=== PATIENT | female | born 1940 | race Caucasian/White ===

== ENCOUNTER → 2023-11-26 07:22 | Outpatient (REF) | payer MEDICARE, BC, SELFPAY ==
[2023-11-26 08:30] LABS: % Basophils 0.5 % (0-2); % Eosinophils 1.2 % (0-6); % Immature Granulocytes 0.3 % (0-0.5); % Lymphocytes 10.6 % (20.5-51.1); % Monocytes 8.2 % (1.7-9.3); % Neutrophils 79.2 % (42.2-75.2); Absolute Basophils 0.1 10^3/uL (0-0.2); Absolute Eosinophils 0.1 10^3/uL (0-0.7); Absolute Lymphocytes 1.1 10^3/uL (1.2-3.4); Absolute Monocytes 0.9 10^3/uL (0.1-0.6); Absolute Neutrophils 8.2 10^3/uL (1.4-6.5); Mean Corp Hgb Conc. 34.3 g/dL (33.0-37.0); Mean Corpuscular Hgb 32.3 pg (27.0-31.0); Mean Corpuscular Volume 94.1 fL (81.0-99.0); Mean Platelet Volume 9.6 fL (7.4-10.4); Nucleated Red Blood Cells % 0 %; Platelet Count 217 10^3/uL (130-400); Red Blood Cell Count 3.72 10^6/uL (4.20-5.40); Red Cell Dist. Width 12.6 % (11.5-14.5); White Blood Cell Count 10.4 10^3/uL (4.8-10.8)
[2023-11-26 09:00] LABS: ALT (SGPT) 17 U/L (0-35); AST (SGOT) 24 U/L (14-36); Alkaline Phosphatase 82 U/L (38-126); Blood Urea Nitrogen 21 mg/dl (7-17); Calcium 9.7 mg/dl (8.4-10.2); Carbon Dioxide 26 mmol/L (22-30); Chloride 105 mmol/L (98-107); Glucose 84 mg/dl (70-99); HDL Cholesterol 69 mg/dl; LDL Cholesterol, Calculated 71 mg/dl; Sodium 135 mmol/L (135-145); Total Bilirubin 0.6 mg/dl (0.2-1.3); Total Cholesterol 152 mg/dl (50-199); Total Protein 6.4 g/dl (6.3-8.2); Triglyceride 61 mg/dl (10-149); Very Low Density Lipoprotein 12 mg/dl (0-30); eGFR > 60.00
[2023-11-26 09:27] LABS: TSH Reflex To Free T4 0.79 uIU/ml (0.47-4.68)
== END ==
LOC: REG 07:22
PROVIDERS: ATTENDING PHYSICIAN Family Medicine; REFERRING PHYSICIAN Internal Medicine Cardiovascular Disease
DX: I10 Essential (primary) hypertension (principal); E78.5 Hyperlipidemia, unspecified; R79.89 Other specified abnormal findings of blood chemistry; E61.1 Iron deficiency; D64.9 Anemia, unspecified
CPT/HCPCS: 36415; 80053; 80061; 84443; 85025

== ENCOUNTER → 2023-11-30 07:45 | Outpatient (REF) | payer MEDICARE, BC, SELFPAY | LOC: WDC 07:45 | PROVIDERS: ATTENDING PHYSICIAN Family Medicine; FAMILY PHYSICIAN Student in an Organized Health Care Education/Training Program | DX: Z12.31 Encounter for screening mammogram for malignant neoplasm of breast (principal) | CPT/HCPCS: 77063; 77067 ==

== ENCOUNTER → 2023-12-23 08:03 | Outpatient (REF) | payer MEDICARE, BC, SELFPAY | LOC: RAD 08:03 | PROVIDERS: ATTENDING PHYSICIAN Nurse Practitioner Gerontology; FAMILY PHYSICIAN Family Medicine | DX: I77.810 Thoracic aortic ectasia (principal) | CPT/HCPCS: 71275; 74174; Q9967 ==

== ENCOUNTER → 2024-01-05 14:35 | Outpatient (REF) | payer MEDICARE, BC, SELFPAY | LOC: HWRCS 14:35 | PROVIDERS: ATTENDING PHYSICIAN Nurse Practitioner Gerontology; FAMILY PHYSICIAN Family Medicine; OTHER PHYSICIAN Surgery Vascular Surgery; REFERRING PHYSICIAN Internal Medicine Cardiovascular Disease | DX: I77.810 Thoracic aortic ectasia (principal) | CPT/HCPCS: 93306 ==

== ENCOUNTER → 2024-01-07 08:09 | Outpatient (REF) | payer MEDICARE, BC, SELFPAY ==
[2024-01-07 09:46] LABS: Blood Urea Nitrogen 12 mg/dl (7-17)
== END ==
LOC: REG 08:09
PROVIDERS: ATTENDING PHYSICIAN Nurse Practitioner Gerontology; FAMILY PHYSICIAN Family Medicine
DX: I77.810 Thoracic aortic ectasia (principal)
CPT/HCPCS: 36415; 82565; 84520

== ENCOUNTER → 2024-02-05 14:16 | Outpatient (REF) | payer MEDICARE, BC, SELFPAY ==
[2024-02-05 15:49] LABS: ALT (SGPT) 22 U/L (0-35); AST (SGOT) 31 U/L (14-36)
== END ==
LOC: REG 14:16
PROVIDERS: ATTENDING PHYSICIAN Internal Medicine Cardiovascular Disease; FAMILY PHYSICIAN Family Medicine; REFERRING PHYSICIAN Thoracic Surgery (Cardiothoracic Vascular Surgery)
DX: I71.012 Dissection of descending thoracic aorta (principal); R06.00 Dyspnea, unspecified
CPT/HCPCS: 36415; 84443; 84450; 84460

== ENCOUNTER → 2024-04-19 11:21 | Outpatient (REF) | payer MEDICARE, BC, SELFPAY | LOC: RAD 11:21 | PROVIDERS: ATTENDING PHYSICIAN Family Medicine; OTHER PHYSICIAN Internal Medicine Critical Care Medicine; REFERRING PHYSICIAN Internal Medicine Cardiovascular Disease | DX: J06.9 Acute upper respiratory infection, unspecified (principal) | CPT/HCPCS: 71046 ==

== ENCOUNTER → 2024-05-31 07:30 | Outpatient (REF) | payer MEDICARE, BC, SELFPAY ==
[2024-05-31 09:00] LABS: NT-proBNP 817 pg/ml
[2024-05-31 09:12] LABS: ALT (SGPT) 16 U/L (0-35); AST (SGOT) 25 U/L (14-36); Albumin 4.1 g/dl (3.5-5.0); Alkaline Phosphatase 89 U/L (38-126); Blood Urea Nitrogen 13 mg/dl (7-17); Calcium 9.9 mg/dl (8.4-10.2); Carbon Dioxide 23 mmol/L (22-30); Chloride 103 mmol/L (98-107); Glucose 89 mg/dl (70-99); HDL Cholesterol 74 mg/dl; LDL Cholesterol, Calculated 80 mg/dl; Potassium 4.4 mmol/L (3.5-5.1); Sodium 138 mmol/L (135-145); Total Bilirubin 0.4 mg/dl (0.2-1.3); Total Cholesterol 166 mg/dl (50-199); Total Protein 6.5 g/dl (6.3-8.2); Triglyceride 60 mg/dl (10-149); Very Low Density Lipoprotein 12 mg/dl (0-30); eGFR > 60.00
== END ==
LOC: REG 07:30
PROVIDERS: ATTENDING PHYSICIAN Internal Medicine Cardiovascular Disease; FAMILY PHYSICIAN Family Medicine
DX: R06.09 Other forms of dyspnea (principal); R74.8 Abnormal levels of other serum enzymes
CPT/HCPCS: 36415; 80053; 80061; 83880

== ENCOUNTER → 2024-08-30 20:22 | Outpatient (REF) | payer MEDICARE, BC, SELFPAY | LOC: MRI 20:22 | PROVIDERS: ATTENDING PHYSICIAN Physician Assistant; FAMILY PHYSICIAN Family Medicine | DX: M16.11 Unilateral primary osteoarthritis, right hip (principal); M84.351A Stress fracture, right femur, initial encounter for fracture | CPT/HCPCS: 73721 ==

== ENCOUNTER → 2024-10-05 12:50 | Outpatient (REF) | payer MEDICARE, BC, SELFPAY | LOC: HWRAD 12:50 | PROVIDERS: ATTENDING PHYSICIAN Family Medicine | DX: R22.2 Localized swelling, mass and lump, trunk (principal) | CPT/HCPCS: 76604 ==

== ENCOUNTER → 2024-10-27 07:23 | Outpatient (REF) | payer MEDICARE, BC, SELFPAY ==
[2024-10-27 10:28] LABS: TSH Reflex To Free T4 0.71 uIU/ml (0.47-4.68)
== END ==
LOC: REG 07:23
PROVIDERS: ATTENDING PHYSICIAN Internal Medicine Cardiovascular Disease
DX: I48.91 Unspecified atrial fibrillation (principal)
CPT/HCPCS: 36415; 84443

== ENCOUNTER → 2024-11-10 06:47 | Outpatient (REF) | payer MEDICARE, BC, SELFPAY | LOC: RCS 06:47 | PROVIDERS: ATTENDING PHYSICIAN Internal Medicine Cardiovascular Disease; FAMILY PHYSICIAN Family Medicine | DX: Z01.818 Encounter for other preprocedural examination (principal); R06.09 Other forms of dyspnea; I44.7 Left bundle-branch block, unspecified | CPT/HCPCS: 78452; 93017; A9500 ==

== ENCOUNTER → 2024-11-11 08:26 | Outpatient (REF) | payer MEDICARE, BC, SELFPAY | LOC: RAD 08:26 | PROVIDERS: ATTENDING PHYSICIAN Nurse Practitioner Adult Health; FAMILY PHYSICIAN Family Medicine | DX: R91.1 Solitary pulmonary nodule (principal) | CPT/HCPCS: 71250 ==

== ENCOUNTER 2024-11-28 06:10 | Day surgery (SDC) | payer MEDICARE, BC, SELFPAY ==
[2024-11-23 13:30] VITALS: BMI 25.6
[2024-11-28 10:40] VITALS: BP 143/46; BMI 26.4
[2024-11-28 10:45] VITALS: BMI 26.4
[2024-11-28 14:18] VITALS: BP 131/38; BP 133/56
[2024-11-28 14:30] VITALS: BP 123/40
[2024-11-28 14:45] VITALS: BP 135/50
[2024-11-28 14:55] VITALS: BP 126/47
[2024-11-28 15:10] VITALS: BP 123/51
== END 2024-11-28 16:10 | disposition home or self-care (01) ==
LOC: SDS 06:10
PROVIDERS: ATTENDING PHYSICIAN Internal Medicine Critical Care Medicine
DX: R91.8 Other nonspecific abnormal finding of lung field (principal); R93.89 Abnormal findings on diagnostic imaging of other specified body structures; J44.9 Chronic obstructive pulmonary disease, unspecified; Z87.891 Personal history of nicotine dependence
CPT/HCPCS: 31629; 31652; 31628; 31624; 31623; 31627; 31654; 88172; 88173; 88305; 71045; 76000; 87015; 87070; 87102; 87116; 87205; 88112; 88333; 88342; 94640; C1887

== ENCOUNTER → 2024-12-14 12:46 | Outpatient (REF) | payer MEDICARE, BC, SELFPAY | LOC: HWRCS 12:46 | PROVIDERS: ATTENDING PHYSICIAN Internal Medicine Critical Care Medicine; FAMILY PHYSICIAN Family Medicine | DX: R06.00 Dyspnea, unspecified (principal) | CPT/HCPCS: 71046; 93306 ==

== ENCOUNTER 2024-12-27 19:59 | Inpatient (IN) | payer MEDICARE, BC, SELFPAY ==
[2024-12-27] VITALS (7 sets, daily range): BP systolic 115–154; BP diastolic 37–98; BMI 28.5; BMI 27.8
[2024-12-27 16:11] LABS: % Eosinophils 1.9 % (0-6); % Immature Granulocytes 0.4 % (0-0.5); % Lymphocytes 16.6 % (20.5-51.1); % Monocytes 8.5 % (1.7-9.3); % Neutrophils 71.6 % (42.2-75.2); Absolute Basophils 0.1 10^3/uL (0-0.2); Absolute Eosinophils 0.1 10^3/uL (0-0.7); Absolute Lymphocytes 1.2 10^3/uL (1.2-3.4); Absolute Monocytes 0.6 10^3/uL (0.1-0.6); Absolute Neutrophils 5.2 10^3/uL (1.4-6.5); Hematocrit 31.5 % (37.0-47.0); Hemoglobin 10.5 g/dL (12.0-16.0); Mean Corp Hgb Conc. 33.3 g/dL (33.0-37.0); Mean Corpuscular Hgb 32.6 pg (27.0-31.0); Mean Corpuscular Volume 97.8 fL (81.0-99.0); Mean Platelet Volume 8.9 fL (7.4-10.4); Nucleated Red Blood Cells % 0 %; Platelet Count 301 10^3/uL (130-400); Red Blood Cell Count 3.22 10^6/uL (4.20-5.40); Red Cell Dist. Width 12.6 % (11.5-14.5); White Blood Cell Count 7.3 10^3/uL (4.8-10.8)
[2024-12-27 16:38] LABS: NT-proBNP 1470 pg/ml; Troponin I < 0.012 ng/ml
[2024-12-27 16:51] LABS: Chloride 107 mmol/L (98-107); Sodium 137 mmol/L (135-145)
[2024-12-27 16:52] LABS: ALT (SGPT) 19 U/L (0-35); AST (SGOT) 25 U/L (14-36); Albumin 4.1 g/dl (3.5-5.0); Alkaline Phosphatase 71 U/L (38-126); Blood Urea Nitrogen 12 mg/dl (7-17); Calcium 9.5 mg/dl (8.4-10.2); Carbon Dioxide 24 mmol/L (22-30); Estimated Creatinine Clearance 36 ml/min; Glucose 96 mg/dl (70-99); Total Bilirubin 0.5 mg/dl (0.2-1.3); Total Protein 6.3 g/dl (6.3-8.2); eGFR 55.55
--- NOTE | 2024-12-27 18:07 | ED.GENMED ---
History of Present Illness
General
Chief Complaint: Swelling
Time Seen by Provider: 12/27/24 16:49
History of Present Illness
History of Present Illness:
84-year-old female with history of COPD, hypertension, hyperlipidemia, A-fib on Xarelto presenting to the emergency department for lower extremity swelling. Patient reports symptoms for the past week. She also notes some lower extremity
discoloration. Denies significant pain to the lower extremities, however has been having issues with dyspnea, particularly on exertion. She saw her primary care doctor today who advised that she come to the hospital for further evaluation. Denies
chest pain. Denies abdominal pain. Notes chronic cough, no interval worsening. Denies fever. Reports compliance with her medications. Particularly, she has been increasing her Lasix to double of her dose in the morning and at night with no
improvement. Denies additional acute medical complaints
Past History
Past History
ED Past Medical History: Arrthythmia, Hypercholesterolemia, Valvular disease () and Other (migraines)
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
Social History
Tobacco: Non-smoker
Alcohol: None
Drug: None
Personal:
Living: with family
Employment: Retired
Family History
Family History: Other (Noncontributory)
Phy Exam
Physical Exam
Physical Exam:
General: Well-appearing, no clinical signs of dehydration, nontoxic and in no acute distress
HEENT: protecting airway
Neck: appears supple
CV: Normal heart rate, regular rhythm
Resp: No accessory muscle use, no increased work of breathing, lungs clear to auscultation bilaterally
Abd: No distention
Extremities: +2 pitting edema bilaterally without significant tenderness to palpation. Swelling appears to be symmetric. There is some skin discoloration to the la of the right leg in comparison to the left. Distal pulses are dopplerable
Neuro: alert, no focal neurologic deficit
: deferred
Rectal: deferred
Psych: Normal affect
Skin: Intact
Scores
Heart Failure Risk
Heart Failure Risk Score: Yes
History of Stroke or TIA: No
History of intubation for respiratory distress: No
Heart rate on ED arrival >/= 110: No
SaO2 <90% on arrival on room air: No
HR >/=110 during 3min walk test (or too ill to perform test): No
ECG has acute ischemic changes: No
Urea >/=12mmol/L (BUN 33.6mg/dL): No
Serum CO2>/=35mmol/L: No
Troponin I or T elevated to MA Level (0.4mg/dL): No
NT-proBNP >/=5,000ng/L (5,000pg/ml): No
HF Risk Score: 0
Admission Status: LOW RISK 2.8% Consider discharge to home with f/u visit to PCP/Educational Coordinator
Course
Orders/Labs/Results
Orders:
Orders
12/27/24 Dinner
Cholesterol Lowering
At Your Request: Full Participation
Cholesterol Lowering: Sodium, 2 Gram
12/27/24 15:56
Electrocardiogram (*1) Urgent
Reason for Study: Shortness of Breath
EKG- Treatment ONCE
12/27/24 16:03
Complete Blood Count/With Diff Urgent
Comprehensive Metabolic Panel Urgent
NT-proBNP Urgent
Troponin I Urgent
12/27/24 17:33
CR Chest - 2 Views Urgent
Comment:
Reason For Exam: lower extremity swelling, suspect CHF
12/27/24 19:04
Furosemide [Lasix] 40 mg IV NOW STA
12/27/24 19:32
CARDIOLOGY CONSULT Routine
Consulting Provider: Mike Keyes
Was physician already notified: Yes
Reason for consult: CHF, dyspnea on exertion
12/27/24 19:40
Admit/Transfer Patient As Directed
Co-Sign Provider:
Level of Care: Inpatient admission
Assign to:: Telemetry
Physician / Group: Hospitalist
Diagnosis: CHF
Reason for Telemetry: Arrhythmia
Date to Stop Telemetry: 12/30/24
Time to Stop Telemetry: 11:00
Reason for Hospitalization: CHF
Expected length of stay greater than two midnights?: Yes
ELOS- Estimated Length of Stay in days: 3
I certify the patient meets the requirements for IP care: Yes
PRN Pain Medication Management As Directed
May give lesser potent ordered pain med per pt: Yes
preference::
Protocol:: Medication orders for pain may be administered in a
manner that supports deferring to patient preference
when the pt is:
- Requesting an ordered lesser potent pain medication.
Least to most potent pain medications are defined
as: acetaminophen < NSAID < tramadol < opioids
(morphine, oxycodone, hydromorphone).
- Requesting a lesser dose of the same medication IF
ORDERED.
- Requesting a less intrusive route of administration
if both routes are prescribed by the provider (PO <
IV).
12/27/24 19:47
Code Status As Directed
Resuscitation Status: Do not resuscitate
Reached after discussion with pt or family/Healthcare POA: Yes
DNR Bracelet Application ONCE
12/27/24 20:43
Troponin I Q6H
Comment: at admission & every 6 hours x 2 (3 total), ECG to be done with each level
12/27/24 20:43
Echo 2D MMode Color/Doppler Routine
Reason for Study: heart failure
HF DIETARY CONSULT Routine
HF EDUCATOR CONSULT Routine
Comment:
Activity As Directed
Activity Level: Out of Bed-Early Mobility
Intake/ Output As Directed
Frequency: Per unit guidelines
Patient Education As Directed
Type: CHF folder
Comment: give on admission. Document in Interdisciplinary Education record
Sleep Apnea Assessment by RN As Directed
Comment:
Physician Instructions:
Vital Signs As Directed
Frequency: Other
Additional Instructions:: Q12 or per unit guidelines if more frequent.
Weight As Directed
Frequency: Daily
Type of Scale: Standing Scale
Comment: Daily morning weight. If unable to stand, use balanced bed scale.
Weight As Directed
Frequency: Once
Type of Scale: Standing Scale
Comment: Upon Admission. If unable to stand, use balanced bed scale.
Pulse Ox/cont/shift [RESP] Routine
Quantity: 1
Special Instructions: Daily pulse oximetry at rest. If greater than 92% at rest also obtain pulse oximetry
while ambulating as tolerated.
12/27/24 21:00
Budesonide/Formoterol 160/4.5 [Symbicort 160/4.5 Mcg Inhaler] 2 puff INH R BID
12/27/24 22:00
Amitriptyline [Elavil] 10 mg PO HS
Atorvastatin [Lipitor] 10 mg PO HS
12/28/24 02:43
Troponin I Q6H
Comment: at admission & every 6 hours x 2 (3 total), ECG to be done with each level
12/28/24 06:00
Cardiovascular Evaluation IN AM
Complete Blood Count/With Diff IN AM
Comprehensive Metabolic Panel IN AM
Magnesium IN AM
TSH Reflex To Free T4 IN AM
12/28/24 08:00
Amiodarone [Pacerone] 100 mg PO DAILY
Amlodipine [Norvasc] 5 mg PO DAILY
Furosemide [Lasix] 40 mg IV BID AT 0800,1600
Montelukast Sodium [Singulair] 10 mg PO DAILY
Pantoprazole [Protonix] 40 mg PO DAILY
12/28/24 08:43
Troponin I Q6H
Comment: at admission & every 6 hours x 2 (3 total), ECG to be done with each level
12/28/24 18:00
Rivaroxaban [Xarelto] 20 mg PO QPM
12/30/24 11:00
DC Protocol for Telemetry ONCE
Abnormal Lab Results
12/27/24
16:03
RBC 3.22 L 10^6/uL
(4.20-5.40)
Hgb 10.5 L g/dL
(12.0-16.0)
Hct 31.5 L %
(37.0-47.0)
MCH 32.6 H pg
(27.0-31.0)
Lymphocytes % 16.6 L %
(20.5-51.1)
12/27/24 16:03
12/27/24 16:03
Vital Signs
Initial and Last Documented VS:
Initial Vital Signs
Temp Pulse Resp BP Pulse Ox
98.5 F 73 16 130/98 99
12/27/24 15:54 12/27/24 15:54 12/27/24 15:54 12/27/24 15:54 12/27/24 15:54
Last Documented Vital Signs
Temp Pulse Resp BP Pulse Ox
98.9 F 67 16 146/54 96
12/27/24 23:27 12/27/24 23:27 12/27/24 23:27 12/27/24 23:27 12/27/24 23:27
MDM/Problems Addressed
MDM/Problems Addressed:
84-year-old female with history of atrial fibrillation on Xarelto, hypertension, hyperlipidemia, COPD presenting for worsening lower extremity edema and dyspnea, sent in by primary care doctor. Vital signs on arrival are normal.
On exam patient is resting comfortably, no acute patient does have significant swelling to lower extremities which she reports is worsening in the past week despite increasing her Lasix dosage. Concern for failure of outpatient therapy and possible
developing CHF in the setting of dyspnea and dyspnea on exertion. Plan for laboratory analysis, chest x-ray imaging. No present neurovascular compromise to the lower extremities. No significant cellulitis. There is some slight skin
discoloration. No significant pain on palpation, swelling is symmetric and patient is on Xarelto without present concern for DVT.
19:00 -CT shows possible mild CHF. BNP is elevated. Plan for admission for diuresis and likely cardiac consultation.
*EKG
Interpreted by ED Provider?: Yes
EKG Intrepretation Date: 12/27/24
EKG Intrepretation Time: 18:15
Interpretation: abnormal
Comparison EKG: no changes (11/10/24)
Heart Rate: 55
Rate: bradycardiac
Rhythm: sinus
Shidler: right axis deviation
Interval: normal interval and third degree heart block
QRS Pattern: left bundle branch block
Ischemia: non-specific ST changes
*Critical Care Note
Total Time (30-74mins, 75-104mins- exclusive of procedures): Not Applicable
ED Attending Note
-
Portions of this chart may have been created with voice recognition software.� Occasional wrong word or��sound alike� substitutions may have occurred due to the inherent limitations of voice recognition software.
Discharge Plan
Departure
Patient Disposition: Admit
Date of Disposition: 12/27/24
Time of Disposition: 19:26
Presentation/result/management discussed w/ accepting MD/DO: Hospitalist
Patient with high blood pressure during this ER visit?: No
Condition: Fair
Discharge Problem:
Swelling of both lower extremities, Dyspnea on exertion
Interventions
Interventions:
*Risk Screen - Suicide Last Done: 12/27/24 15:56
*General Assessment Last Done: 12/27/24 16:52
*Neglect/Abuse Screening Last Done: 12/27/24 15:56
*ED- Fall Risk Assessment Last Done: 12/27/24 16:52
*ED COVID-19 Vaccine History Last Done: 12/27/24 16:52
*Nursing Disposition Last Done: 12/27/24 20:30
ED- Cardiac Assessment Last Done: 12/27/24 16:52
ED- Pulmonary Assessment Last Done: 12/27/24 16:52
ED-Skin Assessment Last Done: 12/27/24 16:52
Discharge Date and Time
Discharge Date/Time: 12/27/24 20:33
[2024-12-27] MEDS: LASIX 40 MG IV (19:32)
--- NOTE | 2024-12-27 19:53 | HPS.HSE ---
Family Physician
-
Family Physician: Bridget Quintanilla MD
Chief Complaint
-
LE swelling
History of Present Illness
84yo F with PMHX of anxiety, HTN, HLD, pulmonary nodule, COPD, atopic d/o, GERD, CHF, Afib on Xarelto came with weeks of worsening LE swelling. She also gailed appr 0lbs. Noticed worsneing SOB on excertion but no chest pain. 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
instructed her to take doubled dose of lasix initially and it helped, but then swelling came back and patient was trying to take extra dose of lasix nightly for pas week before admission, but without result. Also c/o lack of appetite.
Her PCP sent her to ED
Medical History
Past Medical History
Past Medical History: Reports Other
Additional Past Medical History:
see HPI
Past Surgical History: Reports None
Social History
Tobacco: Former Smoker
Alcohol: Occasional
Drug: None
Family History
Family History: Not pertinent
Allergies / Home Medications
Allergies reflects when Allergies were last updated in [facility] [employer].
Home Medications with original date entered in [facility]
Allergy/Medication List:
Allergies
Allergy/AdvReac Type Severity Reaction Status Date / Time
albuterol Allergy Unknown Unknown Verified 11/28/24 10:51
mometasone furoate Allergy Unknown couldn't Verified 11/28/24 10:50
breathe
adhesive Allergy Rash Verified 11/28/24 10:50
Home Medications
Loratadine 10 mg PO DAILY 04/01/18
losartan 25 mg tablet 50 mg PO BID 04/01/18
rivaroxaban 20 mg tablet (Xarelto) 20 mg PO QPM #30 tabs 08/13/18
Probiotic 1 dose PO DAILY 11/23/24
amiodarone 100 mg tablet 100 mg PO DAILY 11/23/24
amitriptyline 10 mg tablet 10 mg PO HS 11/23/24
amlodipine 5 mg tablet 5 mg PO DAILY 11/23/24
atorvastatin 10 mg tablet 10 mg PO HS 11/23/24
fluticasone furoate 100 mcg-vilanterol 25 mcg/dose inhalation powder 1 inh inhalation BID 11/23/24
furosemide 20 mg tablet 20 mg PO 2100 11/23/24
furosemide 20 mg tablet 40 mg PO DAILY 11/23/24
montelukast 10 mg tablet (Singulair) 10 mg PO DAILY 11/23/24
omeprazole 40 mg capsule,delayed release 40 mg PO DAILY 11/23/24
Review of Systems
-
A 12 point ROS was completed and negative except as noted: Yes
Constitutional: Reports See HPI
Respiratory: Reports See HPI
Physical Exam
Vital Signs
Vital Signs
Temp Pulse Resp BP Pulse Ox
98.5 F 59 18 154/41 98
12/27/24 15:54 12/27/24 19:32 12/27/24 19:30 12/27/24 19:32 12/27/24 19:30
Physical Exam
General: Well Developed, No Apparent Distress and Comfortable
HEENT: NormoCephalic, Anicteric and Moist mucous membranes
Respiratory: Crackles; No Wheezes or Rales
Cardiac: S1/S2 and Regular Rhythm; No Tachycardia or Murmur
GI: Soft, Non Tender and Non Distended
Genito-urinary: No costovertebral tender
Musculoskeletal: No Clubbing, No Cyanosis, Edema, Left Lower Extremity and Edema, Right Lower Extremity
Skin: Warm; No Rash or Jaundice
Neuro: Awake, Alert, Oriented and AO x 3
Psych: Calm
Laboratory Results
-
12/27/24 16:03
12/27/24 16:03
Laboratory Results
Total Bilirubin 0.5 mg/dl (0.2-1.3) 12/27/24 16:03
AST 25 U/L (14-36) 12/27/24 16:03
ALT 19 U/L (0-35) 12/27/24 16:03
Alkaline Phosphatase 71 U/L (38-126) 12/27/24 16:03
Troponin I < 0.012 ng/ml 12/27/24 16:03
Data Reviewed
-
Diagnostic Radiology: Report Reviewed by me
Lab Data: Labs Reviewed by me
Impression/Plan
-
A/P:
#CHF exacerbation
Echo, daily weight, follow electrolytes, Cr
Cardio consult
Follow trops
Check lipids and TSH
#COPD, not in exacerbation
#Hx of pulmonary nodule
cont bronchodilators
Saw as outpatient
#Afib, unspecified
cont Xarelto, rate control telemetry
#Anemia
eventual anemia w/u
Watch CBC
#HLD
#ASCVD
#Essential HTN
#Atopic D/O
#GERD
#Insomnia
cont home meds
DVT ppx Xarelto
DNR/DNI - discussed with patient and family bedside
I have spent at least 78min admitting the patient
[2024-12-27] MEDS: LIPITOR 10 MG PO (21:11)
[2024-12-27] MEDS: ELAVIL 10 MG PO (21:11)
[2024-12-27] MEDS: SYMBICORT 160/4.5 MCG INHALER INH (22:09)
[2024-12-28] VITALS (8 sets, daily range): BP systolic 111–166; BP diastolic 47–81; PULSE 73; O2SAT 97–98; BMI 27.6
[2024-12-28 03:10] LABS: Troponin I < 0.012 ng/ml
[2024-12-28] MEDS: PROTONIX 40 MG PO (08:28)
[2024-12-28] MEDS: PACERONE 100 MG PO (08:28)
[2024-12-28] MEDS: SINGULAIR 10 MG PO (08:28)
[2024-12-28] MEDS: SYMBICORT 160/4.5 MCG INHALER 2 PUFF INH ×2 (08:30→19:29)
[2024-12-28] MEDS: NORVASC 5 MG PO (08:30)
[2024-12-28] MEDS: LASIX 40 MG IV ×3 (08:31→16:40)
[2024-12-28 08:51] LABS: % Basophils 0.9 % (0-2); % Eosinophils 2.6 % (0-6); % Immature Granulocytes 0.5 % (0-0.5); % Lymphocytes 14.4 % (20.5-51.1); % Monocytes 7.1 % (1.7-9.3); % Neutrophils 74.5 % (42.2-75.2); Absolute Basophils 0.1 10^3/uL (0-0.2); Absolute Eosinophils 0.2 10^3/uL (0-0.7); Absolute Lymphocytes 0.9 10^3/uL (1.2-3.4); Absolute Monocytes 0.5 10^3/uL (0.1-0.6); Absolute Neutrophils 4.8 10^3/uL (1.4-6.5); Hematocrit 32.2 % (37.0-47.0); Hemoglobin 10.7 g/dL (12.0-16.0); Mean Corp Hgb Conc. 33.2 g/dL (33.0-37.0); Mean Corpuscular Hgb 32.3 pg (27.0-31.0); Mean Corpuscular Volume 97.3 fL (81.0-99.0); Mean Platelet Volume 9.3 fL (7.4-10.4); Nucleated Red Blood Cells % 0 %; Platelet Count 268 10^3/uL (130-400); Red Blood Cell Count 3.31 10^6/uL (4.20-5.40); Red Cell Dist. Width 12.6 % (11.5-14.5); White Blood Cell Count 6.4 10^3/uL (4.8-10.8)
[2024-12-28 09:17] LABS: Troponin I < 0.012 ng/ml
--- NOTE | 2024-12-28 09:31 | W.PN.HOSP.TC ---
Today's Communication/Plan
-
see outlined plan below
Assessment / Plan
Assessment / Plan
echo: Normal left ventricular size and systolic function. No regional wall motion abnormalities are seen. LV ejection fraction is 55-60% by Lee's method of discs. Mild concentric left ventricular hypertrophy. Abnormal (paradoxical) septal motion
consistent with left bundle branch block
Moderate, eccentric aortic regurgitation. Mild to moderate tricuspid regurgitation. Estimated pulmonary artery pressure of 35 mmHg, Moderate pulmonic regurgitation.
Assessment:
Acute on chronic CHF exacerbation
- echo from 12/14 summarized above
- continue IV Lasix 40mg BID - requires intensive monitoring of I/Os, weights, lytes
- CHF education
- Cardiology consult
COPD, not in exacerbation
Hx of pulmonary nodule
- cont bronchodilators
- Saw as outpatient
Afib, unspecified
- continue Xarelto (renally dosed, reviewed with pharmacy)
- continue Amiodarone
- continue tele monitoring
Normocytic Anemia
- add on anemia workup
- follow CBC
HLD
ASCVD
- statin
Essential HTN
- continue CCB/ARB
Atopic D/O
GERD
Insomnia
DVT ppx: Xarelto
Code: DNR/DNI
Anticipated Discharge: > 48 hours
Subjective/Interval History
-
Date of Service: December 28, 2024
weight down 2kg per scale
Objective Data
-
Labs:
Laboratory Results
12/28/24
08:33
WBC 6.4
Hgb 10.7 L
Hct 32.2 L
Plt Count 268
Sodium Pending
Potassium Pending
Chloride Pending
Carbon Dioxide Pending
BUN Pending
Creatinine Pending
Glucose Pending
Calcium Pending
Total Bilirubin Pending
AST Pending
ALT Pending
Alkaline Phosphatase Pending
Vital Signs:
Vital Signs
Temp Pulse Resp BP Pulse Ox
98.2 F 66 16 160/52 97
12/28/24 08:28 12/28/24 08:30 12/28/24 08:30 12/28/24 08:28 12/28/24 08:30
I&O
12/27/24 12/28/24 12/29/24
06:59 06:59 06:59
Output Total 200 / 200
Balance -200 / -200
Physical Exam
-
General: No Apparent Distress
HEENT: Normocephalic and Atraumatic
Respiratory: Crackles
Cardiac: Irregular Rhythm
GI: Soft and Nontender
Musculoskeletal: Edema, Right Lower Extrem and Edema, Left Lower Extrem
Neuro: AO x 3
Psych: Calm
Data Reviewed
-
Total Time Spent with Patient (in minutes): 51
Labs: Labs Reviewed by me
[2024-12-28 09:35] LABS: ALT (SGPT) 18 U/L (0-35); AST (SGOT) 25 U/L (14-36); Albumin 3.8 g/dl (3.5-5.0); Alkaline Phosphatase 65 U/L (38-126); Blood Urea Nitrogen 9 mg/dl (7-17); Calcium 9.4 mg/dl (8.4-10.2); Carbon Dioxide 22 mmol/L (22-30); Chloride 109 mmol/L (98-107); Estimated Creatinine Clearance 58 ml/min; Glucose 91 mg/dl (70-99); HDL Cholesterol 60 mg/dl; LDL Cholesterol, Calculated 72 mg/dl; Magnesium 2.1 mg/dl (1.6-2.3); Potassium 3.9 mmol/L (3.5-5.1); Sodium 137 mmol/L (135-145); Total Bilirubin 0.6 mg/dl (0.2-1.3); Total Cholesterol 145 mg/dl (50-199); Triglyceride 68 mg/dl (10-149); Very Low Density Lipoprotein 13 mg/dl (0-30); eGFR > 60.00
[2024-12-28 09:52] LABS: TSH Reflex To Free T4 0.66 uIU/ml (0.47-4.68)
[2024-12-28 10:00] LABS: Iron 83 ug/dl (37-170)
--- NOTE | 2024-12-28 10:08 | CON.CAR ---
Addendum entered and electronically signed by Mode Forman MD 12/28/24 16:10:
I saw and examined the patient.
The Bench Molder's note was reviewed and I agree with the note.
Comment: Briefly, 84-year-old woman presenting with worsening lower extremity edema, dyspnea and weight gain concerning for acute decompensated heart failure
Still with lower extremity edema on exam and weight is higher than her reported dry weight of 138 pounds
Tells me she initially responded well to 40 mg of IV Lasix however did have much urine output today, may need to use higher dose
Would likely benefit from leg elevation and Tubigrip's to mobilize lower extremity edema
Hopefully can transition to oral Lasix in the next 24 to 48 hours
Rest per Nurys Chaves
Original Note:
Consultation
Consultation Request
Date/Time Consultation Requested: 12/27/2024 at 1932
Date/Time Consultation Performed: 12/28/2024 at 0847
Requesting Provider: Dr. Li
Performing Provider: Dr. Forman
Reason for Consultation: Acute HF
Medical History
-
History of Present Illness:
Patient came to [facility] ER last night with increased LE edema and SOB after evaluation by her PCP in the office and was admitted with acute HF and cardiology is now consulted. Patient was seen in the office on 10/25/2024 is preoperative clearance for
planned hip surgery and was recommended a dobutamine nuclear stress test which was performed on 11/10/2024 and showed no evidence of ischemia. Around that time patient had increased LE edema and her Lasix dose was increased. At the office visit on
10/25/2024 the patient was taking Lasix 40 mg a.m. and 20 mg p.m. daily, but when she noticed increased LE edema she was briefly placed on a regimen of 40 mg BID and her LE edema improved. The LE edema came back and so she went on the higher dose
again for a shorter period of time and then went back to her regular dosing so that just prior to this admission her dosing was Lasix 40 mg a.m. and 20 mg p.m. daily. Additionally patient purchased compression stockings on her own and while she was
at the [facility] and walking more than usual last week she took to wearing them 24 hours a day for at least 2 days in a row. Also while at the [facility] she was eating out for most meals except for lunch when she was making her own turkey lunch meat
sandwiches. Patient noticed increased dyspnea on exertion, but no chest pain was seen by her PCP in the office yesterday and referred to the ER due to clinical findings of acute HF. In the ER her proBNP was 1470. Patient was admitted and started
on Lasix 40 mg IV BID and she feels her LE edema is already improving.
PMH:
COPD
Pulmonary nodule
Groundglass nodule in the RML increased in size with initial bronchoscopy brushings suspicious for malignancy although final report was negative there was a suspicion of squamous metaplasia, outpatient evaluation by radiation oncology pending
Paroxysmal typical atrial flutter
Paroxysmal atrial fibrillation
s/p aneurysm repair
previously on amiodarone stopped due to GI issues in 06/2018 but later restarted for recurrent arrhythmia
Chronic Xarelto OAC
Thoracic aortic aneurysm s/p repair by Dr. King at [facility] 05/2018
HTN
HLD
chronic LBBB
coronary artery calcification by chest CT, but nonobstructive CAD by cath 03/2018
COPD
Past Medical History
Past Medical History: Other (in HPI)
Past Surgical History: Gynecological ([id number]), Orthopedic and Tonsilectomy
Social History
Tobacco: Former Smoker
Alcohol: Occasional (Once a month or last)
Drug: None
Personal:
Living: Alone
Family History
Family History: CAD (Also CHF), Cancer and Hypertension
Allergies / Home Medications
Allergy/AdvReac Type Severity Reaction Status Date / Time
adhesive Allergy Rash Verified 11/28/24 10:50
albuterol Allergy felt like Verified 12/27/24 20:59
she was
going to
pass out.
mometasone furoate Allergy couldn't Verified 12/27/24 20:59
breathe
�Medication �Instructions �Recorded �Confirmed �Type
Loratadine 10 mg PO DAILY Allergies 04/01/18 12/28/24 History
losartan 25 mg tablet 50 mg PO BID Blood Pressure 04/01/18 12/28/24 History
rivaroxaban 20 mg tablet (Xarelto) 20 mg PO QPM #30 tabs 08/13/18 12/28/24 Rx
Probiotic 1 dose PO DAILY Supplement 11/23/24 12/28/24 History
amiodarone 100 mg tablet 100 mg PO DAILY AFIB 11/23/24 12/28/24 History
amitriptyline 10 mg tablet 10 mg PO HS Mental Health/Anxiety 11/23/24 12/28/24 History
amlodipine 5 mg tablet 5 mg PO DAILY Blood Pressure 11/23/24 12/28/24 History
atorvastatin 10 mg tablet 10 mg PO HS High Cholesterol 11/23/24 12/28/24 History
fluticasone furoate 100 1 inh inhalation BID 11/23/24 11/28/24 History
mcg-vilanterol 25 mcg/dose Lung/Breathing Issues
inhalation powder
furosemide 20 mg tablet 20 mg PO 2100 Fluid 11/23/24 12/28/24 History
Retention/Swelling
furosemide 20 mg tablet 40 mg PO DAILY Fluid 11/23/24 12/28/24 History
Retention/Swelling
montelukast 10 mg tablet 10 mg PO DAILY ASTHMA 11/23/24 12/28/24 History
(Singulair)
omeprazole 40 mg capsule,delayed 40 mg PO DAILY GERD 11/23/24 12/28/24 History
release
Review of Systems
-
History Source: Patient and Family (Son on speaker phone throughout entire HPI)
All other systems: Negative unless noted
Physical Exam
Vital Signs
Temp Pulse Resp BP Pulse Ox
98.2 F 66 16 160/52 97
12/28/24 08:28 12/28/24 08:30 12/28/24 08:30 12/28/24 08:28 12/28/24 08:30
GEN: NAD. AAOx3
HEENT: EOMI, MMM
LUNGS: RA. Clear anterolaterally without wheeze or rales
CV: SR on telemetry reg, S1/S2, 2/6 PSM
ABD: ND
EXT: +1-2 right worse than left LE edema. Right worse than left LE ecchymosis, right LE ecchymosis from knee to ankle.
NEURO: Gross non-focal
SKIN: No rash
Lab Results
12/28/24 08:33
12/28/24 08:33
Troponin I < 0.012 ng/ml 12/28/24 08:33
Kyc-O-Dnnhdwqiajm Pept 1470 pg/ml 12/27/24 16:03
Impression / Plan
-
PCP: Dr. Quintanilla
Card: Dr. Lola Rosa
Impression:
Admitted with SOB and LE edema 12/27/2024
Acute HFpEF
Right worse than left LE ecchymosis and edema
COPD
Pulmonary nodule
Groundglass nodule in the RML increased in size with initial bronchoscopy brushings suspicious for malignancy although final report was negative there was a suspicion of squamous metaplasia, outpatient evaluation by radiation oncology pending
Paroxysmal typical atrial flutter
Paroxysmal atrial fibrillation
s/p aneurysm repair
previously on amiodarone stopped due to GI issues in 06/2018 but later restarted for recurrent arrhythmia
Chronic Xarelto OAC
Thoracic aortic aneurysm s/p repair by Dr. King at [facility] 05/2018
HTN
HLD
chronic LBBB
coronary artery calcification by chest CT, but nonobstructive CAD by cath 03/2018
COPD
ECHO 11/2017: EF 60%, mild MAC, mild MR, mild AI, mild TR, PAP 30-35mmHg, dilated ascending aorta 4.5cm
ECHO 08/04/18: EF 60-65%, mild MR, aortic sclerosis, mild to mod TR, PAP 31-35mmHg, mild to mod NM, stable aortic root repair
Echo 12/14/2024: EF 55 to 60%, mild concentric LVH, moderate eccentric aortic regurgitation, mild to moderate TR, moderate pulmonic regurgitation
Dobutamine nuclear stress test 11/10/2024: Perfusion imaging was normal with no definitive evidence of ischemia or prior infarct, EF 57% without WMA
Plan:
-Patient came to [facility] ER last night with increased LE edema and SOB after evaluation by her PCP in the office and was admitted with acute HF and cardiology is now consulted. Patient was seen in the office on 10/25/2024 is preoperative clearance for
planned hip surgery and was recommended a dobutamine nuclear stress test which was performed on 11/10/2024 and showed no evidence of ischemia. Around that time patient had increased LE edema and her Lasix dose was increased. At the office visit on
10/25/2024 the patient was taking Lasix 40 mg a.m. and 20 mg p.m. daily, but when she noticed increased LE edema she was briefly placed on a regimen of 40 mg BID and her LE edema improved. The LE edema came back and so she went on the higher dose
again for a shorter period of time and then went back to her regular dosing so that just prior to this admission her dosing was Lasix 40 mg a.m. and 20 mg p.m. daily. Additionally patient purchased compression stockings on her own and while she was
at the [facility] and walking more than usual last week she took to wearing them 24 hours a day for at least 2 days in a row. Also while at the [facility] she was eating out for most meals except for lunch when she was making her own turkey lunch meat
sandwiches. Patient noticed increased dyspnea on exertion, but no chest pain was seen by her PCP in the office yesterday and referred to the ER due to clinical findings of acute HF. In the ER her proBNP was 1470. Patient was admitted and started
on Lasix 40 mg IV BID and she feels her LE edema is already improving.
-ECG from last night reviewed by me and looks like SR with known chronic LBBB. ECG repeated this morning and the computer reading is atrial flutter, but I believe it is again SR with LBBB.
-EF was 55 to 60% by echo 12/14/2024 and a repeat echo was ordered and already performed. We will follow-up as she does have history of moderate eccentric aortic regurgitation
-Continue with Lasix 40 mg IV BID, patient was taking Lasix 40 mg a.m. and 20 mg p.m. daily just prior to admission
-Patient is not chronically on BB due to underlying sinus bradycardia and the preference to continue amiodarone therapy for arrhythmia suppression
-Outpatient dose of losartan 50 mg BID was held on admission for unclear reasons. Will restart now, orders placed by me
-Patient is not chronically on aldosterone antagonist due to preserved EF
-Patient is not chronically on SGLT2 inhibitor due to history of recurrent UTI
-Patient with known paroxysmal atrial fibrillation and typical flutter, but last known recurrence of arrhythmia was 07/2024. Outpatient dose of amiodarone 100 mg daily was continued for rhythm suppression. QTc 484 ms on ECG reviewed by me 01/18
-Outpatient dose of Xarelto was decreased to 15 mg daily due to reduced CrCl
-Patient has been recommended radiation therapy for RML nodule after suspicious findings on pathology even though the final report was negative for malignancy there is a strong suspicion for squamous metaplasia. Because of this her previously
planned hip surgery is indefinitely on hold
[2024-12-28 10:42] LABS: Percent Saturation 30 % (20-50); Total Iron Binding Capacity 273 ug/dl (265-497)
[2024-12-28 11:01] LABS: Folate 13.1 ng/ml (2.76-20); Vitamin B12 749 pg/ml (239-931)
--- NOTE | 2024-12-28 14:36 | W.PN.UPDATE ---
Update Note
Progress Note Update
ECGs reviewed with EP and patient with known LBBB and also h/o type 1 second degree AV block, this is why patient needed a dobutamine mibi for stress test in October. No BB, cont amiodarone. Patient will likely need eventual PPM, but no urgent
indication for PPM today. Will follow on tele throughout admission. Reviewed admission thus far with patient's son, Hugo, by phone for 18 min this morning, patient and son unaware that restaurant food owuld have more salt, but patient does not salt
food in addition.
--- NOTE | 2024-12-28 15:04 | CM ---
Patient from [facility] with Dx CHF, Afib. Receiving IV Lasix. Per nurse; requires assist of 1, ambulatory in room. PT recommends HH. OT recommends Home vs no OT needs.
Met with patient who resides alone at [facility] in a 3rd floor apartment with elevator access.
The patient was independent in ADLs and ambulation.
She receives meals at the facility, and no assistance with medications.
DME - none
VN - prior [facility]
SNF - none
PCP - Bridget Quintanilla
Pharmacy - [facility]
Patient has 3 children with son Felix nearby in [place], dtr Pam in [place] and son Felix in [place]. Patient states daughter visited today.
Offered VN - patient agreed to [facility]/HH for PT only, she declined HH nurse for HF Education.
Referral to [facility] for home PT (fax [phone]).
Plan follow up referral to [facility].
Plan home with [facility].
[2024-12-28] MEDS: COZAAR 50 MG PO ×2 (15:35→22:26)
[2024-12-28] MEDS: XARELTO 15 MG PO (18:07)
[2024-12-28] MEDS: LIPITOR 10 MG PO (22:26)
[2024-12-28] MEDS: ELAVIL 10 MG PO (22:26)
[2024-12-29 03:49] VITALS: BP 136/52
[2024-12-29 05:41] VITALS: BMI 27.6
[2024-12-29 06:19] LABS: Hematocrit 29.2 % (37.0-47.0); Mean Corp Hgb Conc. 34.2 g/dL (33.0-37.0); Mean Corpuscular Hgb 32.9 pg (27.0-31.0); Mean Corpuscular Volume 96.1 fL (81.0-99.0); Mean Platelet Volume 9.5 fL (7.4-10.4); Platelet Count 249 10^3/uL (130-400); Red Blood Cell Count 3.04 10^6/uL (4.20-5.40); Red Cell Dist. Width 12.5 % (11.5-14.5); White Blood Cell Count 7.3 10^3/uL (4.8-10.8)
[2024-12-29 06:43] LABS: Blood Urea Nitrogen 13 mg/dl (7-17); Calcium 9.4 mg/dl (8.4-10.2); Carbon Dioxide 23 mmol/L (22-30); Chloride 107 mmol/L (98-107); Estimated Creatinine Clearance 58 ml/min; Glucose 89 mg/dl (70-99); Potassium 3.7 mmol/L (3.5-5.1); Sodium 135 mmol/L (135-145); eGFR > 60.00
[2024-12-29] MEDS: SYMBICORT 160/4.5 MCG INHALER 2 PUFF INH ×2 (07:21→19:24)
[2024-12-29 08:07] VITALS: BP 135/44
[2024-12-29] MEDS: NORVASC 5 MG PO (09:05)
[2024-12-29] MEDS: COZAAR 50 MG PO ×2 (09:06→20:30)
[2024-12-29] MEDS: SINGULAIR 10 MG PO (09:07)
[2024-12-29] MEDS: PACERONE 100 MG PO (09:07)
[2024-12-29] MEDS: PROTONIX 40 MG PO (09:08)
[2024-12-29] MEDS: LASIX 40 MG IV ×2 (09:10→16:00)
[2024-12-29 11:17] VITALS: BP 136/39
--- NOTE | 2024-12-29 11:47 | W.PN.HOSP.TC ---
Today's Communication/Plan
-
continue IV Lasix
follow Cards recs
Assessment / Plan
Assessment / Plan
echo: Normal left ventricular size and systolic function. No regional wall motion abnormalities are seen. LV ejection fraction is 55-60% by Lee's method of discs. Mild concentric left ventricular hypertrophy. Abnormal (paradoxical) septal motion
consistent with left bundle branch block
Moderate, eccentric aortic regurgitation. Mild to moderate tricuspid regurgitation. Estimated pulmonary artery pressure of 35 mmHg, Moderate pulmonic regurgitation.
Assessment:
Acute on chronic CHF exacerbation
- echo from 12/14 summarized above
- continue IV Lasix 40mg BID - requires intensive monitoring of I/Os, weights, lytes
- CHF education
- Cardiology following
known LBBB and also h/o type 1 second degree AV block
Paroxysmal atrial fibrillation
- eventual pacemaker per Cards
- off BB and Amiodarone
- continue Xarelto (renally dosed, reviewed with pharmacy)
- continue tele monitoring
COPD, not in exacerbation
Hx of pulmonary nodule
- cont bronchodilators
- Saw Dr. Ferris as outpatient
Normocytic Anemia
- add on anemia workup
- follow CBC
HLD
ASCVD
- statin
Essential HTN
- continue CCB/ARB
Atopic D/O
GERD
Insomnia
DVT ppx: Xarelto
Code: DNR/DNI
Anticipated Discharge: > 48 hours
Subjective/Interval History
-
Date of Service: December 29, 2024
no sob or cp
reports some weakness when in chair - corresponded to diastolic in 30s per patient
Objective Data
-
Labs:
Laboratory Results
12/29/24
05:27
WBC 7.3
Hgb 10.0 L
Hct 29.2 L
Plt Count 249
Sodium 135
Potassium 3.7
Chloride 107
Carbon Dioxide 23
BUN 13
Creatinine 0.6
Glucose 89
Calcium 9.4
Vital Signs:
Vital Signs
Temp Pulse Resp BP Pulse Ox
98.5 F 61 16 136/39 98
12/29/24 11:17 12/29/24 11:17 12/29/24 11:17 12/29/24 11:17 12/29/24 11:17
I&O
12/28/24 12/29/24 12/30/24
06:59 06:59 06:59
Intake Total 530 / 530
Output Total 200 / 200 2049 / 2049
Balance -200 / -200 -1520 / -1520
Physical Exam
-
General: No Apparent Distress
HEENT: Normocephalic and Atraumatic
Respiratory: Negative Wheezes
Cardiac: Regular Rhythm and S1/S2
GI: Soft and Nontender
Genito-urinary: No Costovertebral Tender
Neuro: AO x 3
Psych: Calm
Data Reviewed
-
Total Time Spent with Patient (in minutes): 51
Labs: Labs Reviewed by me
--- NOTE | 2024-12-29 12:05 | W.PN.CARDCBS ---
Addendum entered and electronically signed by Cedric Renee MD 12/29/24 18:18:
I saw and examined the patient.
The Dispatcher Chief Oil's note was reviewed and I agree with the note.
Comment:
GEN: No distress, awake, Ox3
HEENT: supple, anicteric, mmm
LUNGS: CTA, no wheezes/rales
CV: Reg, S1/S2, /6 syst LSB, no gallop
ABD: soft, BS+, NT/ND
EXT: +1 edema
NEURO: Gross non-focal
SKIN: No rash
Plan:
Continues to diurese and slowly improving. Will continue IV Lasix for another 24 hours likely switch to p.o. in a.m.
Reviewed telemetry. Still in sinus rhythm with intermittent second-degree AV block. Overall the amount of AV block is improved.
Will continue low-dose amiodarone 100 mg daily. I again discussed pacemaker with her and with electrophysiology. Plan is to hold off for now and continue these discussions and follow on telemetry.
Continue Xarelto. Replete potassium. CReat 0.6
Original Note:
Today's Communication / Plan
-
Continue IV lasix
Intermittent bradycardia noted w/ known 2nd degree type 1 AV block.
Not on BB. Continue low dose amiodarone 100mg daily for now
Continue Xarelto
Replete K
Impression / Plan
-
PCP: Dr. Quintanilla
Card: Dr. Lola Rosa
Impression:
Admitted with SOB and LE edema 12/27/2024
Acute HFpEF
Right worse than left LE ecchymosis and edema
COPD
Pulmonary nodule
Groundglass nodule in the RML increased in size with initial bronchoscopy brushings suspicious for malignancy although final report was negative there was a suspicion of squamous metaplasia, outpatient evaluation by radiation oncology pending
Paroxysmal typical atrial flutter
Paroxysmal atrial fibrillation
s/p aneurysm repair
previously on amiodarone stopped due to GI issues in 06/2018 but later restarted for recurrent arrhythmia
Chronic Xarelto OAC
Thoracic aortic aneurysm s/p repair by Dr. King at [facility] 05/2018
HTN
HLD
chronic LBBB
coronary artery calcification by chest CT, but nonobstructive CAD by cath 03/2018
COPD
ECHO 11/2017: EF 60%, mild MAC, mild MR, mild AI, mild TR, PAP 30-35mmHg, dilated ascending aorta 4.5cm
ECHO 08/04/2018: EF 60-65%, mild MR, aortic sclerosis, mild to mod TR, PAP 31-35mmHg, mild to mod MT, stable aortic root repair
Echo 12/14/2024: EF 55 to 60%, mild concentric LVH, moderate eccentric aortic regurgitation, mild to moderate TR, moderate pulmonic regurgitation
Dobutamine nuclear stress test 11/10/2024: Perfusion imaging was normal with no definitive evidence of ischemia or prior infarct, EF 57% without WMA
Plan:
-Presented with SOB and LE edema. Admitted with acute heart failure exacerbation.
-Diuresing with IV lasix 40mg BID. Weight stable overnight at 141 lbs. Dry weight felt to be 138 lbs.
-Will increase lasix to 60mg for tonight's PM dose and will reassess in AM
-Creat 0.6. Continue daily weights, I&Os.
-Breathing and edema are improving.
-Known LBBB as well as h/o bradycardia w/ type 1 second degree AV block. She will likely need eventual PPM, however no urgent indication.
-Reviewed rhythm strip from this AM at 6:44 where HR dropped into 30s. Patient unsure if she was awake or not at this time. Denies any known lightheadedness, but states intermittently she will have some fatigue and weakness. No h/o syncope.
-Not on beta marvel due to bradycardia. Continue low dose amiodarone for now.
-Echo 12/14 with preserved EF, moderate AR as noted above.
-Continues on losartan. No SGLT2 inhibitor due to recurrent UTI.
-Continues on Xarelto for h/o afib.
-K 3.7 with mag 2.0. Will replete K
-TSH 0.66
HPI: Patient came to [facility] ER last night with increased LE edema and SOB after evaluation by her PCP in the office and was admitted with acute HF and cardiology is now consulted. Patient was seen in the office on 10/25/2024 is preoperative clearance
for planned hip surgery and was recommended a dobutamine nuclear stress test which was performed on 11/10/2024 and showed no evidence of ischemia. Around that time patient had increased LE edema and her Lasix dose was increased. At the office visit
on 10/25/2024 the patient was taking Lasix 40 mg a.m. and 20 mg p.m. daily, but when she noticed increased LE edema she was briefly placed on a regimen of 40 mg BID and her LE edema improved. The LE edema came back and so she went on the higher dose
again for a shorter period of time and then went back to her regular dosing so that just prior to this admission her dosing was Lasix 40 mg a.m. and 20 mg p.m. daily. Additionally patient purchased compression stockings on her own and while she was
at the [facility] and walking more than usual last week she took to wearing them 24 hours a day for at least 2 days in a row. Also while at the [facility] she was eating out for most meals except for lunch when she was making her own turkey lunch meat
sandwiches. Patient noticed increased dyspnea on exertion, but no chest pain was seen by her PCP in the office yesterday and referred to the ER due to clinical findings of acute HF. In the ER her proBNP was 1470. Patient was admitted and started
on Lasix 40 mg IV BID and she feels her LE edema is already improving.
Progress Note - Package Pick Up
Subjective
Date of Service: December 29, 2024
Feeling well. No dizziness or syncope
Objective
Labs:
12/29/24 05:27
12/29/24 05:27
Labs
Hgb 10.0 g/dL (12.0-16.0) L 12/29/24 05:27
Hct 29.2 % (37.0-47.0) L 12/29/24 05:27
Plt Count 249 10^3/uL (130-400) 12/29/24 05:27
Sodium 135 mmol/L (135-145) 12/29/24 05:27
Potassium 3.7 mmol/L (3.5-5.1) 12/29/24 05:27
BUN 13 mg/dl (7-17) 12/29/24 05:27
Creatinine 0.6 mg/dL (0.6-1.0) 12/29/24 05:27
Glucose 89 mg/dl (70-99) 12/29/24 05:27
Troponins
12/27/24 12/27/24 12/28/24
16:03 20:43 02:33
Troponin I < 0.012 Cancelled < 0.012
12/28/24
08:33
Troponin I < 0.012
Vital Signs and I&O:
Vital Signs
Temp Pulse Resp BP Pulse Ox
98.5 F 61 16 136/39 98
12/29/24 11:17 12/29/24 11:17 12/29/24 11:17 12/29/24 11:17 12/29/24 11:17
Vital Signs
Temp Pulse Resp BP Pulse Ox
98.5 F 61 16 136/39 98
12/29/24 11:17 12/29/24 11:17 12/29/24 11:17 12/29/24 11:17 12/29/24 11:17
Intake & Output
12/27/24 12/28/24 12/29/24 12/30/24
06:59 06:59 06:59 06:59
Intake Total 530 / 530
Output Total 200 / 200 2049 / 2049
Balance -200 / -200 -1520 / -1520
Physical Exam
Physical Exam
GEN: No distress, awake, alert, oriented x3
HEENT: supple, anicteric, mmm
LUNGS: CTA b/l, no wheezes/rales
CV: Reg, S1/S2, 2/6 syst murmur
EXT: No clubbing or cyanosis. Trace edema
NEURO: Gross non-focal
SKIN: Warm, dry, no rash
[2024-12-29 15:23] VITALS: BP 122/48
[2024-12-29] MEDS: KCL 40 MEQ PO (16:00)
[2024-12-29] MEDS: XARELTO 15 MG PO (18:12)
[2024-12-29 19:22] VITALS: BP 114/40
[2024-12-29] MEDS: LIPITOR 10 MG PO (20:31)
[2024-12-29] MEDS: ELAVIL 10 MG PO (20:31)
[2024-12-29 23:35] VITALS: BP 144/49
[2024-12-30] VITALS (7 sets, daily range): BP systolic 125–152; BP diastolic 44–52; O2SAT 99; BMI 27.4
[2024-12-30 05:53] LABS: Hemoglobin 10.1 g/dL (12.0-16.0); Mean Corp Hgb Conc. 33.7 g/dL (33.0-37.0); Mean Corpuscular Hgb 32.6 pg (27.0-31.0); Mean Corpuscular Volume 96.8 fL (81.0-99.0); Mean Platelet Volume 9.3 fL (7.4-10.4); Platelet Count 221 10^3/uL (130-400); Red Cell Dist. Width 12.5 % (11.5-14.5)
[2024-12-30 06:18] LABS: Blood Urea Nitrogen 11 mg/dl (7-17); Calcium 9.7 mg/dl (8.4-10.2); Carbon Dioxide 24 mmol/L (22-30); Chloride 109 mmol/L (98-107); Estimated Creatinine Clearance 58 ml/min; Glucose 88 mg/dl (70-99); Potassium 4.4 mmol/L (3.5-5.1); Sodium 136 mmol/L (135-145); eGFR > 60.00
[2024-12-30] MEDS: SYMBICORT 160/4.5 MCG INHALER 2 PUFF INH ×2 (08:08→19:29)
[2024-12-30] MEDS: PACERONE 100 MG PO (08:32)
[2024-12-30] MEDS: FLUSH (NSS) 1 FLUSH IV ×2 (08:33→16:38)
[2024-12-30] MEDS: NORVASC 5 MG PO (08:33)
[2024-12-30] MEDS: COZAAR 50 MG PO ×2 (08:33→20:16)
[2024-12-30] MEDS: LASIX 40 MG IV ×2 (08:33→16:38)
[2024-12-30] MEDS: SINGULAIR 10 MG PO (08:33)
[2024-12-30] MEDS: PROTONIX 40 MG PO (08:33)
--- NOTE | 2024-12-30 08:36 | W.PN.HOSP.TC ---
Today's Communication/Plan
-
Possible discharge in a.m. on oral
Assessment / Plan
Assessment / Plan
Impression:
Patient is 84 years old female with history of diastolic CHF, LBBB, COPD, anemia, hyperlipidemia, hypertension who was admitted for acute on chronic CHF exacerbation, started on IV Lasix, cardiology consulted,
echo: Normal left ventricular size and systolic function. No regional wall motion abnormalities are seen. LV ejection fraction is 55-60% by Lee's method of discs. Mild concentric left ventricular hypertrophy. Abnormal (paradoxical) septal motion
consistent with left bundle branch block
Moderate, eccentric aortic regurgitation. Mild to moderate tricuspid regurgitation. Estimated pulmonary artery pressure of 35 mmHg, Moderate pulmonic regurgitation.
Overall shortness of breath improved, plan to discharge her 12/31 on oral Lasix.
Assessment/Plan:
Acute on chronic diasolic CHF exacerbation
- echo from 12/14 summarized above
- continue IV Lasix 40mg BID - requires intensive monitoring of I/Os, weights, lytes
- CHF education
- Cardiology following
known LBBB and also h/o type 1 second degree AV block
Paroxysmal atrial fibrillation
- eventual pacemaker per Cards
- off BB and Amiodarone
- continue Xarelto (renally dosed, reviewed with pharmacy)
- continue tele monitoring
COPD, not in exacerbation
Hx of pulmonary nodule
- cont bronchodilators
- Saw Dr. Ferris as outpatient
Normocytic Anemia
- add on anemia workup
- follow CBC
HLD
ASCVD
- statin
Essential HTN
- continue CCB/ARB
Atopic D/O
GERD
Insomnia
DVT ppx: Xarelto
Code: DNR/DNI
Family communication: Discussed with daughter and son-in-law at bedside.
Disposition: Discharge home in a.m.
Total time spent on today's encounter was 65 minutes which included time spent in counseling the patient/family regarding diagnosis and treatment plan as listed above, goals of care, and symptom management. Case was discussed with nursing staff,
specialists, and care coordinators/case management. All labs and imaging personally reviewed by me. Remainder the time spent in detailed review of previous records, lab data, imaging, and other medical provider documentation.
Anticipated Discharge: Within 24 hours
Subjective/Interval History
-
Date of Service: December 30, 2024
Patient seen and examined at bedside, denies any chest pain , shortness of breath Improved, no abdominal pain, no nausea, no vomiting, no diarrhea or constipation.
lower extremity edema improved.
Objective Data
-
Labs:
Laboratory Results
12/30/24
05:21
WBC 7.0
Hgb 10.1 L
Hct 30.0 L
Plt Count 221
Sodium 136
Potassium 4.4
Chloride 109 H
Carbon Dioxide 24
BUN 11
Creatinine 0.6
Glucose 88
Calcium 9.7
Vital Signs:
Vital Signs
Temp Pulse Resp BP Pulse Ox
98.2 F 65 16 129/46 97
12/30/24 07:30 12/30/24 08:12 12/30/24 08:12 12/30/24 07:30 12/30/24 08:27
I&O
12/29/24 12/30/24 12/31/24
06:59 06:59 06:59
Intake Total 530 / 530 720 / 720
Output Total 2049 / 2049 1924 / 1924
Balance -1520 / -1520 -1205 / -1205
Physical Exam
-
General: Well Developed, Well Nourished, No Apparent Distress and Comfortable
HEENT: Normocephalic, Atraumatic, Moist Mucous Membranes, No Ptosis, PERRLA and Nose Appears Normal
Respiratory: Rales and Non Labored Respirations
Cardiac: Regular Rhythm and S1/S2
Breast: Deferred by me
GI: Soft, Nontender, Nondistended and Normal Bowel Sounds
Genito-urinary: No Costovertebral Tender
Musculoskeletal: No Clubbing, No Cyanosis, Edema, Right Lower Extrem and Edema, Left Lower Extrem
Skin: Warm
Neuro: Awake, Alert, Oriented, AO x 3 and No Motor Deficits
Psych: Calm
Data Reviewed
-
Diagnostic Radiology: Image personally visualized and interpreted and Report Reviewed by me
CT Scan: Image personally visualized and interpreted and Report Reviewed by me
Ultrasound: Image personally visualized and interpreted and Report Reviewed by me
MRI: Image personally visualized and interpreted and Report Reviewed by me
Medical Tests (Nuc Med, Echo etc): Image personally visualized and interpreted and Report Reviewed by me
Labs: Labs Reviewed by me
Old Records: Reviewed
--- NOTE | 2024-12-30 10:14 | W.PN.CARDCBS ---
Addendum entered and electronically signed by Dean Malhotra MD 12/30/24 19:15:
84-year-old woman admitted on December 28 with acute on chronic HFpEF
PMH/PSH: COPD, Pulmonary nodule right middle lobe, thoracic aortic aneurysm repair 2017, hypertension, hyperlipidemia left bundle branch block, nonobstructive CAD, history of Wenckebach block, on amiodarone, history of UTIs, not on SGLT2 antagonist,
not on spironolactone
Outpatient meds: Amiodarone 100 mg a day, Ambien trip to wean, amlodipine, atorvastatin, furosemide 40 mg a.m. 20 mg p.m., losartan 50 mg twice daily, rivaroxaban
Current meds: Amiodarone 100 mg a day, and triptan, resolved, singular, Symbicort, atorvastatin 10 mg at at bedtime, amlodipine 5 mg daily, furosemide 40 mg IV twice daily, rivaroxaban 15 every 8 hours S, losartan 50 twice daily
129/46, pulse 69 7, 63.6 kg, admission weight was 66.2 kg, intake and output -1.2 L, Pleasant, lungs are clear, regular rate and rhythm, no obvious murmurs, extremities without much edema
Echo 01/18: EF 55-60%, mildly dilated RV, mild LVH, mild to moderate TR, pulmonary artery systolic pressure 30 mmHg, moderate AI, trace MR, pulmonary artery pressure 30
Impression:
See below, agree with findings, assessments and recommendations as per Nelda Whitney
Plan:
Overall she looks well. Could consider the addition of spironolactone, will defer to her primary it sales consultant as an outpatient. She is not a good candidate for SGLT2 antagonists given UTIs.
Continue furosemide through today and transition to oral in a.m. Will start 60 mg twice daily by mouth, outpatient dose was 40 mg a.m. and 20 mg p.m.
Outpatient cardiac follow-up arranged
Original Note:
Today's Communication / Plan
-
Continue IV diuresis today then consider transition to Oral Lasix in a.m. and discharge home on 40 mg twice a day
Will need BMP as outpatient in 1 week
Outpatient cardiology follow-up has been arranged
Anticipate discharge within next 24 hours
Impression / Plan
-
PCP: Dr. Quintanilla
Card: Dr. Lola Rosa
Impression:
Admitted with SOB and LE edema 12/27/2024
Acute HFpEF
Right worse than left LE ecchymosis and edema
COPD
Pulmonary nodule
Groundglass nodule in the RML increased in size with initial bronchoscopy brushings suspicious for malignancy although final report was negative there was a suspicion of squamous metaplasia, outpatient evaluation by radiation oncology pending
Paroxysmal typical atrial flutter
Paroxysmal atrial fibrillation
s/p aneurysm repair
previously on amiodarone stopped due to GI issues in 06/2018 but later restarted for recurrent arrhythmia
Chronic Xarelto OAC
Thoracic aortic aneurysm s/p repair by Dr. King at [facility] 05/2018
HTN
HLD
chronic LBBB
coronary artery calcification by chest CT, but nonobstructive CAD by cath 03/2018
COPD
ECHO 11/2017: EF 60%, mild MAC, mild MR, mild AI, mild TR, PAP 30-35mmHg, dilated ascending aorta 4.5cm
ECHO 08/04/2018: EF 60-65%, mild MR, aortic sclerosis, mild to mod TR, PAP 31-35mmHg, mild to mod OR, stable aortic root repair
Echo 12/14/2024: EF 55 to 60%, mild concentric LVH, moderate eccentric aortic regurgitation, mild to moderate TR, moderate pulmonic regurgitation
Dobutamine nuclear stress test 11/10/2024: Perfusion imaging was normal with no definitive evidence of ischemia or prior infarct, EF 57% without WMA
Plan:
-Presented 12/27/2024 with SOB and LE edema. Admitted with acute heart failure exacerbation, proBNP 1470
-Diuresing with IV lasix 40mg BID. Weight stable overnight at 139 lbs. Dry weight felt to be 138 lbs. likely transition to oral Lasix in a.m. of 12/31/2024. May benefit from higher dose of 40 mg twice a day at discharge
-Creat 0.6. Continue daily weights, I&Os.
-Breathing and edema are improving.
-Known LBBB as well as h/o bradycardia w/ type 1 second degree AV block. She will likely need eventual PPM, however no urgent indication and can be reassessed as outpatient.
-Reviewed rhythm strip from this AM at 6:44 where HR dropped into 30s. Patient unsure if she was awake or not at this time. Denies any known lightheadedness, but states intermittently she will have some fatigue and weakness. No h/o syncope.
-Not on beta marvel due to bradycardia. Continue low dose amiodarone for now.
-Echo 12/14 with preserved EF, moderate AR as noted above.
-Continues on losartan. No SGLT2 inhibitor due to recurrent UTI
-Continues on Xarelto for h/o afib.
-K 4.4, mag 2.0. Will replete K
-TSH 0.66
HPI: Patient came to [facility] ER last night with increased LE edema and SOB after evaluation by her PCP in the office and was admitted with acute HF and cardiology is now consulted. Patient was seen in the office on 10/25/2024 is preoperative clearance
for planned hip surgery and was recommended a dobutamine nuclear stress test which was performed on 11/10/2024 and showed no evidence of ischemia. Around that time patient had increased LE edema and her Lasix dose was increased. At the office visit
on 10/25/2024 the patient was taking Lasix 40 mg a.m. and 20 mg p.m. daily, but when she noticed increased LE edema she was briefly placed on a regimen of 40 mg BID and her LE edema improved. The LE edema came back and so she went on the higher dose
again for a shorter period of time and then went back to her regular dosing so that just prior to this admission her dosing was Lasix 40 mg a.m. and 20 mg p.m. daily. Additionally patient purchased compression stockings on her own and while she was
at the [facility] and walking more than usual last week she took to wearing them 24 hours a day for at least 2 days in a row. Also while at the [place] she was eating out for most meals except for lunch when she was making her own turkey lunch meat
sandwiches. Patient noticed increased dyspnea on exertion, but no chest pain was seen by her PCP in the office yesterday and referred to the ER due to clinical findings of acute HF. In the ER her proBNP was 1470. Patient was admitted and started
on Lasix 40 mg IV BID and she feels her LE edema is already improving.
Progress Note - Api Developer
Subjective
Date of Service: December 30, 2024
Patient seen and examined. Patient sitting up in bed. Reports she was able to freshen up this morning and restroom without any shortness of breath. Edema continues to improve.
Objective
Labs:
12/30/24 05:21
12/30/24 05:21
Labs
Hgb 10.1 g/dL (12.0-16.0) L 12/30/24 05:21
Hct 30.0 % (37.0-47.0) L 12/30/24 05:21
Plt Count 221 10^3/uL (130-400) 12/30/24 05:21
Sodium 136 mmol/L (135-145) 12/30/24 05:21
Potassium 4.4 mmol/L (3.5-5.1) 12/30/24 05:21
BUN 11 mg/dl (7-17) 12/30/24 05:21
Creatinine 0.6 mg/dL (0.6-1.0) 12/30/24 05:21
Glucose 88 mg/dl (70-99) 12/30/24 05:21
Troponins
12/27/24 12/27/24 12/28/24
16:03 20:43 02:33
Troponin I < 0.012 Cancelled < 0.012
12/28/24
08:33
Troponin I < 0.012
Vital Signs and I&O:
Vital Signs
Temp Pulse Resp BP Pulse Ox
98.2 F 69 16 129/46 97
12/30/24 07:30 12/30/24 08:33 12/30/24 08:12 12/30/24 08:33 12/30/24 08:27
Vital Signs
Temp Pulse Resp BP Pulse Ox
98.2 F 69 16 129/46 97
12/30/24 07:30 12/30/24 08:33 12/30/24 08:12 12/30/24 08:33 12/30/24 08:27
Intake & Output
12/28/24 12/29/24 12/30/24 12/31/24
06:59 06:59 06:59 06:59
Intake Total 530 / 530 720 / 720
Output Total 200 / 200 2049 / 2049 1924 / 1924
Balance -200 / -200 -1520 / -1520 -1205 / -1205
Physical Exam
Physical Exam
GEN: No distress, awake, Ox3
HEENT: supple, anicteric, mmm
LUNGS: CTA, no wheezes/rales
CV: Reg, S1/S2, 1/6 systolic murmur, rub or gallop
ABD: soft, BS+, NT/ND
EXT: Trace edema, no clubbing or cyanosis, Tubigrip's in place
NEURO: Gross non-focal
SKIN: No rash
--- NOTE | 2024-12-30 16:32 | PTCARENOTE ---
Pt AAO x3, DODD well, OOB in room/to BR; ambulated in [place] with PT; alton well, no c/o weakness/dizziness. VSS. Telemetry:NSR with first degree AVB/BBC. On room air- pulse ox 99%, no SOB noted. Abd obese, soft, alton PO well. Voids clear yellow
urine on specipan. Resting comfortably at present. Will continue to monitor.
[2024-12-30] MEDS: XARELTO 15 MG PO (18:01)
[2024-12-30] MEDS: LIPITOR 10 MG PO (20:16)
[2024-12-30] MEDS: ELAVIL 10 MG PO (20:16)
[2024-12-31 03:55] VITALS: BP 104/53
[2024-12-31 06:00] VITALS: BMI 27.0
[2024-12-31 07:05] LABS: Hematocrit 31.4 % (37.0-47.0); Hemoglobin 10.7 g/dL (12.0-16.0); Mean Corp Hgb Conc. 34.1 g/dL (33.0-37.0); Mean Corpuscular Hgb 32.4 pg (27.0-31.0); Mean Corpuscular Volume 95.2 fL (81.0-99.0); Mean Platelet Volume 9.4 fL (7.4-10.4); Platelet Count 230 10^3/uL (130-400); Red Cell Dist. Width 12.4 % (11.5-14.5); White Blood Cell Count 7.5 10^3/uL (4.8-10.8)
[2024-12-31 07:30] LABS: Blood Urea Nitrogen 12 mg/dl (7-17); Calcium 9.7 mg/dl (8.4-10.2); Carbon Dioxide 23 mmol/L (22-30); Chloride 106 mmol/L (98-107); Estimated Creatinine Clearance 49 ml/min; Glucose 82 mg/dl (70-99); Magnesium 2.1 mg/dl (1.6-2.3); Potassium 4.3 mmol/L (3.5-5.1); Sodium 133 mmol/L (135-145); eGFR > 60.00
[2024-12-31] MEDS: SYMBICORT 160/4.5 MCG INHALER 2 PUFF INH (08:07)
[2024-12-31] MEDS: PACERONE 100 MG PO (08:24)
[2024-12-31] MEDS: PROTONIX 40 MG PO (08:25)
[2024-12-31 08:28] VITALS: BP 107/51
[2024-12-31] MEDS: SINGULAIR 10 MG PO (08:29)
[2024-12-31] MEDS: LASIX 60 MG PO (08:29)
--- NOTE | 2024-12-31 10:17 | W.PN.CARDCBS ---
Today's Communication / Plan
-
Okay for discharge from cardiac standpoint
See below for recommendations
Impression / Plan
-
PCP: Dr. Quintanilla
Card: Dr. Lola Rosa
Impression:
Admitted with SOB and LE edema 12/27/2024
Acute HFpEF
Right worse than left LE ecchymosis and edema
COPD
Pulmonary nodule
Groundglass nodule in the RML increased in size with initial bronchoscopy brushings suspicious for malignancy although final report was negative there was a suspicion of squamous metaplasia, outpatient evaluation by radiation oncology pending
Paroxysmal typical atrial flutter
Paroxysmal atrial fibrillation
s/p aneurysm repair
previously on amiodarone stopped due to GI issues in 06/2018 but later restarted for recurrent arrhythmia
Chronic Xarelto OAC
Thoracic aortic aneurysm s/p repair by Dr. King at [facility] 05/2018
HTN
HLD
chronic LBBB
coronary artery calcification by chest CT, but nonobstructive CAD by cath 03/2018
COPD
ECHO 11/2017: EF 60%, mild MAC, mild MR, mild AI, mild TR, PAP 30-35mmHg, dilated ascending aorta 4.5cm
ECHO 08/04/2018: EF 60-65%, mild MR, aortic sclerosis, mild to mod TR, PAP 31-35mmHg, mild to mod TN, stable aortic root repair
Echo 12/14/2024: EF 55 to 60%, mild concentric LVH, moderate eccentric aortic regurgitation, mild to moderate TR, moderate pulmonic regurgitation
Dobutamine nuclear stress test 11/10/2024: Perfusion imaging was normal with no definitive evidence of ischemia or prior infarct, EF 57% without WMA
Plan:
She looks well, from my standpoint and is ready for discharge.
Recommended cardiac medications at discharge:
Amiodarone 100 mg a day
Atorvastatin 10 mg at bedtime
Amlodipine 5 mg daily
Rivaroxaban 15 mg a day
Losartan 50 mg p.o. twice daily
Furosemide 60 mg twice daily (Increased dose)
Please check BMP in 1 week
We will arrange for cardiac follow-up
HPI: Patient came to [facility] ER last night with increased LE edema and SOB after evaluation by her PCP in the office and was admitted with acute HF and cardiology is now consulted. Patient was seen in the office on 10/25/2024 is preoperative clearance
for planned hip surgery and was recommended a dobutamine nuclear stress test which was performed on 11/10/2024 and showed no evidence of ischemia. Around that time patient had increased LE edema and her Lasix dose was increased. At the office visit
on 10/25/2024 the patient was taking Lasix 40 mg a.m. and 20 mg p.m. daily, but when she noticed increased LE edema she was briefly placed on a regimen of 40 mg BID and her LE edema improved. The LE edema came back and so she went on the higher dose
again for a shorter period of time and then went back to her regular dosing so that just prior to this admission her dosing was Lasix 40 mg a.m. and 20 mg p.m. daily. Additionally patient purchased compression stockings on her own and while she was
at the [facility] [place] and walking more than usual last week she took to wearing them 24 hours a day for at least 2 days in a row. Also while at the [place] she was eating out for most meals except for lunch when she was making her own turkey lunch meat
sandwiches. Patient noticed increased dyspnea on exertion, but no chest pain was seen by her PCP in the office yesterday and referred to the ER due to clinical findings of acute HF. In the ER her proBNP was 1470. Patient was admitted and started
on Lasix 40 mg IV BID and she feels her LE edema is already improving.
Progress Note - Anode Crew Supervisor
Subjective
Date of Service: December 31, 2024:
84-year-old woman admitted on December 28 with acute on chronic HFpEF
PMH/PSH: COPD, Pulmonary nodule right middle lobe, thoracic aortic aneurysm repair 2017, hypertension, hyperlipidemia left bundle branch block, nonobstructive CAD, history of Wenckebach block, on amiodarone, history of UTIs, not on SGLT2 antagonist,
not on spironolactone
Outpatient meds: Amiodarone 100 mg a day, Ambien trip to wean, amlodipine, atorvastatin, furosemide 40 mg a.m. 20 mg p.m., losartan 50 mg twice daily, rivaroxaban
Current meds: Amiodarone 100 mg a day, amitriptyline, pantoprazole singular, Symbicort, atorvastatin 10 mg at at bedtime, amlodipine 5 mg daily, furosemide 60 mg twice daily, rivaroxaban 15 milligrams, losartan 50 twice daily
107/51, pulse 82, respiratory 18, afebrile, sats 96%, intake and output -1.2 L, weight is 62.7 kg, down 0.9 kg
Hemoglobin is 10.7 white count of 7.5, platelets are 230, BUN and creatinine are 12 and 0.7, potassium is 4.3
Echo 01/18: EF 55-60%, mildly dilated RV, mild LVH, mild to moderate TR, pulmonary artery systolic pressure 30 mmHg, moderate AI, trace MR, pulmonary artery pressure 30
Telemetry: Relatively bradycardic but adequate, some second-degree heart block, type I
Objective
Labs:
12/31/24 05:55
12/31/24 05:55
Labs
Hgb 10.7 g/dL (12.0-16.0) L 12/31/24 05:55
Hct 31.4 % (37.0-47.0) L 12/31/24 05:55
Plt Count 230 10^3/uL (130-400) 12/31/24 05:55
Sodium 133 mmol/L (135-145) L 12/31/24 05:55
Potassium 4.3 mmol/L (3.5-5.1) 12/31/24 05:55
BUN 12 mg/dl (7-17) 12/31/24 05:55
Creatinine 0.7 mg/dL (0.6-1.0) 12/31/24 05:55
Glucose 82 mg/dl (70-99) 12/31/24 05:55
Vital Signs and I&O:
Vital Signs
Temp Pulse Resp BP Pulse Ox
36.6 C 82 18 107/51 96
12/31/24 08:28 12/31/24 08:29 12/31/24 08:28 12/31/24 08:29 12/31/24 08:28
Vital Signs
Temp Pulse Resp BP Pulse Ox
36.6 C 82 18 107/51 96
12/31/24 08:28 12/31/24 08:29 12/31/24 08:28 12/31/24 08:29 12/31/24 08:28
Intake & Output
12/29/24 12/30/24 12/31/24 01/01/25
07:59 07:59 07:59 07:59
Intake Total 530 / 530 720 / 720 2099 / 2099
Output Total 2049 / 2049 1925 / 1924 3260 / 3260
Balance -1520 / -1520 -1205 / -1205 -1160 / -1160
Physical Exam
Physical Exam
See above
[2024-12-31 11:23] VITALS: BP 132/54
--- NOTE | 2024-12-31 12:07 | W.PN.HOSP.TC ---
Today's Communication/Plan
-
Discharge home today.
Assessment / Plan
Assessment / Plan
Impression:
Patient is 84 years old female with history of diastolic CHF, LBBB, COPD, anemia, hyperlipidemia, hypertension who was admitted for acute on chronic CHF exacerbation, started on IV Lasix, cardiology consulted,
echo: Normal left ventricular size and systolic function. No regional wall motion abnormalities are seen. LV ejection fraction is 55-60% by Lee's method of discs. Mild concentric left ventricular hypertrophy. Abnormal (paradoxical) septal motion
consistent with left bundle branch block
Moderate, eccentric aortic regurgitation. Mild to moderate tricuspid regurgitation. Estimated pulmonary artery pressure of 35 mmHg, Moderate pulmonic regurgitation.
Overall shortness of breath improved, plan to discharge her 12/31 on oral Lasix.
Cardiology recommending the following medication on discharge:
Amiodarone 100 mg a day
Atorvastatin 10 mg at bedtime
Amlodipine 5 mg daily
Rivaroxaban 15 mg a day
Losartan 50 mg p.o. twice daily
Furosemide 60 mg twice daily (Increased dose)
Please check BMP in 1 week
Assessment/Plan:
Acute on chronic diasolic CHF exacerbation
- echo from 12/14 summarized above
- continue IV Lasix 40mg BID - requires intensive monitoring of I/Os, weights, lytes
- CHF education
- Cardiology following
12/31
Discharge home today on Lasix 60 mg twice daily
known LBBB and also h/o type 1 second degree AV block
Paroxysmal atrial fibrillation
- eventual pacemaker per Cards
- off BB and Amiodarone
- continue Xarelto (renally dosed, reviewed with pharmacy)
- continue tele monitoring
COPD, not in exacerbation
Hx of pulmonary nodule
- cont bronchodilators
- Saw Dr. Ferris as outpatient
Normocytic Anemia
- add on anemia workup
- follow CBC
HLD
ASCVD
- statin
Essential HTN
- continue CCB/ARB
Atopic D/O
GERD
Insomnia
DVT ppx: Xarelto
Code: DNR/DNI
Family communication: Discussed with daughter and son-in-law at bedside.
Disposition: Discharge home today.
Total time spent on today's encounter was 65 minutes which included time spent in counseling the patient/family regarding diagnosis and treatment plan as listed above, goals of care, and symptom management. Case was discussed with nursing staff,
specialists, and care coordinators/case management. All labs and imaging personally reviewed by me. Remainder the time spent in detailed review of previous records, lab data, imaging, and other medical provider documentation.
Anticipated Discharge: Today
Subjective/Interval History
-
Date of Service: December 31, 2024
Patient seen and examined at bedside, denies any chest pain or shortness of breath, no abdominal pain, no nausea, no vomiting, no diarrhea or constipation.
Objective Data
-
Labs:
Laboratory Results
12/31/24
05:55
WBC 7.5
Hgb 10.7 L
Hct 31.4 L
Plt Count 230
Sodium 133 L
Potassium 4.3
Chloride 106
Carbon Dioxide 23
BUN 12
Creatinine 0.7
Glucose 82
Calcium 9.7
Vital Signs:
Vital Signs
Temp Pulse Resp BP Pulse Ox
98 F 71 18 132/54 98
12/31/24 11:23 12/31/24 11:23 12/31/24 11:23 12/31/24 11:23 12/31/24 11:23
I&O
12/30/24 12/31/24 01/01/25
06:59 06:59 06:59
Intake Total 720 / 720 2100 / 2100 240 / 240
Output Total 1925 / 1925 3260 / 3260 350 / 350
Balance -1205 / -1205 -1160 / -1160 -110 / -110
Physical Exam
-
General: Well Developed, Well Nourished, No Apparent Distress and Comfortable
HEENT: Normocephalic, Atraumatic, Moist Mucous Membranes, No Ptosis, PERRLA and Nose Appears Normal
Respiratory: Rales and Non Labored Respirations
Cardiac: Regular Rhythm and S1/S2
Breast: Deferred by me
GI: Soft, Nontender, Nondistended and Normal Bowel Sounds
Genito-urinary: No Costovertebral Tender
Musculoskeletal: No Clubbing, No Cyanosis, Edema, Right Lower Extrem and Edema, Left Lower Extrem
Skin: Warm
Neuro: Awake, Alert, Oriented, AO x 3 and No Motor Deficits
Psych: Calm
Data Reviewed
-
Diagnostic Radiology: Image personally visualized and interpreted and Report Reviewed by me
CT Scan: Image personally visualized and interpreted and Report Reviewed by me
Ultrasound: Image personally visualized and interpreted and Report Reviewed by me
MRI: Image personally visualized and interpreted and Report Reviewed by me
Medical Tests (Nuc Med, Echo etc): Image personally visualized and interpreted and Report Reviewed by me
Labs: Labs Reviewed by me
Old Records: Reviewed
--- NOTE | 2024-12-31 12:12 | W.DCSUMMARY ---
Discharge Summary
Discharge Data
Date of Admission: 12/27/24
Date of Discharge: 12/31/24
-
Pending Results: No
Hospital Course
Hospital course
Patient is 84 years old female with history of diastolic CHF, LBBB, COPD, anemia, hyperlipidemia, hypertension who was admitted for acute on chronic CHF exacerbation, started on IV Lasix, cardiology consulted,
echo: Normal left ventricular size and systolic function. No regional wall motion abnormalities are seen. LV ejection fraction is 55-60% by Lee's method of discs. Mild concentric left ventricular hypertrophy. Abnormal (paradoxical) septal motion
consistent with left bundle branch block
Moderate, eccentric aortic regurgitation. Mild to moderate tricuspid regurgitation. Estimated pulmonary artery pressure of 35 mmHg, Moderate pulmonic regurgitation.
Overall shortness of breath improved, plan to discharge her 12/31 on oral Lasix.
Cardiology recommending the following medication on discharge:
Amiodarone 100 mg a day
Atorvastatin 10 mg at bedtime
Amlodipine 5 mg daily
Rivaroxaban 15 mg a day
Losartan 50 mg p.o. twice daily
Furosemide 60 mg twice daily (Increased dose)
Please check BMP in 1 week
During hospitalization patient was treated from the following
Acute on chronic diasolic CHF exacerbation
- echo from 12/14 summarized above
- continue IV Lasix 40mg BID - requires intensive monitoring of I/Os, weights, lytes
- CHF education
- Cardiology following
12/31
Discharge home today on Lasix 60 mg twice daily
known LBBB and also h/o type 1 second degree AV block
Paroxysmal atrial fibrillation
- eventual pacemaker per Cards
- off BB and Amiodarone
- continue Xarelto (renally dosed, reviewed with pharmacy)
- continue tele monitoring
COPD, not in exacerbation
Hx of pulmonary nodule
- cont bronchodilators
- Saw Dr. Ferris as outpatient
Normocytic Anemia
- add on anemia workup
- follow CBC
HLD
ASCVD
- statin
Essential HTN
- continue CCB/ARB
Atopic D/O
GERD
Insomnia
DVT ppx: Xarelto
Code: DNR/DNI
Family communication: Discussed with daughter and son-in-law at bedside.
Disposition: Discharge home today.
Total time spent on today's encounter was 40 minutes which included time spent in counseling the patient/family regarding diagnosis and treatment plan as listed above, goals of care, and symptom management. Case was discussed with nursing staff,
specialists, and care coordinators/case management. All labs and imaging personally reviewed by me. Remainder the time spent in detailed review of previous records, lab data, imaging, and other medical provider documentation.
Anticipated Discharge: Today
Discharge Plan
-
Patient Disposition: Home (Routine Discharge)
Discharge Diagnosis/Procedures: Acute on chronic diastolic CHF
Paroxysmal atrial fibrillation.
Diet: Low Cholesterol and 2 Gram Sodium
Activity: As tolerated
Blood Work: BMP in 1 week
Referrals:
Bridget Quintanilla MD [Family Provider, Family Practice]
Maral Monreal PA-C [Specified Professional Personl, Cardiology] - 01/04/25 9:00 am
Referral Note: You have cardiology follow-up with Maral Monreal are on 01/04/2025 at 9 AM in [place] in the [place]. If you are unable to make this appointment please call [phone] to reschedule
Prescriptions:
New
losartan 50 mg Tablet
50 mg PO BID Qty: 60 0RF
furosemide 20 mg Tablet
60 mg PO BID AT 0800,1600 30 Days Qty: 180 0RF
Xarelto 15 mg Tablet
15 mg PO QPM 30 Days Qty: 30 0RF
(DME) Basal metabolic
See Rx Instructions .Route .MEDSUPPLY Qty: 1 0RF
Rx Instructions:
To be done after 1 week
Diagnosis:
Congestive heart failure
Continued
Loratadine 10 MG Tablet
10 mg PO DAILY
atorvastatin 10 mg Tablet
10 mg PO HS
amlodipine 5 mg Tablet
5 mg PO DAILY
omeprazole 40 mg Capsule,Delayed Release(Dr/Ec)
40 mg PO DAILY
montelukast [Singulair] 10 mg Tablet
10 mg PO DAILY
amiodarone 100 mg Tablet
100 mg PO DAILY
amitriptyline 10 mg tablet
10 mg PO HS
fluticasone furoate-vilanterol 100-25 mcg/dose blister with device
1 inh INHALATION BID
Probiotic
1 dose PO DAILY
Discontinued
losartan 25 MG tablet
50 mg PO BID
Xarelto 20 MG tablet
20 mg PO QPM Qty: 30 1RF
furosemide 20 mg tablet
40 mg PO DAILY
furosemide 20 mg Tablet
20 mg PO 2100
Discharge Orders:
Discharge Patient (As Directed); Ordered 12/31/24
Ordered By: Cayden Ernst
Discharge Date and Time
Print Language: BELARUSIAN
--- NOTE | 2024-12-31 12:38 | CM ---
Met with pt at bedside.
IMM completed.
Son to transport.
Confirmed plan is to dc home with Marcin PT.
[2024-12-31] MEDS: NORVASC PO (12:41)
[2024-12-31] MEDS: COZAAR PO (12:41)
== END 2024-12-31 15:30 | disposition home health service (06) | DRG 291 ==
LOC: 4 EAST ACU 19:59
PROVIDERS: Emergency Medicine; Internal Medicine; ADMITTING PHYSICIAN Internal Medicine; ATTENDING PHYSICIAN General Practice; EMERGENCY PHYSICIAN Student in an Organized Health Care Education/Training Program; FAMILY PHYSICIAN Family Medicine; OTHER PHYSICIAN Internal Medicine Cardiovascular Disease
DX: I11.0 Hypertensive heart disease with heart failure (principal); I50.33 Acute on chronic diastolic (congestive) heart failure; I48.92 Unspecified atrial flutter; I48.0 Paroxysmal atrial fibrillation; Z79.01 Long term (current) use of anticoagulants; E78.00 Pure hypercholesterolemia, unspecified; J44.89 Other specified chronic obstructive pulmonary disease; K21.9 Gastro-esophageal reflux disease without esophagitis; Z87.891 Personal history of nicotine dependence; D64.9 Anemia, unspecified; I25.10 Atherosclerotic heart disease of native coronary artery without angina pectoris; G47.00 Insomnia, unspecified; Z66 Do not resuscitate; Z79.899 Other long term (current) drug therapy; G43.909 Migraine, unspecified, not intractable, without status migrainosus
CPT/HCPCS: 71046; 80048; 80053; 80061; 82607; 82728; 82746; 83540; 83550; 83735; 83880; 84443; 84484; 85025; 85027; 93005; 93306; 94640; 96374; 97116; 97163; 97166; 97530; 97535; 99285

== ENCOUNTER → 2025-01-04 15:09 | Outpatient (REF) | payer MEDICARE, BC, SELFPAY | LOC: WDC 15:09 | PROVIDERS: ATTENDING PHYSICIAN Family Medicine | DX: Z12.31 Encounter for screening mammogram for malignant neoplasm of breast (principal) | CPT/HCPCS: 77063; 77067 ==

== ENCOUNTER → 2025-01-05 08:01 | Outpatient (REF) | payer MEDICARE, BC, SELFPAY | LOC: RAD 08:01 | PROVIDERS: ATTENDING PHYSICIAN Nurse Practitioner; FAMILY PHYSICIAN Family Medicine; REFERRING PHYSICIAN Internal Medicine Critical Care Medicine | DX: Z98.890 Other specified postprocedural states (principal); Z86.79 Personal history of other diseases of the circulatory system | CPT/HCPCS: 71275; 74174; Q9967 ==

== ENCOUNTER → 2025-01-06 07:59 | Outpatient (REF) | payer MEDICARE, BC, SELFPAY ==
[2025-01-06 13:59] LABS: Blood Urea Nitrogen 12 mg/dl (7-17); Calcium 9.3 mg/dl (8.4-10.2); Carbon Dioxide 26 mmol/L (22-30); Chloride 106 mmol/L (98-107); Glucose 80 mg/dl (70-99); Potassium 4.4 mmol/L (3.5-5.1); Sodium 137 mmol/L (135-145); eGFR > 60.00
== END ==
LOC: REG 07:59
PROVIDERS: ATTENDING PHYSICIAN General Practice; FAMILY PHYSICIAN Family Medicine; OTHER PHYSICIAN Internal Medicine Cardiovascular Disease; OTHER PHYSICIAN Nurse Practitioner
DX: Z09 Encounter for follow-up examination after completed treatment for conditions other than malignant neoplasm (principal); Z98.890 Other specified postprocedural states; Z86.79 Personal history of other diseases of the circulatory system
CPT/HCPCS: 36415; 80048

== ENCOUNTER 2025-01-07 17:42 | Emergency (ER) | payer MEDICARE, BC, SELFPAY ==
[2025-01-07 17:50] VITALS: BP 147/45
[2025-01-07 18:15] VITALS: BP 134/41
[2025-01-07 18:18] VITALS: BMI 27.5
[2025-01-07] MEDS: DECADRON 10 MG PO (18:35)
[2025-01-07] MEDS: DUONEB 3 ML INH (18:36)
[2025-01-07 18:50] LABS: % Basophils 0.8 % (0-2); % Eosinophils 0.5 % (0-6); % Immature Granulocytes 0.3 % (0-0.5); % Lymphocytes 23.1 % (20.5-51.1); % Neutrophils 62.3 % (42.2-75.2); Absolute Lymphocytes 0.9 10^3/uL (1.2-3.4); Absolute Monocytes 0.5 10^3/uL (0.1-0.6); Absolute Neutrophils 2.4 10^3/uL (1.4-6.5); Hematocrit 30.9 % (37.0-47.0); Hemoglobin 10.6 g/dL (12.0-16.0); Mean Corp Hgb Conc. 34.3 g/dL (33.0-37.0); Mean Corpuscular Volume 93.4 fL (81.0-99.0); Mean Platelet Volume 9.9 fL (7.4-10.4); Nucleated Red Blood Cells % 0 %; Platelet Count 170 10^3/uL (130-400); Red Blood Cell Count 3.31 10^6/uL (4.20-5.40); Red Cell Dist. Width 12.3 % (11.5-14.5); White Blood Cell Count 3.9 10^3/uL (4.8-10.8)
--- NOTE | 2025-01-07 18:50 | ED.GENMED ---
History of Present Illness
General
Chief Complaint: Breathing Problem
Source: patient and family
Exam Limitations: none
Time Seen by Provider: 01/07/25 18:06
Nursing documentation reviewed up to this point in time: agreed with
History of Present Illness
History of Present Illness:
84-year-old female with past medical history of COPD previous smoker, A-fib currently on Xarelto, history of heart failure recent hospital admission 1 week ago, previous aortic aneurysm repair presenting to the emergency department today with
concerns of cough shortness of breath congestion over the past 24 hours or so. She claims this feels different than her typical CHF exacerbations. Denies any fevers nausea vomiting abdominal pain or chest pain.
Past History
Past History
ED Past Medical History: Arrthythmia, Hypercholesterolemia, Valvular disease () and Other (migraines)
ED Past Surgical History: Cardiac (ACR, Aortic aneurism repair May 2018 at [facility])
Social History
Tobacco: Non-smoker
Alcohol: None
Drug: None
Personal:
Living: with family
Employment: Retired
Family History
Family History: Other (Noncontributory)
Review of Systems
Review of Systems
Allergies reviewed?: Yes
All Other Systems: ROS reviewed and negative except as documented in HPI and ROS
Phy Exam
Physical Exam
Physical Exam:
GENERAL: Alert , in no apparent distress
EYE: pupils equal and reactive
NECK: Supple, no significant adenopathy.
ENT: o/p clr, mmm.
CARDIAC: Regular rate and rhythm .
LUNGS: Diffuse end expiratory wheeze
ABDOMEN: Soft, without focal tenderness, no r/g, no cvat
NEUROLOGICAL: Alert and oriented, no focal neuro deficits
SKIN: Warm and dry, skin intact.
MUSCULOSKELETAL: No edema, well perfused.
PSYCH: Normal and appropriate interaction.
Scores
Heart Failure Risk
Heart Failure Risk Score: Not Applicable
Course
Orders/Labs/Results
Orders:
Orders
01/07/25 17:42
Electrocardiogram (*1) Urgent
Reason for Study: Shortness of Breath
01/07/25 18:20
Dexamethasone Pf [Decadron] 10 mg PO NOW STA
Ipratropium/Albuterol Sulfate [Duoneb] 3 ml INH R NOW STA
01/07/25 18:21
Electrocardiogram (*1) Stat
Reason for Study: Other
Other Reason for Exam: pneumonia
EKG- Treatment ONCE
CR Chest - 2 Views Urgent
Comment:
Reason For Exam: cough sob
01/07/25 18:39
Complete Blood Count/With Diff Urgent
Comprehensive Metabolic Panel Urgent
NT-proBNP Urgent
01/07/25 20:21
Azithromycin [Zithromax] 500 mg PO NOW STA
Abnormal Lab Results
01/07/25
18:39
WBC 3.9 L 10^3/uL
(4.8-10.8)
RBC 3.31 L 10^6/uL
(4.20-5.40)
Hgb 10.6 L g/dL
(12.0-16.0)
Hct 30.9 L %
(37.0-47.0)
MCH 32.0 H pg
(27.0-31.0)
Absolute Lymphs (auto) 0.9 L 10^3/uL
(1.2-3.4)
Monocytes % 13.0 H %
(1.7-9.3)
Sodium 131 L mmol/L
(135-145)
BUN 19 H mg/dl
(7-17)
Total Protein 6.2 L g/dl
(6.3-8.2)
01/07/25 18:39
01/07/25 18:39
Vital Signs
Initial and Last Documented VS:
Initial Vital Signs
Temp Pulse Resp Pulse Ox
98.0 F 73 16 98
01/07/25 17:45 01/07/25 17:45 01/07/25 17:45 01/07/25 17:45
Last Documented Vital Signs
Temp Pulse Resp BP Pulse Ox
98.0 F 73 16 143/48 98
01/07/25 17:45 01/07/25 17:45 01/07/25 17:45 01/07/25 20:00 01/07/25 20:00
MDM/Problems Addressed
MDM/Problems Addressed:
84-year-old female presenting to the emergency department today with concerns of cough congestion shortness of breath over the past 24 hours. Feels different than previous heart failure exacerbations. Feels more consistent with COPD or viral
syndrome. Here she has a hacking cough and expiratory wheeze. Pulse ox and other vital signs are normal. Plan to start steroid as well as breathing treatment. Patient claims his symptoms significant proved after receiving a breathing treatment
as well as steroid. Wheezing seems to be improved on assessment and is very minimal at this point pulse ox remaining at 96% when walking here in the ER. She does appear to be stable for discharge. No evidence of pneumonia. The possibility of
using azithromycin was discussed with the patient however her QT is prolonged. She was advised to not continue the azithromycin considering the prolonged QT level. Otherwise stable for discharge return precautions given.
*Critical Care Note
Total Time (30-74mins, 75-104mins- exclusive of procedures): Not Applicable
ED Attending Note
-
Portions of this chart may have been created with voice recognition software.� Occasional wrong word or��sound alike� substitutions may have occurred due to the inherent limitations of voice recognition software.
Discharge Plan
Departure
Patient Disposition: Home (Routine Discharge)
Date of Disposition: 01/07/25
Time of Disposition: 20:22
Patient with high blood pressure during this ER visit?: No
Condition: Good
Covid-19: Not Applicable
Discharge Problem:
COPD exacerbation
Instructions: Exacerbation of COPD (DC)
Prescriptions:
New
prednisone 20 mg tablet
40 mg PO DAILY 4 Days Qty: 8 0RF
No Action
Loratadine 10 MG Tablet
10 mg PO DAILY
atorvastatin 10 mg Tablet
10 mg PO HS
amlodipine 5 mg Tablet
5 mg PO DAILY
omeprazole 40 mg Capsule,Delayed Release(Dr/Ec)
40 mg PO DAILY
montelukast [Singulair] 10 mg Tablet
10 mg PO DAILY
amiodarone 100 mg Tablet
100 mg PO DAILY
amitriptyline 10 mg tablet
10 mg PO HS
fluticasone furoate-vilanterol 100-25 mcg/dose blister with device
1 inh INHALATION BID
Probiotic
1 dose PO DAILY
losartan 50 mg Tablet
50 mg PO BID Qty: 60 0RF
furosemide 20 mg Tablet
60 mg PO BID AT 0800,1600 30 Days Qty: 180 0RF
Xarelto 15 mg Tablet
15 mg PO QPM 30 Days Qty: 30 0RF
(DME) Basal metabolic panel
See Rx Instructions .Route .MEDSUPPLY Qty: 1 0RF
Rx Instructions:
To be done after one week
Diagnosis: Congestive heart failure.
please fax result to PCP and cardiology.
Referrals:
Bridget Quintanilla MD [Family Provider, Family Practice]
Activity Restrictions/Additional Instructions:
You came to the emergency department today with concerns of upper respiratory symptoms. You were found to have a slight wheeze indicating potential COPD exacerbation. Please take the prescribed steroid as well as azithromycin to help with
symptoms. Please follow closely with the primary care doctor in the next week or so. Return for any worsening, new or concerning symptoms.
Interventions
Interventions:
*Risk Screen - Suicide Last Done: 01/07/25 17:45
*General Assessment Last Done: 01/07/25 17:45
*Neglect/Abuse Screening Last Done: 01/07/25 20:44
*ED- Fall Risk Assessment Last Done: 01/07/25 18:43
*ED COVID-19 Vaccine History Last Done: 01/07/25 18:43
*Nursing Disposition Last Done: 01/07/25 20:44
ED- Cardiac Assessment Last Done: 01/07/25 18:43
ED- Pulmonary Assessment Last Done: 01/07/25 18:43
Discharge Date and Time
Discharge Date/Time: 01/07/25 20:45
Print Language: ARABIC
[2025-01-07 18:59] LABS: ALT (SGPT) 19 U/L (0-35); AST (SGOT) 31 U/L (14-36); Albumin 3.8 g/dl (3.5-5.0); Alkaline Phosphatase 57 U/L (38-126); Blood Urea Nitrogen 19 mg/dl (7-17); Calcium 9.1 mg/dl (8.4-10.2); Carbon Dioxide 22 mmol/L (22-30); Chloride 102 mmol/L (98-107); Estimated Creatinine Clearance 44 ml/min; Glucose 99 mg/dl (70-99); Potassium 3.9 mmol/L (3.5-5.1); Sodium 131 mmol/L (135-145); Total Bilirubin 0.5 mg/dl (0.2-1.3); Total Protein 6.2 g/dl (6.3-8.2); eGFR > 60.00
[2025-01-07 19:00] VITALS: BP 118/83
[2025-01-07 19:08] LABS: NT-proBNP 1090 pg/ml
[2025-01-07 20:00] VITALS: BP 143/48
[2025-01-07] MEDS: ZITHROMAX 500 MG PO (20:23)
== END 2025-01-07 20:45 | disposition home or self-care (01) ==
LOC: EMR 17:42
PROVIDERS: Physician Assistant; EMERGENCY PHYSICIAN Student in an Organized Health Care Education/Training Program; FAMILY PHYSICIAN Family Medicine
DX: J44.1 Chronic obstructive pulmonary disease with (acute) exacerbation (principal); E78.00 Pure hypercholesterolemia, unspecified; I35.0 Nonrheumatic aortic (valve) stenosis; I50.9 Heart failure, unspecified; G43.909 Migraine, unspecified, not intractable, without status migrainosus; K57.92 Diverticulitis of intestine, part unspecified, without perforation or abscess without bleeding; K21.9 Gastro-esophageal reflux disease without esophagitis; M19.90 Unspecified osteoarthritis, unspecified site; Z87.820 Personal history of traumatic brain injury; Z87.440 Personal history of urinary (tract) infections; Z86.16 Personal history of COVID-19; Z87.891 Personal history of nicotine dependence; Z79.01 Long term (current) use of anticoagulants; Z88.8 Allergy status to other drugs, medicaments and biological substances; Z91.048 Other nonmedicinal substance allergy status
CPT/HCPCS: 99284; 94640; 71046; 80053; 83880; 85025; 93005

== ENCOUNTER → 2025-01-10 13:59 | Outpatient (REF) | payer MEDICARE, BC, SELFPAY | LOC: REG 13:59 | PROVIDERS: ATTENDING PHYSICIAN Internal Medicine Critical Care Medicine; FAMILY PHYSICIAN Family Medicine | DX: R91.1 Solitary pulmonary nodule (principal); Z79.899 Other long term (current) drug therapy; J20.9 Acute bronchitis, unspecified | CPT/HCPCS: 87070; 87077; 87186; 87205 ==

== ENCOUNTER 2025-01-14 00:05 | Inpatient (IN) | payer MEDICARE, BC, SELFPAY ==
[2025-01-13 18:24] VITALS: BMI 27.6
[2025-01-13 18:37] VITALS: BP 115/60
[2025-01-13 19:12] LABS: % Basophils 0.1 % (0-2); % Eosinophils 0.8 % (0-6); % Immature Granulocytes 0.7 % (0-0.5); % Lymphocytes 12.4 % (20.5-51.1); % Monocytes 8.3 % (1.7-9.3); % Neutrophils 77.7 % (42.2-75.2); Absolute Eosinophils 0.1 10^3/uL (0-0.7); Absolute Immature Granulocytes 0.1 10^3/uL (0-0.05); Absolute Lymphocytes 1.5 10^3/uL (1.2-3.4); Absolute Neutrophils 9.2 10^3/uL (1.4-6.5); Hemoglobin 11.1 g/dL (12.0-16.0); Mean Corp Hgb Conc. 34.7 g/dL (33.0-37.0); Mean Corpuscular Hgb 32.5 pg (27.0-31.0); Mean Corpuscular Volume 93.6 fL (81.0-99.0); Mean Platelet Volume 9.5 fL (7.4-10.4); Nucleated Red Blood Cells % 0 %; Platelet Count 249 10^3/uL (130-400); Red Blood Cell Count 3.42 10^6/uL (4.20-5.40); Red Cell Dist. Width 12.1 % (11.5-14.5); White Blood Cell Count 11.8 10^3/uL (4.8-10.8)
[2025-01-13 19:52] LABS: ALT (SGPT) 15 U/L (0-35); AST (SGOT) 17 U/L (14-36); Albumin 3.7 g/dl (3.5-5.0); Alkaline Phosphatase 71 U/L (38-126); Blood Urea Nitrogen 11 mg/dl (7-17); Calcium 9.2 mg/dl (8.4-10.2); Carbon Dioxide 24 mmol/L (22-30); Chloride 102 mmol/L (98-107); Glucose 91 mg/dl (70-99); Potassium 3.3 mmol/L (3.5-5.1); Sodium 132 mmol/L (135-145); Total Bilirubin 0.5 mg/dl (0.2-1.3); eGFR > 60.00
[2025-01-13 20:24] LABS: NT-proBNP 1970 pg/ml
[2025-01-13 20:39] LABS: Troponin I 0.024 ng/ml
--- NOTE | 2025-01-13 20:49 | PHANOTE ---
01/13/2025, pt. recently prescribed Budesonide 0.5 mg/2ml BID to take with her Ipratropium [place] 0.02% solution; took first dose yesterday (1/2 vial) and experienced negative side effects and hasn't taken since.
[2025-01-13 22:00] VITALS: BP 164/44
--- NOTE | 2025-01-13 22:39 | ED.GENMED ---
History of Present Illness
General
Chief Complaint: Cough
Time Seen by Provider: 01/13/25 20:17
History of Present Illness
History of Present Illness:
Note:
CHIEF COMPLAINT(S)
Cough with sputum production.
HISTORY OF PRESENT ILLNESS
The patient is an 84-year-old female with a history of congestive heart failure and recent hospitalization, presenting with a worsening cough and sputum production over the past few days. She reports the sputum as initially green and now band straightener
green. She denies any fever and regularly monitors her temperature. She has experienced swelling in her legs, previously managed with increased doses of furosemide due to heart failure. She reports dyspnea on exertion and difficulty breathing when
walking, with episodic exacerbation of her symptoms potentially related to her heart failure, despite regular use of a nebulizer. She started levofloxacin yesterday for bronchitis but has noted deterioration since. Her breathing difficulties and
cough have worsened over the last two days, impacting her sleep and requiring her to remain upright. Her medical history is significant for aortic valve replacement and an aortic aneurysm repair. She has been on a significant dosage of furosemide
(multiple doses of 60 mg daily) for fluid management and is unsure of her current medication dosage.
ADDITIONAL HISTORY OBTAINED FROM SOURCES OTHER THAN THE PATIENT
According to a family member, the patient was prescribed prednisone and later levofloxacin for her respiratory symptoms but experienced worsening symptoms over the past two days.
CHRONIC MEDICAL CONDITIONS SIGNIFICANTLY AFFECTING CARE
Chronic conditions affecting care: congestive heart failure, atrial fibrillation, status post aortic valve replacement, aortic aneurysm repair, requiring anticoagulation.
PHYSICAL EXAM
- General: Patient is alert and oriented.
- Respiratory: course on auscultation. no wheezes, no rails
- Cardiovascular: Regular rate and rhythm.
- Extremities: Bilateral lower extremity edema noted.
- Abdomen: Non-distended.
Nursing notes reviewed and vital signs reviewed.
DIFFERENTIAL DIAGNOSIS
The Differential Diagnosis includes, in no particular order and is not limited to:
- Bronchitis
- Heart failure exacerbation
- Pneumonia
- Chronic obstructive pulmonary disease exacerbation
- Pulmonary embolism
- Upper respiratory tract infection
- Asthma exacerbation
- Viral infection
- Medication side effects
- Aortic dissection
EKG
My independent EKG interpretation is:
- Rhythm: AFiB
- Heart rate: 64
- UT interval: Nl
- LBBB
- QT interval: Normal
- Varney: Normal axis
- Abnormalities: No ischemic changes noted
Disposition:
SUMMARY OF ENCOUNTER
An 84-year-old female with a history of congestive heart failure and atrial fibrillation presented with worsening cough, dyspnea, and orthopnea. The patient is currently on levofloxacin for bronchitis and reported deterioration in symptoms. She
received a prior dose of levofloxacin and was treated with IV furosemide in the emergency department.
DISPOSITION
Admit for IV diuresis and further assessment. She is known to pulmonology and may benefit from a pulmonary evaluation.
ASSESSMENT
Congestive heart failure exacerbation potentially complicated by bronchitis. Atrial fibrillation may be contributing to symptoms.
EMERGENCY TREATMENTS ADMINISTERED
Administration of a small dose of IV Lasix. Repletion of potassium due to hypokalemia.
INDEPENDENT REVIEW OF LABS AND INTERPRETATION OF TESTS
- My independent review of BNP is elevated, consistent with congestive heart failure exacerbation.
- My independent review of the CBC shows a very slight white blood cell increase.
- My independent review of the chest X-ray is unremarkable, showing no evidence of focal pneumonia.
- My independent review of potassium shows hypokalemia.
- My independent review of troponin is normal.
MEDICATION RECONCILIATION
The patient received a dose of levofloxacin today and was administered IV furosemide and potassium repletion due to hypokalemia.
MEDICAL DECISION MAKING
1. Number & Complexity of Problems:
- Chronic conditions affecting care: congestive heart failure, atrial fibrillation, bronchitis.
- Differential diagnoses include bronchitis and heart failure exacerbation.
2. Data Reviewed: Labs, imaging, and telemetry monitoring were reviewed.
3. Risk: Consideration of admission was made due to complexity and risk. Admission for inpatient management is appropriate based on ongoing symptoms and need for IV diuretics.
PATHOLOGIES TO CONSIDER
- Heart failure exacerbation
- Bronchitis
- Atrial fibrillation-related symptoms
Past History
Past History
ED Past Medical History: Arrthythmia, Hypercholesterolemia, Valvular disease () and Other (migraines)
ED Past Surgical History: Cardiac (ACR, Aortic aneurism repair May 2018 at [facility])
Social History
Tobacco: Non-smoker
Alcohol: None
Drug: None
Personal:
Living: with family
Employment: Retired
Family History
Family History: Other (Noncontributory)
Phy Exam
Physical Exam
Physical Exam:
.
Course
Orders/Labs/Results
Orders:
Orders
01/13/25 18:26
Electrocardiogram (*1) Urgent
Reason for Study: Shortness of Breath
01/13/25 18:27
EKG- Treatment ONCE
01/13/25 18:55
Chest [CR Chest - 2 Views ] Urgent
Comment:
Reason For Exam: sob
01/13/25 18:56
Complete Blood Count/With Diff Urgent
Comprehensive Metabolic Panel Urgent
Pro-BNP [NT-proBNP] Urgent
Troponin I Urgent
01/13/25 22:40
Furosemide [Lasix] 20 mg IV NOW STA
Potassium Chloride 10% Elixir [KCl Elixir] 40 meq PO NOW STA
Abnormal Lab Results
01/13/25
18:56
WBC 11.8 H 10^3/uL
(4.8-10.8)
RBC 3.42 L 10^6/uL
(4.20-5.40)
Hgb 11.1 L g/dL
(12.0-16.0)
Hct 32.0 L %
(37.0-47.0)
MCH 32.5 H pg
(27.0-31.0)
Abs Immat Gran (auto) 0.1 H 10^3/uL
(0-0.05)
Absolute Neuts (auto) 9.2 H 10^3/uL
(1.4-6.5)
Absolute Monos (auto) 1.0 H 10^3/uL
(0.1-0.6)
Immature Gran % 0.7 H %
(0-0.5)
Neutrophils % 77.7 H %
(42.2-75.2)
Lymphocytes % 12.4 L %
(20.5-51.1)
Sodium 132 L mmol/L
(135-145)
Potassium 3.3 L mmol/L
(3.5-5.1)
Total Protein 6.0 L g/dl
(6.3-8.2)
01/13/25 18:56
01/13/25 18:56
Vital Signs
Initial and Last Documented VS:
Initial Vital Signs
Temp Pulse Resp BP Pulse Ox
98.4 F 92 16 115/60 97
01/13/25 18:37 01/13/25 18:37 01/13/25 18:37 01/13/25 18:37 01/13/25 18:37
Last Documented Vital Signs
Temp Pulse Resp BP Pulse Ox
98.4 F 59 16 115/60 95
01/13/25 18:37 01/13/25 20:30 01/13/25 20:30 01/13/25 18:37 01/13/25 22:40
*Pulse Oximetry
SaO2: 95
Oxygen Mode of Delivery: Room air
Patient hypoxic: no
*Technical Services Consultant Interpretation
Rate: normal
Interpretation: abnormal
Rhythm: a-fib
*Critical Care Note
Total Time (30-74mins, 75-104mins- exclusive of procedures): Not Applicable
ED Attending Note
-
Portions of this chart may have been created with voice recognition software.� Occasional wrong word or��sound alike� substitutions may have occurred due to the inherent limitations of voice recognition software.
Discharge Plan
Departure
Patient Disposition: Admit
Date of Disposition: 01/13/25
Time of Disposition: 22:39
Admit to: Telemetry
Presentation/result/management discussed w/ accepting MD/DO: Hospitalist
Discharge Problem:
Mild congestive heart failure, Bronchitis, Paroxysmal atrial fibrillation, Hypokalemia, Left bundle branch block
Prescriptions:
No Action
atorvastatin 10 mg Tablet
10 mg PO HS
amlodipine 5 mg Tablet
5 mg PO DAILY
omeprazole 40 mg Capsule,Delayed Release(Dr/Ec)
40 mg PO DAILY
montelukast [Singulair] 10 mg Tablet
10 mg PO DAILY
amiodarone 100 mg Tablet
100 mg PO DAILY
amitriptyline 10 mg tablet
10 mg PO HS
losartan 50 mg Tablet
50 mg PO BID Qty: 60 0RF
furosemide 20 mg Tablet
60 mg PO BID AT 0800,1600 30 Days Qty: 180 0RF
aspirin,buffd-calcium carb-mag [Bufferin] 325 mg Tablet
325 - 650 mg PO BID PRN (Reason: mild pain)
levofloxacin 750 mg tablet
750 mg PO DAILY
Patient Comments:
01/13/2025, filled on 01/12/2025 and instructed to take 1 tablet daily for 7 days. Started first dose yesterday (01/12/2025).
loratadine 10 mg Tablet
10 mg PO DAILY
ipratropium bromide 0.02 % Solution
2.5 ml INHALATION R BID
Xarelto 15 mg tablet
15 mg PO HS
Referrals:
Bridget Quintanilla MD [Family Provider, Family Practice]
Interventions
Interventions:
*ED- Fall Risk Assessment Last Done: 01/13/25 18:37
*ED COVID-19 Vaccine History Last Done: 01/13/25 18:37
Discharge Date and Time
Print Language: LUXEMBOURGISH
--- NOTE | 2025-01-13 23:00 | W.PN.UPDATE ---
Update Note
Progress Note Update
This note serves as an addendum to the H&P by patient care representative OSMANY Hetal ALVARENGA
HPI
84F HX CHF, A Fib, S/P AoVR , Aortic aneurysm repair, requiring chr OAC with recent hospitalization sen at ER:
- worsening cough and sputum production over the past few days.
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
- No fever
- report Legs swelling
- dyspnea on exertion and difficulty breathing when walking
- stated on levofloxacin yesterday for bronchitis but has noted deterioration since.
Reviewed VS:
Vital Signs
Temp Pulse Resp BP Pulse Ox
98.4 F 59 16 115/60 95
01/13/25 18:37 01/13/25 20:30 01/13/25 20:30 01/13/25 18:37 01/13/25 22:40
12/31/24
06:00 01/07/25
18:18 01/13/25
18:24
Actual Weight 62.709 kg 63.8 kg 64.2 kg
PE
Gen: NAD, not toxic
HEENT:
Neck:
Lungs: Coarse BS . No wheeze
Cor: RRR S1 S2
MS: b/l Baljinder edema
Labs
01/13/25
18:56
WBC 11.8 H
Hgb 11.1 L
Sodium 132 L
Potassium 3.3 L
Creatinine 0.7
eGFR > 60.00
Troponin I 0.024
[id number] Pept 1970
CXR
1. No radiographic evidence for acute pulmonary edema, pneumonia, or pleural effusion.
2. Mild ground-glass opacity and increased interstitial markings in the lower lungs which is probably a mild amount of subsegmental atelectasis and scarring which appears unchanged.
3. Nodular opacities in the right middle lobe measuring up to 1.7 cm in size which could be chronically impacted airways or lung cancer (unchanged in appearance).
4. Mild cardiomegaly.
5. Previous ascending thoracic aortic graft placement.
12/28/24 TTE
- Normal left ventricular size and systolic function.
- No regional wall motion abnormalities are seen.
- LV ejection fraction is 55-60% by Lee's method of discs.
- Mild concentric left ventricular hypertrophy.
- Abnormal (paradoxical) septal motion consistent with left bundle branch block
- Moderate, eccentric aortic regurgitation.
- Mild to moderate tricuspid regurgitation.
- Estimated pulmonary artery pressure of 35 mmHg, Moderate pulmonic regurgitation.
11/10/24 Dobutamine nuclear stress test
- Perfusion imaging was normal with no definitive evidence of ischemia or prior infarct, EF 57% without WMA
Last hospitalist admission: 12/27/24 - 12/31/24
ASSESSMENT & PLAN
SOB and lessening LE edema with minimal wt gain over last few days s/p IV Lasix 40 x 1 at ER
Clinically patient is not far off from her baseline Cardiac and chr Resp status
Cough with productive colored sputum but NEG CXR for PNA
COPD HX - No wheezing
Hx of pulmonary nodule
- cont bronchodilators
- Hold off Steroids
- await Card eval to r/o acute HF
HX HFpEF- any acute element causing SoB
- PO Lasix 60 mg BID
- daily I/Os, weights, lytes
- DCA card consult
Paroxysmal A Fib
known LBBB and also h/o type 1 second degree AV block
- on amiodarone restarted for recurrent arrhythmia
- Chronic Xarelto OAC
Pulmonary nodule
Ground glass nodule in the RML increased in size
- initial bronchoscopy brushings suspicious for malignancy although final report was negative there was a suspicion of squamous metaplasia
- outpatient evaluation by radiation oncology pending
Normocytic Anemia
- add on anemia workup
- follow CBC
HLD
ASCVD
- statin
Essential HTN
- continue CCB/ARB
DVT Px: chr Xarelto
DNR
IP TLM
--- NOTE | 2025-01-13 23:00 | HPS.HSE ---
Family Physician
-
Family Physician: Bridget Quintanilla MD
Chief Complaint
-
cough, sob
History of Present Illness
84-year-old female with a history of congestive heart failure, COPD, hyperlipidemia, hypertension, A-fib presenting with a worsening cough and sputum production over the past one weeks. 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 denied MORALES, dizzy or syncope.denied fever, chills, chest pain. denied abdominal pain,n,v,d. denied worsening of LE edema. she was started on levaquin yesterday with no significant improvement.
Patient received Lasix, potassium in ER. Admitting for further management
Medical History
Past Medical History
Past Medical History: Reports Other
Additional Past Medical History:
Hypertension, hyperlipidemia, anxiety, pulmonary nodule, COPD, GERD, CHF, A-fib
Past Surgical History: Reports None
Social History
Tobacco: Former Smoker
Alcohol: None
Drug: None
Living: With Family
Family History
Family History: Not pertinent
Allergies / Home Medications
Allergies reflects when Allergies were last updated in [employer].
Home Medications with original date entered in [employer]
Allergy/Medication List:
Allergies
Allergy/AdvReac Type Severity Reaction Status Date / Time
adhesive Allergy Rash Verified 01/07/25 17:45
albuterol Allergy felt like Verified 01/07/25 17:45
she was
going to
pass out.
mometasone furoate Allergy couldn't Verified 01/07/25 17:45
breathe
Home Medications
amiodarone 100 mg tablet 100 mg PO DAILY AFIB 11/23/24
amitriptyline 10 mg tablet 10 mg PO HS Mental Health/Anxiety 11/23/24
amlodipine 5 mg tablet 5 mg PO DAILY Blood Pressure 11/23/24
atorvastatin 10 mg tablet 10 mg PO HS High Cholesterol 11/23/24
montelukast 10 mg tablet (Singulair) 10 mg PO DAILY ASTHMA 11/23/24
omeprazole 40 mg capsule,delayed release 40 mg PO DAILY GERD 11/23/24
furosemide 20 mg tablet 60 mg (3 x 20 mg) PO BID AT 0800,1600 30 days #180 tabs 12/31/24
losartan 50 mg tablet 50 mg PO BID #60 tabs 12/31/24
aspirin,buffered (calcium carbonate-magnesium) 325 mg tablet (Bufferin) 325 - 650 mg PO BID PRN mild pain 01/13/25
ipratropium bromide 0.02 % solution for inhalation 2.5 ml inhalation R BID 01/13/25
levofloxacin 750 mg tablet 750 mg PO DAILY 01/13/25
loratadine 10 mg tablet 10 mg PO DAILY 01/13/25
rivaroxaban 15 mg tablet (Xarelto) 15 mg PO HS 01/13/25
Review of Systems
-
Constitutional: Reports No Symptoms
EENT: Reports No Symptoms
Respiratory: Reports Cough
Cardiac: Reports No Symptoms
Abdomen/GI: Reports No Symptoms
: Reports No Symptoms
Musculoskeletal: Reports No Symptoms
Skin: Reports No Symptoms
Neurological: Reports No Symptoms
Endocrine: Reports No Symptoms
Hematologic/Lymphatic: Reports No Symptoms
Psych: Reports No Symptoms
Physical Exam
Vital Signs
Vital Signs
Temp Pulse Resp BP Pulse Ox
98.4 F 59 16 115/60 95
01/13/25 18:37 01/13/25 20:30 01/13/25 20:30 01/13/25 18:37 01/13/25 22:40
Physical Exam
General: Well Developed, Well Nourished and No Apparent Distress
HEENT: NormoCephalic, Moist mucous membranes and Atraumatic
Respiratory: Clear
Cardiac: S1/S2 and Regular Rhythm; No Murmur or Rub
GI: Soft, Non Tender, Non Distended and Normal Bowel Sounds; No Organomegaly
Rectal: Deferred by Provider
Musculoskeletal: No Clubbing, No Cyanosis and No Edema
Skin: No Rash
Neuro: AO x 3 and Nonfocal/grossly intact
Psych: Calm
Laboratory Results
-
01/13/25 18:56
01/13/25 18:56
Laboratory Results
Total Bilirubin 0.5 mg/dl (0.2-1.3) 01/13/25 18:56
AST 17 U/L (14-36) 01/13/25 18:56
ALT 15 U/L (0-35) 01/13/25 18:56
Alkaline Phosphatase 71 U/L (38-126) 01/13/25 18:56
Troponin I 0.024 ng/ml 01/13/25 18:56
Data Reviewed
-
Diagnostic Radiology: Report Reviewed by me
Lab Data: Labs Reviewed by me
Impression/Plan
-
# Short of breath possible CHF exacerbation
#possible acute bronchitis
- WBC 11.8
- BNP 1970
- Chest x-ray with no evidence of pulmonary edema, pneumonia or pleural effusion.Mild ground-glass opacity and increased interstitial markings in the lower lungs which is probably a mild amount of subsegmental atelectasis and scarring which appears
unchanged.Nodular opacities in the right middle lobe measuring up to 1.7 cm in size which could be chronically impacted airways or lung cancer (unchanged in appearance). Mild cardiomegaly.
- Received a dose of Lasix in the ER
- Continue home diuretic
- Strict PRASANNA, daily weight
-Mucinex added for cough
- Cardiology consulted
# Anemia of chronic disease
- Hemoglobin stable at 11.1
- Not actively bleeding
- Continue to monitor
# Hyponatremia/hypokalemia likely from diuretic
- Sodium 133, K3.3
-Oral KCl
- BMP in a.m.
#known LBBB and also h/o type 1 second degree AV block
Paroxysmal atrial fibrillation
- Amiodarone continued
-Aspirin continued
- continue Xarelto
- continue tele monitoring
#COPD, not in exacerbation
Hx of pulmonary nodule
- Singular current
#HLD
- statin
#Essential HTN
- continue Norvasc, losartan
# GERD
- PPI continued
# Anxiety
- Amitriptyline continued
DVT ppx: Xarelto
Code: DNR/DNI
[2025-01-13] MEDS: KCL ELIXIR 40 MEQ PO (23:13)
[2025-01-13] MEDS: LASIX 20 MG IV (23:13)
[2025-01-13] MEDS: FLUSH (NSS) 1 FLUSH IV (23:19)
[2025-01-14] VITALS (8 sets, daily range): BP systolic 107–162; BP diastolic 39–101; BMI 27.6; BMI 27.1
[2025-01-14 00:02] LABS: COVID-19 Antigen Negative (Negative)
--- NOTE | 2025-01-14 02:05 | PTCARENOTE ---
Pt received from ED via stretcher at 0200. Pt AAOx3, VSS, and able to ambulate into room with assistance. Pt presents with harsh, dry cough. Pt absent of pain at this time. Pt receptive to room and call hernandez. Pt bed in lowest position and call hernandez
within reach. Pt educated on importance of call hernandez usage, pt relays understanding and cooperation. Will continue with current plan of care.
[2025-01-14] MEDS: MUCINEX 600 MG PO ×2 (03:44→21:56)
[2025-01-14] MEDS: ATROVENT NEBULES 0.5 MG INH ×2 (07:20→20:15)
[2025-01-14] MEDS: CLARITIN 10 MG PO (07:24)
[2025-01-14] MEDS: PROTONIX 40 MG PO (07:24)
[2025-01-14] MEDS: SINGULAIR 10 MG PO (07:24)
[2025-01-14] MEDS: PACERONE 100 MG PO (07:24)
[2025-01-14] MEDS: COZAAR 50 MG PO ×2 (07:24→19:43)
[2025-01-14] MEDS: LASIX 60 MG PO ×2 (07:24→15:52)
[2025-01-14] MEDS: NORVASC 5 MG PO (07:25)
[2025-01-14 08:34] LABS: Hematocrit 30.2 % (37.0-47.0); Hemoglobin 10.5 g/dL (12.0-16.0); Mean Corp Hgb Conc. 34.8 g/dL (33.0-37.0); Mean Corpuscular Hgb 32.8 pg (27.0-31.0); Mean Corpuscular Volume 94.4 fL (81.0-99.0); Platelet Count 222 10^3/uL (130-400); Red Cell Dist. Width 12.1 % (11.5-14.5); White Blood Cell Count 9.9 10^3/uL (4.8-10.8)
[2025-01-14 08:57] LABS: Blood Urea Nitrogen 9 mg/dl (7-17); Carbon Dioxide 27 mmol/L (22-30); Chloride 104 mmol/L (98-107); Estimated Creatinine Clearance 58 ml/min; Glucose 88 mg/dl (70-99); HDL Cholesterol 51 mg/dl; LDL Cholesterol, Calculated 64 mg/dl; Magnesium 2.2 mg/dl (1.6-2.3); Potassium 3.6 mmol/L (3.5-5.1); Sodium 134 mmol/L (135-145); Total Cholesterol 127 mg/dl (50-199); Triglyceride 64 mg/dl (10-149); Very Low Density Lipoprotein 12 mg/dl (0-30); eGFR > 60.00
--- NOTE | 2025-01-14 09:09 | CON.CAR ---
Addendum entered and electronically signed by Ant Brizuela MD 01/14/25 11:31:
Patient seen and examined
Agree with ROOFER METAL note assessment
Agree with ROOFER METAL plan
����Physical Exam
���������������������General:��no apparent distress, not acutely ill
���������������������������Neck:��supple. no meningeal signs. normal psoterior pharynx
������������������������
���������������������������Heart:��s1/s2 regular rate and rhythm, no murmur. equal radial pulses.
��������������������������Lungs: ��no acute respiratory distress. clear bilaterally
����������������������Abdomen:�normal bowel sounds. not tender. no CVAT
��������������������������Neuro:��alert and oriented. no focal neurological deficits
������������������������������Skin: ��no rash
�����������������������Psychiatric:�well kept. interactive and cooperative
�����������������������Extremities:��no edema. no calf tenderness. negative homans. good distal pulse
PCP: Dr. Quintanilla
Card: Dr. Lola Rosa
Impression:
presents 01/13/2025 w/ worsening cough and sputum production
previous admit 12/27/2024 with acute HFpEF -Lasix dose uptitrated
Mobitz type I second-degree AV block
HFpEF
Right worse than left LE ecchymosis and edema
COPD
Pulmonary nodule
Groundglass nodule in the RML increased in size with initial bronchoscopy brushings suspicious for malignancy although final report was negative there was a suspicion of squamous metaplasia, outpatient evaluation by radiation oncology
pendingParoxysmal typical atrial flutter
Paroxysmal atrial fibrillation
s/p aneurysm repair
previously on amiodarone stopped due to GI issues in 06/2018 but later restarted for recurrent arrhythmiaChronic Xarelto OAC
Thoracic aortic aneurysm s/p repair by Dr. King at [facility] 05/2018
HTN
HLD
chronic LBBB
coronary artery calcification by chest CT, but nonobstructive CAD by cath 03/2018
COPD
ECHO 11/2017: EF 60%, mild MAC, mild MR, mild AI, mild TR, PAP 30-35mmHg, dilated ascending aorta 4.5cm
ECHO 08/04/2018: EF 60-65%, mild MR, aortic sclerosis, mild to mod TR, PAP 31-35mmHg, mild to mod WA, stable aortic root repair
Echo 12/14/2024: EF 55 to 60%, mild concentric LVH, moderate eccentric aortic regurgitation, mild to moderate TR, moderate pulmonic regurgitation
Dobutamine nuclear stress test 11/10/2024: Perfusion imaging was normal with no definitive evidence of ischemia or prior infarct, EF 57% without WMA
Plan:
Patient came to [facility] ER last night with increased SOB,cough, sputum production over the past week, no improvement after being started on Levaquin, nebulizer, and steroid in previous week [facility]. Also with mild increase in lower extremity edema. ED
workup: proBNP 1970 (was 1470 at time of previous admit 12/27/2024) CXR without evidence acute pulmonary edema, pneumonia, pleural effusion. Patient weight is stable with wt at time of recent discharge on 12/31/2024 for acute heart failure
exacerbation, at which time outpt Lasix was doubled to 60 mg bid.
Twelve-lead EKG: Normal sinus rhythm with Mobitz 1 type II AV block
HFpEF-
-does not appear volume overloaded on exam and chest x-ray without pulmonary edema
-Would continue usual outpatient dose of diuretic which is Lasix 60 mg twice daily
-Continue usual GDMT meds including losartan 50 mg bid. Not on BB due to occ Mobitz type 2 AVB (asymptomatic). Not candidate for SGLT2 due to UTIs. Could consider spironolactone in outpatient setting.
Mobitz 1 AVB
- Noted intermittently on telemetry during last admission and on telemetry this admission. Stable
-Patient is not on beta-marvel or calcium channel marvel but is on amiodarone for history of paroxysmal atrial fibrillation.
-She denies dizziness, lightheadedness, syncope
-Continue to monitor. Patient may need to be considered for pacemaker in the future but no current indication.
History of atrial fibrillation:
- Continue Xarelto for oral anticoagulation
- Continue low-dose amiodarone
- No A-fib noted on telemetry
With regards to her bronchitis which was her reason for admission was deferred to primary team for treatment. She has outpatient follow-up arranged with Dr. Lola Rosa on March 08 which would be appropriate timing from my perspective for
cardiovascular follow-up. I also communicated with Dr. Davila letting her know that the patient was in hospital for bronchitis to make her aware in case she wanted to move up that outpatient appointment. We will sign off please call back with
further questions
Original Note:
Consultation
Consultation Request
Date/Time Consultation Requested: 01/14/2025
Date/Time Consultation Performed: 01/14/2025 0900
Requesting Provider: ANDRESSA Moreno
Performing Provider: ANDRESSA Mazariegos for Dr Brizuela
Reason for Consultation: SOB
Medical History
-
Chief Complaint: SOB
History of Present Illness:
Patient came to [facility] ER last night with increased SOB, worsening cough and sputum production over the past week, cough particularly worse last night and felt poorly. 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
started on levaquin 01/12 with no significant improvement. Was seen in ED 01/07/2025 with cough and SOB-treated with nebulizer and steroid. Reports mild increase in lower extremity edema, no worsening shortness of breath.
Previous admission to 12/27-12/31/2024 for acute heart failure exacerbation. Discharge wt 138 lbs and creat 0.7. Outpt lasix dose uptitrated to 60 mg twice daily. Home wts were initially stable at 136 lbs and pt seen in cardiology office
01/04/2025 and was stable.
ED workup: proBNP 1970 (was 1470 at time of previous admit 12/27/2024)
Chest x-ray: No evidence acute pulmonary edema, pneumonia, pleural effusion
Twelve-lead EKG: Normal sinus rhythm with Mobitz 1 type II AV block
BUN/creatinine 9/0.6, NA 134, K3.6, mag 2.2,
troponin 0.024,
LDL 64, HDL 51, total cholesterol 127, triglycerides 64
In ED received Lasix 20 mg IV and potassium repleted. Cardiology consulted for evaluation of possible heart failure exacerbation
PMH:
COPD
Pulmonary nodule
Groundglass nodule in the RML increased in size with initial bronchoscopy brushings suspicious for malignancy although final report was negative there was a suspicion of squamous metaplasia, outpatient evaluation by radiation oncology pending
Paroxysmal typical atrial flutter
Paroxysmal atrial fibrillation
s/p aneurysm repair
previously on amiodarone stopped due to GI issues in 06/2018 but later restarted for recurrent arrhythmia
Chronic Xarelto OAC
Thoracic aortic aneurysm s/p repair by Dr. King at [facility] 05/2018
HTN
HLD
chronic LBBB
coronary artery calcification by chest CT, but nonobstructive CAD by cath 03/2018
COPD
Bradycardia with intermittant Mobitz type 1 AVB
Past Medical History
Past Medical History: Other (in HPI)
Past Surgical History: Gynecological ([id number]), Orthopedic and Tonsilectomy
Social History
Tobacco: Former Smoker
Alcohol: Occasional (Once a month or last)
Drug: None
Personal:
Living: Alone
Family History
Family History: CAD (Also CHF), Cancer and Hypertension
Allergies / Home Medications
Allergy/AdvReac Type Severity Reaction Status Date / Time
adhesive Allergy Rash Verified 01/07/25 17:45
albuterol Allergy felt like Verified 01/07/25 17:45
she was
going to
pass out.
mometasone furoate Allergy couldn't Verified 01/07/25 17:45
breathe
�Medication �Instructions �Recorded �Confirmed �Type
amiodarone 100 mg tablet 100 mg PO DAILY AFIB 11/23/24 01/13/25 History
amitriptyline 10 mg tablet 10 mg PO HS Mental Health/Anxiety 11/23/24 01/13/25 History
amlodipine 5 mg tablet 5 mg PO DAILY Blood Pressure 11/23/24 01/13/25 History
atorvastatin 10 mg tablet 10 mg PO HS High Cholesterol 11/23/24 01/13/25 History
montelukast 10 mg tablet 10 mg PO DAILY ASTHMA 11/23/24 01/13/25 History
(Singulair)
omeprazole 40 mg capsule,delayed 40 mg PO DAILY GERD 11/23/24 01/13/25 History
release
furosemide 20 mg tablet 60 mg (3 x 20 mg) PO BID AT 12/31/24 01/13/25 Rx
0800,1600 30 days #180 tabs
losartan 50 mg tablet 50 mg PO BID #60 tabs 12/31/24 01/13/25 Rx
aspirin,buffered (calcium 325 - 650 mg PO BID PRN mild pain 01/13/25 01/13/25 History
carbonate-magnesium) 325 mg tablet
(Bufferin)
ipratropium bromide 0.02 % 2.5 ml inhalation R BID 01/13/25 01/13/25 History
solution for inhalation
levofloxacin 750 mg tablet 750 mg PO DAILY 01/13/25 01/13/25 History
loratadine 10 mg tablet 10 mg PO DAILY 01/13/25 01/13/25 History
rivaroxaban 15 mg tablet (Xarelto) 15 mg PO HS 01/13/25 01/13/25 History
Review of Systems
-
History Source: Patient
Constitutional: No Symptoms
Physical Exam
Vital Signs
Temp Pulse Resp BP Pulse Ox
98.6 F 70 16 128/101 95
01/14/25 07:52 01/14/25 07:52 01/14/25 07:52 01/14/25 07:52 01/14/25 07:52
Lab Results
01/14/25 07:03
01/14/25 07:03
Troponin I 0.024 ng/ml 01/13/25 18:56
Ipz-M-Tlurhxkiqwl Pept 1970 pg/ml 01/13/25 18:56
GEN: No distress, awake, Ox3
HEENT: supple, anicteric, mmm
LUNGS: Few rales at bases
CV: Reg, S1/S2, 08/01 syst LSB, no murmur
ABD: soft, BS+, NT/ND
EXT: Trace bilateral lower extremity edema
NEURO: Gross non-focal
SKIN: No rash
Impression / Plan
-
PCP: Dr. Quintanilla
Card: Dr. Lola Rosa
Impression:
presents 01/13/2025 w/ worsening cough and sputum production
previous admit 12/27/2024 with acute HFpEF -Lasix dose uptitrated
Mobitz type I second-degree AV block
HFpEF
Right worse than left LE ecchymosis and edema
COPD
Pulmonary nodule
Groundglass nodule in the RML increased in size with initial bronchoscopy brushings suspicious for malignancy although final report was negative there was a suspicion of squamous metaplasia, outpatient evaluation by radiation oncology pending
Paroxysmal typical atrial flutter
Paroxysmal atrial fibrillation
s/p aneurysm repair
previously on amiodarone stopped due to GI issues in 06/2018 but later restarted for recurrent arrhythmia
Chronic Xarelto OAC
Thoracic aortic aneurysm s/p repair by Dr. King at [facility] 05/2018
HTN
HLD
chronic LBBB
coronary artery calcification by chest CT, but nonobstructive CAD by cath 03/2018
COPD
ECHO 11/2017: EF 60%, mild MAC, mild MR, mild AI, mild TR, PAP 30-35mmHg, dilated ascending aorta 4.5cm
ECHO 08/04/2018: EF 60-65%, mild MR, aortic sclerosis, mild to mod TR, PAP 31-35mmHg, mild to mod WA, stable aortic root repair
Echo 12/14/2024: EF 55 to 60%, mild concentric LVH, moderate eccentric aortic regurgitation, mild to moderate TR, moderate pulmonic regurgitation
Dobutamine nuclear stress test 11/10/2024: Perfusion imaging was normal with no definitive evidence of ischemia or prior infarct, EF 57% without WMA
Plan:
Patient came to [facility] ER last night with increased SOB,cough, sputum production over the past week, no improvement after being started on Levaquin, nebulizer, and steroid in previous week [facility]. Also with mild increase in lower extremity edema. ED
workup: proBNP 1970 (was 1470 at time of previous admit 12/27/2024) CXR without evidence acute pulmonary edema, pneumonia, pleural effusion. Patient weight is stable with wt at time of recent discharge on 12/31/2024 for acute heart failure
exacerbation, at which time outpt Lasix was doubled to 60 mg bid.
Twelve-lead EKG: Normal sinus rhythm with Mobitz 1 type II AV block
HFpEF-
-does not appear significantly volume overloaded on exam and chest x-ray without pulmonary edema
-Would continue usual outpatient dose of diuretic which is Lasix 60 mg twice daily
-Continue usual GDMT meds including losartan 50 mg bid. Not on BB due to occ Mobitz type 2 AVB (asymptomatic). Not candidate for SGLT2 due to UTIs. Could consider spironolactone in outpatient setting.
Mobitz 1 AVB
- Noted intermittently on telemetry during last admission and on telemetry this admission.
-Patient is not on beta-marvel or calcium channel marvel but is on amiodarone for history of paroxysmal atrial fibrillation.
-She denies dizziness, lightheadedness, syncope
-Continue to monitor. Patient may need to be considered for pacemaker in the future but no current indication.
History of atrial fibrillation:
- Continue Xarelto for oral anticoagulation
- Continue low-dose amiodarone
- No A-fib noted on telemetry
Data Reviewed
-
EKG: Tracing Personally Visualized and interpreted
Labs: Labs Reviewed by me
[2025-01-14 09:32] LABS: TSH Reflex To Free T4 0.59 uIU/ml (0.47-4.68)
--- NOTE | 2025-01-14 09:38 | CM ---
Initial assessment completed. Patient is a 84-year-old female with a history of congestive heart failure, COPD, hyperlipidemia, hypertension, A-fib presenting with a worsening cough and sputum production over the past one week.
Patient resides alone at [facility] living, 3rd floor apartment, elevator access. Independent w/ ambulating, no device needed. Independent w/ ADLs. Shower chair and grab bar in the bathroom. She receives meals at the facility, and no
assistance with medications. No SNF , [facility] in the past, current w/ [facility] at home.
Address, point of contact and insurance verified
PCP: Bridget Quintanilla
Pharmacy: [facility]
Plan: Anticipate home, LARISSA w/ [facility]
Will need [facility] referral prior to d/c
--- NOTE | 2025-01-14 11:30 | W.PN.HOSP.TC ---
Today's Communication/Plan
-
Diuretics. Pulmonary eval
Assessment / Plan
Assessment / Plan
Physical exam:
General: Acutely ill
HEENT: Normocephalic, Atraumatic and Moist Mucous Membranes
Respiratory: Clear to Auscultation; Negative Wheezes, Rales. Some Rhonchi
Cardiac: Regular Rhythm and S1/S2
GI: Soft, Nontender and Nondistended
Musculoskeletal: No Clubbing, No Cyanosis and No Edema
Neuro: Awake, Alert and Oriented, no neurological deficit
Psych: Calm
A/P:
Acute on chronic HFpEF:
Continue diuretics
Continue current GDMT
Cardiology consult appreciated
Mobitz type I:
Not on AV manjeet agents
She is on amiodarone for paroxysmal A-fib
Cardiology consult
Continue bus monitor
Recent bronchitis ?pna:
Treated with steroids and antibiotics
Abnormal chest x-ray and needs follow-up images
Will request pulmonary consult for further evaluation [id number] with Dr. Ferris as outpatient
Paroxysmal atrial fibrillation:
On antiarrhythmic, amiodarone
On anticoagulation, Xarelto
Hypertension:
Usual meds
Hyperlipidemia:
Statin
DVT prophylaxis:
Xarelto
CODE STATUS:
DNR
Anticipated Discharge: 24 - 48 hours
Subjective/Interval History
-
Date of Service: January 14, 2025
Patient feels better overall but still having cough with some sputum production. No chest pain. Afebrile
Objective Data
-
Labs:
Laboratory Results
01/14/25
07:03
WBC 9.9
Hgb 10.5 L
Hct 30.2 L
Plt Count 222
Sodium 134 L
Potassium 3.6
Chloride 104
Carbon Dioxide 27
BUN 9
Creatinine 0.6
Glucose 88
Calcium 9.0
Vital Signs:
Vital Signs
Temp Pulse Resp BP Pulse Ox
98.5 F 64 18 129/39 96
01/14/25 11:29 01/14/25 11:29 01/14/25 11:29 01/14/25 11:29 01/14/25 11:29
I&O
01/13/25 01/14/25 01/15/25
06:59 06:59 06:59
Intake Total 0 / 0
Output Total 400 / 400
Balance -400 / -400
--- NOTE | 2025-01-14 15:25 | CON.PUL ---
Consultation
Consultation Request
Date/Time Consultation Requested: 01/14/2025
Date/Time Consultation Performed: 01/15/2025
Requesting Provider: Pablo Sellers
Performing Provider: Moiz Saenz
Reason for Consultation: Cough, shortness of breath
Medical History
-
Chief Complaint: Cough
History of Present Illness:
Patient is a very pleasant 84-year-old female with known history of congestive heart failure, COPD, hyperlipidemia, hypertension, A-fib who presents to the hospital with worsening cough shortness of breath wheezing and sputum production for about a
week. Patient reportedly has been having recurrent bouts of bronchitis symptoms and was recently evaluated in the emergency room about a week ago. She was discharged on Zithromax and steroid. Subsequently her antibiotics were changed to
levofloxacin, patient reports having had taken 2 doses of the medication and presented to the emergency room with worsening shortness of breath. Pulmonary consultation was requested for further input.
Patient reports that she is allergic to albuterol and she also reports that addition of budesonide nebulizer made her symptoms worse so she has been taking only ipratropium at baseline. Patient also has a PET positive known history of right upper
lobe nodularity and recently had a bronchoscopy as well as EBUS performed. Brushings were suggestive of atypical cells concerning for malignancy however formal biopsy has not been suggestive of any malignancy. She follows up with Dr. Ferris and
current discussions are ongoing regarding consideration for possible empiric radiotherapy due to high pretest probability of underlying malignancy.
Past Medical History
Past Medical History: Reports Other
Additional Past Medical History:
Hypertension, hyperlipidemia, anxiety, pulmonary nodule, COPD, GERD, CHF, A-fib
Past Surgical History: Reports None
Social History
Tobacco: Former Smoker
Alcohol: None
Drug: None
Living: With Family
Family History
Family History: Not pertinent
Allergies / Home Medications
Allergies reflects when Allergies were last updated in [email or web address].
Home Medications with original date entered in [email or web address]
Allergy/Medication List:
Allergies / Home Medications
Allergies
Allergy/AdvReac Type Severity Reaction Status Date / Time
adhesive Allergy Rash Verified 01/07/25 17:45
albuterol Allergy felt like Verified 01/07/25 17:45
she was
going to
pass out.
mometasone furoate Allergy couldn't Verified 01/07/25 17:45
breathe
Home Medications
�Medication �Instructions �Recorded �Confirmed �Last Taken �Type
amiodarone 100 mg tablet 100 mg PO DAILY AFIB 11/23/24 01/13/25 01/13/25 History
amitriptyline 10 mg tablet 10 mg PO HS Mental Health/Anxiety 11/23/24 01/13/25 01/12/25 History
amlodipine 5 mg tablet 5 mg PO DAILY Blood Pressure 11/23/24 01/13/25 01/13/25 History
atorvastatin 10 mg tablet 10 mg PO HS High Cholesterol 11/23/24 01/13/25 01/12/25 History
montelukast 10 mg tablet 10 mg PO DAILY ASTHMA 11/23/24 01/13/25 01/13/25 History
(Singulair)
omeprazole 40 mg capsule,delayed 40 mg PO DAILY GERD 11/23/24 01/13/25 01/13/25 History
release
furosemide 20 mg tablet 60 mg (3 x 20 mg) PO BID AT 12/31/24 01/13/25 01/13/25 Rx
0800,1600 30 days #180 tabs
losartan 50 mg tablet 50 mg PO BID #60 tabs 12/31/24 01/13/25 01/13/25 Rx
aspirin,buffered (calcium 325 - 650 mg PO BID PRN mild pain 01/13/25 01/13/25 01/11/25 History
carbonate-magnesium) 325 mg tablet
(Bufferin)
ipratropium bromide 0.02 % 2.5 ml inhalation R BID 01/13/25 01/13/25 01/13/25 History
solution for inhalation
levofloxacin 750 mg tablet 750 mg PO DAILY 01/13/25 01/13/25 01/13/25 History
loratadine 10 mg tablet 10 mg PO DAILY 01/13/25 01/13/25 01/13/25 History
rivaroxaban 15 mg tablet (Xarelto) 15 mg PO HS 01/13/25 01/13/25 01/12/25 History
Review of Systems
-
Hematologic/Lymphatic: Other (All 14 systems reviewed and negative except as stated above in the history of present illness.)
Vitals / Labs / Diagnostic Testing
Vital Signs
Temp Pulse Resp BP Pulse Ox
98.5 F 64 18 129/39 96
01/14/25 11:29 01/14/25 11:29 01/14/25 11:29 01/14/25 11:29 01/14/25 11:29
Lab Data
01/14/25 07:03
01/14/25 07:03
Microbiology
01/14/25 10:52 Sputum Gram Stain - Preliminary
01/13/25 23:17 Nasal Swab Influenza Types A & B (MICHAEL) - Final
Negative for Influenza A & B, NAAT
Negative results must be combined with clinical observations
and patient history.
Nucleic Acid Amplification test (NAAT)performed on the
[employer] platform.
Diagnostic Testing:
Physical Exam
-
HEENT: Normocephalic
Cardiovascular: S1/S2
Respiratory: Rhonchi (Bilateral )
GI: Soft and Non Distended
Neurology: Awake and Alert
Skin: Warm
Assessment
-
#1. Acute purulent bronchitis with COPD exacerbation
- Pseudomonas noted on sputum cultures
- In view of known nodularity in right middle lobe, persistent symptoms of cough, wheezing, will aim for 2 weeks of antimicrobial therapy
- Started ciprofloxacin 500 mg p.o. twice daily x 2 weeks. Monitor QTc in a.m. this is the first time sputum Pseudomonas was detected, will aim to eradicate.
- Switched ipratropium to 4 times daily. Patient unable to tolerate albuterol or budesonide
- Started prednisone 40 mg daily for 5 days for hyperactive airway disease
- Patient not smoking currently
- Follow-up EKG had increased prolonged QTc, potassium was noted to be low, replaced with 40 mEq p.o. KCl. Patient has baseline bundle branch block as well as first-degree heart block making it difficult to a certain exact QTc. Will repeat EKG in
a.m.
#2. Right upper lobe pulmonary nodularity
- Continues to be concerning for malignancy, atypical cells noted on bronchoscopy however otherwise biopsy results are negative
- With history of smoking, upper lobe location, but activity and atypical cells, high pretest probability of underlying malignancy
- Options regarding possible radiations are being discussed with Dr. Ferris as outpatient
- Patient will continue outpatient follow-up at [facility] for ongoing management
Other medical diagnoses:
- Heart failure with preserved ejection fraction
- Known history of left bundle branch block
- Paroxysmal atrial fibrillation on anticoagulation and amiodarone
- Hypertension, hyperlipidemia
- Normocytic anemia
Total time spent on this consultation/encounter __75__ minutes which includes review of history, physical exam, medications, laboratory data, personal review of imaging, extensive review of outpatient records, discussion with care team and
respiratory therapy.
Data:
ECHO 12/2024: Normal left ventricular size and systolic function. No regional wall motion
abnormalities are seen. LV ejection fraction is 55-60% by volumetric
assessment. Mild concentric left ventricular hypertrophy.
Enlarged right ventricular chamber size. Normal right ventricular function.
Moderate aortic regurgitation.
Mild to moderate tricuspid regurgitation. Estimated pulmonary artery pressure
of 30 mmHg assuming a right atrial pressure of 3 mmHg.
CXR 12/2024:
1. No radiographic evidence for acute pulmonary edema, pneumonia, or pleural effusion.
2. Mild ground-glass opacity and increased interstitial markings in the lower lungs which is probably a mild amount of subsegmental atelectasis and scarring which appears unchanged.
3. Nodular opacities in the right middle lobe measuring up to 1.7 cm in size which could be chronically impacted airways or lung cancer (unchanged in appearance).
4. Mild cardiomegaly.
5. Previous ascending thoracic aortic graft placement.
CT Chest 10/2024: 1. Approximately 8 mm solid nodule within the previously seen area of abnormal groundglass opacity, highly suspicious for pulmonary malignancy.
2. Additional subcentimeter nodules/focal opacities as above, none with significant interval increase in size.
3. Emphysema.
4. Post repair of thoracic aortic dissection as seen on previous examination.
5. Probable asymmetric glandular tissue of the breasts, without significant change from prior. Recommend correlation with mammography.
6. Cholelithiasis.
[2025-01-14] MEDS: DELTASONE 40 MG PO (15:51)
[2025-01-14] MEDS: ATROVENT NEBULES INH (17:54)
[2025-01-14] MEDS: CIPRO 500 MG PO (19:43)
[2025-01-14] MEDS: XARELTO 15 MG PO (21:47)
[2025-01-14] MEDS: LIPITOR 10 MG PO (21:47)
[2025-01-14] MEDS: ELAVIL 10 MG PO (21:47)
[2025-01-15 02:55] VITALS: BP 124/50
[2025-01-15 06:00] VITALS: BMI 27.0
[2025-01-15 06:25] LABS: % Immature Granulocytes 0.8 % (0-0.5); % Lymphocytes 8.3 % (20.5-51.1); % Monocytes 6.2 % (1.7-9.3); % Neutrophils 84.7 % (42.2-75.2); Absolute Immature Granulocytes 0.1 10^3/uL (0-0.05); Absolute Lymphocytes 0.6 10^3/uL (1.2-3.4); Absolute Monocytes 0.5 10^3/uL (0.1-0.6); Absolute Neutrophils 6.1 10^3/uL (1.4-6.5); Hematocrit 31.5 % (37.0-47.0); Hemoglobin 10.7 g/dL (12.0-16.0); Mean Corpuscular Hgb 31.8 pg (27.0-31.0); Mean Corpuscular Volume 93.8 fL (81.0-99.0); Mean Platelet Volume 9.4 fL (7.4-10.4); Nucleated Red Blood Cells % 0 %; Platelet Count 216 10^3/uL (130-400); Red Blood Cell Count 3.36 10^6/uL (4.20-5.40); White Blood Cell Count 7.2 10^3/uL (4.8-10.8)
[2025-01-15 06:56] LABS: Blood Urea Nitrogen 12 mg/dl (7-17); Carbon Dioxide 24 mmol/L (22-30); Chloride 104 mmol/L (98-107); Estimated Creatinine Clearance 49 ml/min; Glucose 133 mg/dl (70-99); Potassium 3.9 mmol/L (3.5-5.1); Sodium 133 mmol/L (135-145); eGFR > 60.00
[2025-01-15] MEDS: ATROVENT NEBULES 0.5 MG INH ×4 (07:26→20:11)
[2025-01-15] MEDS: MUCINEX 600 MG PO ×2 (07:30→20:04)
[2025-01-15] MEDS: NORVASC 5 MG PO (07:30)
[2025-01-15] MEDS: DELTASONE 40 MG PO (07:30)
[2025-01-15] MEDS: LASIX 60 MG PO ×2 (07:31→15:05)
[2025-01-15] MEDS: CLARITIN 10 MG PO (07:31)
[2025-01-15] MEDS: SINGULAIR 10 MG PO (07:31)
[2025-01-15] MEDS: CIPRO 500 MG PO ×2 (07:31→20:03)
[2025-01-15] MEDS: COZAAR 50 MG PO ×2 (07:31→20:04)
[2025-01-15] MEDS: PACERONE 100 MG PO (07:31)
[2025-01-15] MEDS: PROTONIX 40 MG PO (07:31)
[2025-01-15 08:59] VITALS: BP 144/56
[2025-01-15 11:20] VITALS: BP 116/50
--- NOTE | 2025-01-15 11:36 | W.PN.HOSP.TC ---
Today's Communication/Plan
-
Antibiotics. Diuretics
Assessment / Plan
Assessment / Plan
Physical exam:
General: Acutely ill
HEENT: Normocephalic, Atraumatic and Moist Mucous Membranes
Respiratory: Clear to Auscultation; Negative Wheezes, Rales. Some Rhonchi
Cardiac: Regular Rhythm and S1/S2
GI: Soft, Nontender and Nondistended
Musculoskeletal: No Clubbing, No Cyanosis and No Edema
Neuro: Awake, Alert and Oriented, no neurological deficit
Psych: Calm
A/P:
Acute bronchitis/pneumonia:
Sputum growing Pseudomonas from 01/10
Pulmonary consult appreciated
Had multiple rounds of steroids and antibiotics prior but not targeting Pseudomonas
Follow-up with Dr. Ferris as outpatient
Started on oral Cipro
Also started on oral prednisone by pulmonary
Discussed about discharge plan but patient wants to wait until pulmonary reevaluation (discussed with pulmonary)-discharge planning once cleared by pulmonary
Acute on chronic HFpEF:
Continue diuretics
Continue current GDMT
Cardiology consult appreciated
Mobitz type I:
Not on AV manjeet agents
She is on amiodarone for paroxysmal A-fib
Cardiology consult
Continue cafeteria monitor
Paroxysmal atrial fibrillation:
On antiarrhythmic, amiodarone
On anticoagulation, Xarelto
Hypertension:
Usual meds
Hyperlipidemia:
Statin
DVT prophylaxis:
Xarelto
CODE STATUS:
DNR
Time spent 35 minutes
Anticipated Discharge: Within 24 hours
Subjective/Interval History
-
Date of Service: January 15, 2025
Patient feels better today, less shortness of breath and less cough. Afebrile
Objective Data
-
Labs:
Laboratory Results
01/15/25
05:54
WBC 7.2
Hgb 10.7 L
Hct 31.5 L
Plt Count 216
Sodium 133 L
Potassium 3.9
Chloride 104
Carbon Dioxide 24
BUN 12
Creatinine 0.7
Glucose 133 H
Calcium 9.0
Vital Signs:
Vital Signs
Temp Pulse Resp BP Pulse Ox
98 F 78 18 116/50 94
01/15/25 11:20 01/15/25 11:23 01/15/25 11:23 01/15/25 11:20 01/15/25 11:23
I&O
01/14/25 01/15/25 01/16/25
06:59 06:59 06:59
Intake Total 0 / 0 830 / 830
Output Total 400 / 400
Balance -400 / -400 830 / 830
[2025-01-15] MEDS: KCL 40 MEQ PO (12:07)
[2025-01-15 15:17] VITALS: BP 113/51
[2025-01-15 19:33] VITALS: BP 127/43
[2025-01-15] MEDS: ELAVIL 10 MG PO (20:07)
[2025-01-15] MEDS: LIPITOR 10 MG PO (20:07)
[2025-01-15] MEDS: XARELTO 15 MG PO (20:07)
[2025-01-15 23:02] VITALS: BP 128/46
[2025-01-16 03:21] VITALS: BP 135/46
[2025-01-16 04:36] VITALS: BMI 27.0
[2025-01-16] MEDS: ATROVENT NEBULES 0.5 MG INH ×3 (07:44→15:01)
[2025-01-16 07:46] VITALS: BP 127/42
[2025-01-16 07:52] LABS: Blood Urea Nitrogen 13 mg/dl (7-17); Calcium 9.2 mg/dl (8.4-10.2); Carbon Dioxide 23 mmol/L (22-30); Chloride 106 mmol/L (98-107); Estimated Creatinine Clearance 58 ml/min; Glucose 85 mg/dl (70-99); Magnesium 2.2 mg/dl (1.6-2.3); Potassium 3.8 mmol/L (3.5-5.1); Sodium 133 mmol/L (135-145); eGFR > 60.00
[2025-01-16] MEDS: COZAAR 50 MG PO (08:06)
[2025-01-16] MEDS: CIPRO 500 MG PO (08:06)
[2025-01-16] MEDS: MUCINEX 600 MG PO (08:06)
[2025-01-16] MEDS: DELTASONE 40 MG PO (08:06)
[2025-01-16] MEDS: LASIX 60 MG PO (08:06)
[2025-01-16] MEDS: CLARITIN 10 MG PO (08:07)
[2025-01-16] MEDS: PACERONE 100 MG PO (08:07)
[2025-01-16] MEDS: SINGULAIR 10 MG PO (08:07)
[2025-01-16] MEDS: NORVASC 5 MG PO (08:07)
[2025-01-16] MEDS: PROTONIX 40 MG PO (08:07)
[2025-01-16 11:05] VITALS: BP 126/40
--- NOTE | 2025-01-16 12:30 | W.PN.HOSP.TC ---
Addendum entered and electronically signed by Yomi Noriega MD 01/18/25 18:26:
No evidence of pneumonia
Addendum entered and electronically signed by Yomi Noriega MD 01/16/25 14:05:
Discussed with pulmonary who now recommends steroid taper which is prescribed. Stable from the standpoint for discharge as well.
Total time of discharge 35 minutes
Addendum entered and electronically signed by Yomi Noriega MD 01/16/25 14:04:
Discussed with Dr. Dean Malhotra on-call director agency & strategic partnerships who reviewed the rhythm strips and EKG and okayed for discharge and follow-up with cardiology as outpatient as planned before.
Original Note:
Today's Communication/Plan
-
Cardiology to review today's EKG and rhythm strip
DC plan
Assessment / Plan
Assessment / Plan
A/P:
Acute purulent bronchitis
Sputum growing Pseudomonas from 01/10
Chest x-ray without any obvious new airspace disease
Pulmonary consult appreciated
Had multiple rounds of steroids and antibiotics prior but not targeting Pseudomonas
Follow-up with Dr. Ferris as outpatient
Started on oral Cipro-continue
Also started on oral prednisone by pulmonary
Clinically improved.
DC home and follow with pulmonary. She has a pulmonary nodule which needs to be followed.
Acute on chronic HFpEF:
Continue diuretics
Weight is 138 pounds which is her baseline
Continue current GDMT
Cardiology consult appreciated
Mobitz type I:
Not on AV manjeet agents
She is on amiodarone for paroxysmal A-fib
Cardiology input noted -recommends outpatient follow-up
Today's EKG is read as A-fib with left bundle branch block but I am concerned if there is any type II AV block. There was also couple of pauses noted on the today's rhythm. Will ask director agency & strategic partnerships to review.
Continue health informatics advisor
Paroxysmal atrial fibrillation:
On antiarrhythmic, amiodarone
On anticoagulation, Xarelto
Hypertension:
Usual meds
Hyperlipidemia:
Statin
DVT prophylaxis:
Xarelto
CODE STATUS:
DNR
DC home if no further cardiology monitoring or workup needed
Anticipated Discharge: Today
Subjective/Interval History
-
Date of Service: January 16, 2025
Cough has become dry. No further sputum production.
Denies any shortness of breath at rest.
No wheeze.
No chest pain.
No nausea vomiting.
No fever or chills.
Denies any dizziness.
Objective Data
-
Labs:
Laboratory Results
01/16/25
06:43
Sodium 133 L
Potassium 3.8
Chloride 106
Carbon Dioxide 23
BUN 13
Creatinine 0.6
Glucose 85
Calcium 9.2
Vital Signs:
Vital Signs
Temp Pulse Resp BP Pulse Ox
98.6 F 71 18 126/40 94
01/16/25 11:05 01/16/25 11:32 01/16/25 11:32 01/16/25 11:05 01/16/25 11:32
I&O
01/15/25 01/16/25 01/17/25
06:59 06:59 06:59
Intake Total 830 / 830 480 / 480
Balance 830 / 830 480 / 480
Physical Exam
-
Respiratory: Clear to Auscultation, Wheezes and Non Labored Respirations; Negative Accessory Resp Muscle Use
Cardiac: Regular Rhythm and S1/S2
Neuro: AO x 3
Psych: Calm
Data Reviewed
-
Labs: Labs Reviewed by me
--- NOTE | 2025-01-16 13:08 | PN.CDI ---
CDI
- -
CDI:
Physician Documentation Request
Admit Date: 01/14/25 00:05
Dear Doctor Hari,
Please review the following and provide your response in the progress notes.
Clinical Indicators:
The diagnosis of pneumonia was documented on 01/15 PN but is not consistently noted in subsequent documentation.
- 01/15 PN 'Acute bronchitis/pneumonia'
- 'Started on oral Cipro'
- 01/16 PN 'Acute purulent bronchitis...Chest x-ray without any obvious new airspace disease'
Please clarify the following:
____ - Pneumonia was present on admission and is still being monitored, evaluated or treated
____ - Pneumonia was ruled out
____ - Pneumonia is still a likely, suspected, probable diagnosis
____ - Other
Use of terms such as suspected, likely, concern for, or probable (associated with a specific diagnosis that is being evaluated, monitored, or treated as if it exists) are acceptable and can be coded in the inpatient setting, when documented at the
time of discharge.
Thank you,
Caitlyn Tabares RN
CDI Specialist
Please use your independent medical judgment in providing your response.
[2025-01-16 13:11] VITALS: BP 134/54; BP 92/50; PULSE 84; O2SAT 96
--- NOTE | 2025-01-16 13:51 | W.PN.PUL3 ---
Today's Communication / Plan
-
- Continue ciprofloxacin for another 6 days to complete 10 days of antipseudomonal therapy
- Continue ipratropium nebulized 4 times a day
- Prednisone 40 mg for 3 days followed by 30 mg for 3 days followed by 20 mg for 3 days followed by 10 mg for 3 days
- Outpatient follow-up with pulmonary clinic
- Pulmonary team will sign off, please call as needed
Assessment
-
#1. Acute purulent bronchitis with COPD exacerbation
- Pseudomonas noted on sputum cultures
- In view of known nodularity in right middle lobe, persistent symptoms of cough, wheezing, antipseudomonal treatment with ciprofloxacin was started. Patient was prescribed levofloxacin as outpatient, it was switched to Cipro due to lower risk of
QTc prolongation.
- Follow-up EKG this morning shows a QTc interval less than 500, will continue ciprofloxacin for another 6 days to complete a total 10 days of antipseudomonal therapy
- Patient reports that her expectoration is clear now and she is overall feeling better
- Recommend prednisone tapering
- Patient not smoking currently
- Stable for discharge from pulmonary standpoint
#2. Right upper lobe pulmonary nodularity
- Continues to be concerning for malignancy, atypical cells noted on bronchoscopy however otherwise biopsy results are negative
- With history of smoking, upper lobe location, but activity and atypical cells, high pretest probability of underlying malignancy
- Options regarding possible radiations are being discussed with Dr. Ferris as outpatient
- Patient will continue outpatient follow-up at [facility] for ongoing management
Other medical diagnoses:
- Heart failure with preserved ejection fraction
- Known history of left bundle branch block
- Paroxysmal atrial fibrillation on anticoagulation and amiodarone
- Hypertension, hyperlipidemia
- Normocytic anemia
Total time spent on this consultation/encounter __45__ minutes which includes review of history, physical exam, medications, laboratory data, personal review of imaging, extensive review of outpatient records, discussion with care team and
respiratory therapy.
Data:
ECHO 12/2024: Normal left ventricular size and systolic function. No regional wall motion
abnormalities are seen. LV ejection fraction is 55-60% by volumetric
assessment. Mild concentric left ventricular hypertrophy.
Enlarged right ventricular chamber size. Normal right ventricular function.
Moderate aortic regurgitation.
Mild to moderate tricuspid regurgitation. Estimated pulmonary artery pressure
of 30 mmHg assuming a right atrial pressure of 3 mmHg.
CXR 12/2024:
1. No radiographic evidence for acute pulmonary edema, pneumonia, or pleural effusion.
2. Mild ground-glass opacity and increased interstitial markings in the lower lungs which is probably a mild amount of subsegmental atelectasis and scarring which appears unchanged.
3. Nodular opacities in the right middle lobe measuring up to 1.7 cm in size which could be chronically impacted airways or lung cancer (unchanged in appearance).
4. Mild cardiomegaly.
5. Previous ascending thoracic aortic graft placement.
CT Chest 10/2024: 1. Approximately 8 mm solid nodule within the previously seen area of abnormal groundglass opacity, highly suspicious for pulmonary malignancy.
2. Additional subcentimeter nodules/focal opacities as above, none with significant interval increase in size.
3. Emphysema.
4. Post repair of thoracic aortic dissection as seen on previous examination.
5. Probable asymmetric glandular tissue of the breasts, without significant change from prior. Recommend correlation with mammography.
6. Cholelithiasis.
Subjective Data
-
Date of Service:
Date of Service: January 16, 2025
Subjective:
Patient comfortably sitting in bed, no acute distress.
Review of Systems
Genitourinary: Other (All 14 systems reviewed and negative except as stated above in the history of present illness.)
Objective Data
Data Reviewed
Vital Signs / I&O / Oxygen:
Vital Signs
Temp Pulse Resp BP Pulse Ox
98.6 F 71 18 126/40 94
01/16/25 11:05 01/16/25 11:32 01/16/25 11:32 01/16/25 11:05 01/16/25 11:32
Intake and Output
01/15/25 01/16/25 01/17/25
06:59 06:59 06:59
Intake Total 830 / 830 480 / 480
Balance 830 / 830 480 / 480
SaO2 94
Physical Exam
General: Comfortable
HEENT: Normocephalic
Cardiovascular: S1-S2
Respiratory: Clear
GI: Soft and Non Distended
Neurology: Awake and Alert
Skin: Warm
Labs/Micro/Reports
Lab Data
01/15/25 05:54
01/16/25 06:43
Microbiology
01/14/25 10:52 Sputum Respiratory Culture - Preliminary
Mold
01/14/25 10:52 Sputum Gram Stain - Preliminary
01/14/25 02:44 Nose MRSA Screen - Final
No Methicillin Resistant Staphylococcus aureus isolated.
01/13/25 23:17 Nasal Swab Influenza Types A & B (MICHAEL) - Final
Negative for Influenza A & B, NAAT
Negative results must be combined with clinical observations
and patient history.
Nucleic Acid Amplification test (NAAT)performed on the
[employer] platform.
--- NOTE | 2025-01-16 14:07 | W.DCSUMMARY ---
Discharge Summary
Discharge Data
Date of Admission: 01/14/25
Date of Discharge: 01/16/25
-
Pending Results: No
Hospital Course
Primary diagnosis:
Acute purulent bronchitis with Pseudomonas aeruginosa in the sputum
Acute COPD exacerbation
Mobitz type I AV block
Secondary diagnosis:
Paroxysmal atrial fibrillation
Hypertension
Hyperlipidemia
Hospital course:
Patient presented with cough and productive phlegm which was purulent and noted to have Pseudomonas aeruginosa in the sputum. She had associated active bronchospasm suggestive of COPD exacerbation. She had a chest x-ray which showed no new
airspace disease. She has known right upper lobe nodularity for which she is following a pulmonary as outpatient.
She was seen by pulmonary here and was put on ciprofloxacin and steroids with resolution of sputum production but was left with cough. She was not short of breath or hypoxic. When she was stable she was discharged home with a steroid taper and to
finish 6 more days of ciprofloxacin. QTc was okay.
She is known to have heart failure with preserved EF and that was compensated during the stay here. She had again a Mobitz type I AV block which was noted on previous admission as well. Cardiology recommended no interventions at the current time
and to continue with her amiodarone follow-up as an outpatient. She has paroxysmal A-fib on amiodarone and Xarelto.
Consultants on board:
Cardiology-Ant Luo
Pulmonary-Bashir Duncan
Discharge Plan
-
Patient Disposition: Home (Routine Discharge)
Discharge Diagnosis/Procedures: Acute purulent bronchitis with Pseudomonas in sputum culture/acute exacerbation of COPD; Mobitz type I AV block
Diet: No added salt
Activity: As tolerated
Driving Restrictions: As prior to admission
Bathing Restrictions: None
Referrals:
Sanford Ferris MD [Active, Pulmonary Medicine] - in two to four weeks
Bridget Quintanilla MD [Family Provider, Family Practice] - in less than 1 week
Lola Rosa MD [Active, Cardiology] - in two to three weeks
Prescriptions:
New
ciprofloxacin HCl 500 mg Tablet
500 mg PO BID Qty: 12 0RF
prednisone 10 mg tablet
10 mg PO DIRECTED Qty: 40 0RF
Rx Instructions:
40mg daily for 4 days and then taper by 10mg every fourth day till tablets are done.
guaifenesin 600 mg Tablet Extended Release 12hr
600 mg PO Q12 Qty: 14 0RF
benzonatate 100 mg Capsule
100 mg PO TIDPRN PRN (Reason: cough) Qty: 14 0RF
Continued
atorvastatin 10 mg Tablet
10 mg PO HS
amlodipine 5 mg Tablet
5 mg PO DAILY
omeprazole 40 mg Capsule,Delayed Release(Dr/Ec)
40 mg PO DAILY
montelukast [Singulair] 10 mg Tablet
10 mg PO DAILY
amiodarone 100 mg Tablet
100 mg PO DAILY
amitriptyline 10 mg tablet
10 mg PO HS
losartan 50 mg Tablet
50 mg PO BID Qty: 60 0RF
furosemide 20 mg Tablet
60 mg PO BID AT 0800,1600 30 Days Qty: 180 0RF
aspirin,buffd-calcium carb-mag [Bufferin] 325 mg Tablet
325 - 650 mg PO BID PRN (Reason: mild pain)
loratadine 10 mg Tablet
10 mg PO DAILY
Xarelto 15 mg tablet
15 mg PO HS
Changed
ipratropium bromide 0.02 % Solution
2.5 ml INHALATION QID Qty: 0 0RF
Discontinued
levofloxacin 750 mg tablet
750 mg PO DAILY
Patient Comments:
01/13/2025, filled on 01/12/2025 and instructed to take 1 tablet daily for 7 days. Started first dose yesterday (01/12/2025).
Discharge Orders:
Discharge Patient (As Directed); Ordered 01/16/25
Ordered By: Yomi Noriega
Discharge Date and Time
Print Language: BENINESE
--- NOTE | 2025-01-16 14:37 | CM ---
CM reviewed chart, patient seen bedside, for discharge today. Patient confirms she is current with [facility], LARISSA referral placed for resumption of services. IMM reviewed verbally, provided with copy, placed in chart. Patient confirms transportation
home from sister. CM will continue to follow for all discharge planning needs.
Plan; return home with resumption of [facility]
[2025-01-16 15:00] VITALS: BP 114/40
== END 2025-01-16 16:23 | disposition home health service (06) | DRG 291 ==
LOC: 4 WEST ACU 00:05
PROVIDERS: Hospitalist; Registered Nurse; Student in an Organized Health Care Education/Training Program; ADMITTING PHYSICIAN Internal Medicine; ATTENDING PHYSICIAN Internal Medicine; CONSULT PHYSICIAN Internal Medicine; EMERGENCY PHYSICIAN Emergency Medicine; FAMILY PHYSICIAN Family Medicine; OTHER PHYSICIAN Internal Medicine Cardiovascular Disease
DX: I11.0 Hypertensive heart disease with heart failure (principal); I50.33 Acute on chronic diastolic (congestive) heart failure; J44.0 Chronic obstructive pulmonary disease with (acute) lower respiratory infection; J44.1 Chronic obstructive pulmonary disease with (acute) exacerbation; E87.1 Hypo-osmolality and hyponatremia; J98.11 Atelectasis; J20.9 Acute bronchitis, unspecified; I44.1 Atrioventricular block, second degree; B96.5 Pseudomonas (aeruginosa) (mallei) (pseudomallei) as the cause of diseases classified elsewhere; I48.0 Paroxysmal atrial fibrillation; E78.00 Pure hypercholesterolemia, unspecified; Z87.891 Personal history of nicotine dependence; F41.9 Anxiety disorder, unspecified; K21.9 Gastro-esophageal reflux disease without esophagitis; D63.8 Anemia in other chronic diseases classified elsewhere; E87.6 Hypokalemia; T50.2X5A Adverse effect of carbonic-anhydrase inhibitors, benzothiadiazides and other diuretics, initial encounter; Z79.01 Long term (current) use of anticoagulants; Z66 Do not resuscitate; I25.10 Atherosclerotic heart disease of native coronary artery without angina pectoris; I44.7 Left bundle-branch block, unspecified; Z79.899 Other long term (current) drug therapy; Z95.2 Presence of prosthetic heart valve; Z11.52 Encounter for screening for COVID-19
CPT/HCPCS: 71046; 80048; 80053; 80061; 83735; 83880; 84443; 84484; 85025; 85027; 87070; 87205; 87502; 87811; 93005; 94640; 96374; 97162; 99285

== ENCOUNTER → 2025-03-09 15:43 | Outpatient (REF) | payer MEDICARE, BC, SELFPAY | LOC: RAD 15:43 | PROVIDERS: ATTENDING PHYSICIAN Nurse Practitioner Acute Care; FAMILY PHYSICIAN Family Medicine | DX: Z98.890 Other specified postprocedural states (principal); Z86.79 Personal history of other diseases of the circulatory system; I71.00 Dissection of unspecified site of aorta; I77.810 Thoracic aortic ectasia; J43.8 Other emphysema | CPT/HCPCS: 71275; Q9967 ==

== ENCOUNTER → 2025-03-23 07:42 | Outpatient (REF) | payer MEDICARE, BC, SELFPAY ==
[2025-03-23 09:15] LABS: Hematocrit 31.7 % (37.0-47.0); Hemoglobin 10.6 g/dL (12.0-16.0); Mean Corp Hgb Conc. 33.4 g/dL (33.0-37.0); Mean Corpuscular Volume 92.2 fL (81.0-99.0); Nucleated Red Blood Cells % 0 %; Platelet Count 280 10^3/uL (130-400); Red Cell Dist. Width 13.6 % (11.5-14.5)
[2025-03-23 10:39] LABS: ALT (SGPT) 15 U/L (0-35); AST (SGOT) 22 U/L (14-36); Albumin 3.9 g/dl (3.5-5.0); Alkaline Phosphatase 80 U/L (38-126); Blood Urea Nitrogen 14 mg/dl (7-17); Calcium 9.7 mg/dl (8.4-10.2); Carbon Dioxide 24 mmol/L (22-30); Chloride 107 mmol/L (98-107); Glucose 85 mg/dl (70-99); HDL Cholesterol 62 mg/dl; LDL Cholesterol, Calculated 81 mg/dl; Magnesium 2.1 mg/dl (1.6-2.3); Potassium 3.9 mmol/L (3.5-5.1); Sodium 136 mmol/L (135-145); Total Protein 6.1 g/dl (6.3-8.2); Very Low Density Lipoprotein 13 mg/dl (0-30); eGFR > 60.00
[2025-03-23 11:23] LABS: Vitamin B12 670 pg/ml (239-931)
== END ==
LOC: REG 07:42
PROVIDERS: ATTENDING PHYSICIAN Internal Medicine Cardiovascular Disease; FAMILY PHYSICIAN Family Medicine
DX: I48.91 Unspecified atrial fibrillation (principal); R06.09 Other forms of dyspnea; E78.5 Hyperlipidemia, unspecified; R53.83 Other fatigue; I50.30 Unspecified diastolic (congestive) heart failure; D51.9 Vitamin B12 deficiency anemia, unspecified
CPT/HCPCS: 36415; 80053; 80061; 82607; 83735; 83880; 84443; 85025

== ENCOUNTER 2025-05-01 15:38 | Inpatient (IN) | payer MEDICARE, BC, SELFPAY ==
[2025-05-01] VITALS (7 sets, daily range): BP systolic 126–173; BP diastolic 34–65; BMI 29.5; BMI 27.8
[2025-05-01 11:34] LABS: Hematocrit 29.9 % (37.0-47.0); Hemoglobin 9.9 g/dL (12.0-16.0); Mean Corp Hgb Conc. 33.1 g/dL (33.0-37.0); Mean Corpuscular Volume 92.0 fL (81.0-99.0); Nucleated Red Blood Cells % 0 %; Platelet Count 215 10^3/uL (130-400); Red Cell Dist. Width 13.0 % (11.5-14.5)
[2025-05-01 11:45] LABS: ALT (SGPT) 13 U/L (0-35); AST (SGOT) 20 U/L (14-36); Albumin 3.7 g/dl (3.5-5.0); Alkaline Phosphatase 88 U/L (38-126); Blood Urea Nitrogen 12 mg/dl (7-17); Calcium 9.1 mg/dl (8.4-10.2); Carbon Dioxide 24 mmol/L (22-30); Chloride 107 mmol/L (98-107); Glucose 91 mg/dl (70-99); Potassium 3.6 mmol/L (3.5-5.1); Sodium 136 mmol/L (135-145); Total Protein 6.2 g/dl (6.3-8.2); eGFR > 60.00
[2025-05-01 11:55] LABS: Troponin I 0.015 ng/ml
--- NOTE | 2025-05-01 13:35 | ED.GENMED ---
History of Present Illness
General
Chief Complaint: Swelling
Source: patient
Exam Limitations: none
Time Seen by Provider: 05/01/25 13:25
History of Present Illness
History of Present Illness:
See MDM
Past History
Past History
ED Past Medical History: Arrthythmia, CHF, Hypercholesterolemia, Valvular disease () and Other (migraines)
ED Past Surgical History: Cardiac (ACR, Aortic aneurism repair May 2018 at [facility])
Social History
Tobacco: Non-smoker
Alcohol: None
Drug: None
Personal:
Living: with family
Employment: Retired
Family History
Family History: Other (Noncontributory)
Phy Exam
Physical Exam
Physical Exam:
See MDM
Scores
Heart Failure Risk
Heart Failure Risk Score: Yes
History of Stroke or TIA: No
History of intubation for respiratory distress: No
Heart rate on ED arrival >/= 110: No
SaO2 <90% on arrival on room air: No
HR >/=110 during 3min walk test (or too ill to perform test): Yes
ECG has acute ischemic changes: No
Urea >/=12mmol/L (BUN 33.6mg/dL): No
Serum CO2>/=35mmol/L: No
Troponin I or T elevated to [place] Level (0.4mg/dL): No
NT-proBNP >/=5,000ng/L (5,000pg/ml): No
HF Risk Score: 2
Admission Status: MEDIUM RISK 9.2% Consider observation or discharge to home with homecare & f/u visit to PCP/Policy Analyst, or SNF for treatment
Course
Orders/Labs/Results
Orders:
Orders
05/01/25 11:05
Electrocardiogram (*1) Urgent
Reason for Study: Shortness of Breath
EKG- Treatment ONCE
05/01/25 11:14
Complete Blood Count/With Diff Urgent
Comprehensive Metabolic Panel Urgent
Pro-BNP [NT-proBNP] Urgent
Troponin I Urgent
05/01/25 13:34
Furosemide [Lasix] 60 mg IV NOW STA
CR Chest - 2 Views Urgent
Comment:
Reason For Exam: SOB
05/01/25 15:10
Admit/Transfer Patient As Directed
Co-Sign Provider:
Level of Care: Inpatient admission
Assign to:: Telemetry
Physician / Group: Lexus Larry
Diagnosis: acute on chronic HFpEF
Reason for Telemetry: Acute Heart Failure
Date to Stop Telemetry: 05/04/25
Time to Stop Telemetry: 11:00
Reason for Hospitalization: acute on chronic HFpEF
Expected length of stay greater than two midnights?: Yes
ELOS- Estimated Length of Stay in days: 3
I certify the patient meets the requirements for IP care: Yes
PRN Pain Medication Management As Directed
May give lesser potent ordered pain med per pt: Yes
preference::
Protocol:: Medication orders for pain may be administered in a
manner that supports deferring to patient preference
when the pt is:
- Requesting an ordered lesser potent pain medication.
Least to most potent pain medications are defined
as: acetaminophen < NSAID < tramadol < opioids
(morphine, oxycodone, hydromorphone).
- Requesting a lesser dose of the same medication IF
ORDERED.
- Requesting a less intrusive route of administration
if both routes are prescribed by the provider (PO <
IV).
05/01/25 15:12
Code Status As Directed
Resuscitation Status: Do not resuscitate
Reached after discussion with pt or family/Healthcare POA: Yes
Decision communicated with: patient
DNR Bracelet Application ONCE
05/04/25 11:00
DC Protocol for Telemetry ONCE
Abnormal Lab Results
05/01/25
11:14
RBC 3.25 L 10^6/uL
(4.20-5.40)
Hgb 9.9 L g/dL
(12.0-16.0)
Hct 29.9 L %
(37.0-47.0)
Absolute Lymphs (auto) 0.9 L 10^3/uL
(1.2-3.4)
Lymphocytes % 15.6 L %
(20.5-51.1)
Monocytes % 9.5 H %
(1.7-9.3)
Total Protein 6.2 L g/dl
(6.3-8.2)
05/01/25 11:14
05/01/25 11:14
Vital Signs
Initial and Last Documented VS:
Initial Vital Signs
Temp Pulse Resp BP Pulse Ox
98.1 F 67 18 142/47 96
05/01/25 11:00 05/01/25 11:00 05/01/25 11:00 05/01/25 11:00 05/01/25 11:00
Last Documented Vital Signs
Temp Pulse Resp BP Pulse Ox
98.1 F 56 18 160/34 96
05/01/25 11:00 05/01/25 16:00 05/01/25 16:00 05/01/25 14:00 05/01/25 15:00
MDM/Problems Addressed
Differential Diagnosis Includes:
Note:
CHIEF COMPLAINT(S)
Swelling of the legs
HISTORY OF PRESENT ILLNESS
The patient is an 84-year-old female with a known history of congestive heart failure who presents with significant leg swelling, suspected to be due to exacerbation of her heart failure. The patient stated, 'my legs have been acting up really bad,'
indicating noticeable swelling which reduces when elevated on pillows overnight but worsens upon ambulation in the morning. The patient has been managing the swelling with increased doses of furosemide (Lasix), currently taking 60 mg in the morning
and 40 mg at night. Despite this regimen, the patient reported minimal urine output, leading to little relief from the swelling and 'dribbling a little bit' rather than productive urination.
Additionally, the patient has a persistent 'nasty, nasty cough' which raised concern for possible pneumonia or other respiratory issues. The cough was severe enough to cause prolonged coughing spells. The patient uses a nebulizer as prescribed for
mild COPD. She also reported a history of radiation therapy to the right lung, potentially affecting her lung function and adding to the respiratory difficulties.
Patient recently had a round of radiation to her right lung for a suspicious nodule.
PAST MEDICAL AND SURIGICAL HISTORY
- Congestive Heart Failure
- Chronic Obstructive Pulmonary Disease (COPD)
- Radiation therapy to the right lung
- Aortic repair in 2018 for a leaking aorta
CHRONIC MEDICAL CONDITIONS SIGNIFICANTLY AFFECTING CARE
- Congestive Heart Failure
- Chronic Obstructive Pulmonary Disease
PHYSICAL EXAM
General: Alert, no acute distress.
Skin: Warm, dry.
Head: Normocephalic, atraumatic
Neck: Appears supple, trachea midline.
Eyes, Ears, Nose, Mouth, and Throat: Oral mucosa moist.
Cardiovascular: No signs of cyanosis
Respiratory: Respirations are non-labored. Prolonged expiratory phase. No significant wheezing noted
Abdomen: Non-distended
Musculoskeletal: +2 pitting edema bilateral lower extremities
Neurological: No focal neurological deficit observed.
Psychiatric: Cooperative, appropriate mood and affect.
PROBLEM LIST
Acute Problems:
- Exacerbation of congestive heart failure with peripheral edema
- Suspected lower respiratory infection or pneumonia
- Reduced lung function due to past right lung radiation
PLAN
1. Admission to the hospital for further management and observation.
2. Administration of intravenous furosemide to manage fluid overload and improve diuresis.
3. Obtain chest X-ray to evaluate for potential pneumonia or other underlying conditions.
4. Monitor renal function given the increased use of diuretics.
5. Evaluate for any contributing factors to the patients respiratory status, taking into account past radiation therapy and presence of COPD.
DIFFERENTIAL DIAGNOSIS
The Differential Diagnosis includes, in no particular order and is not limited to:
1. Congestive heart failure exacerbation
2. Pulmonary edema
3. Pneumonia
4. Chronic obstructive pulmonary disease exacerbation
5. Lymphedema
6. Medication-induced edema
7. Deep vein thrombosis
8. Nephrotic syndrome
9. Cirrhosis with ascites
10. Hypoalbuminemia due to malnutrition or renal loss
EKG
My independent EKG interpretation is:
- Rhythm: Sinus bradycardia
- Heart Rate: 56 beats per minute
- Notable Interval: Atrioventricular (A.V.) block observed
- Abnormalities: Left bundle branch block
- ST Segment: No ST elevation
SUMMARY OF ENCOUNTER
The 84-year-old female patient presented with significant leg swelling attributed to an exacerbation of her congestive heart failure (CHF). The patient had been managing her symptoms at home with increased doses of furosemide (Lasix), yet
experienced minimal relief with persistent swelling and minimal urine output. Additionally, she reported a severe cough. A chest X-ray showed vascular congestion consistent with heart failure exacerbation; no obvious pneumonia was visible, though a
spot in the right middle lobe was noted, potentially due to past radiation therapy. The plan is to admit the patient for intravenous furosemide administration to address fluid overload, which was ineffective when managed with oral medications at
home. The patient agrees with the proposed management strategy.
DISPOSITION
Admit to the hospital service for further management and observation.
ASSESSMENT
1. Exacerbation of congestive heart failure.
2. Possible pulmonary issues related to past radiation therapy.
EMERGENCY TREATMENTS ADMINISTERED
None explicitly mentioned.
PLAN
1. Admission to the hospital.
2. Administration of intravenous furosemide to manage fluid overload.
INDEPENDENT REVIEW OF LABS AND INTERPRETATION OF TESTS
- My independent chest x-ray interpretation is consistent with vascular congestion in the lungs; no definitive signs of pneumonia. A spot in the right middle lobe may be related to prior radiation therapy.
MEDICATION RECONCILIATION
1. Furosemide (Lasix), increased home dosage noted, to be administered intravenously upon admission.
MEDICAL DECISION MAKING
1. Number and Complexity of Problems Addressed:
Chronic conditions affecting care include congestive heart failure, chronic obstructive pulmonary disease (COPD), and history of radiation therapy.
Differential Diagnosis:
- Congestive heart failure exacerbation
- Pulmonary edema
- Pneumonia
- Chronic obstructive pulmonary disease exacerbation
- Radiation-related lung changes
2. Data:
Category 1:
- Chest x-ray reviewed and interpreted independently.
3. Risk:
- Prescription medication management with intravenous furosemide.
- Decision to escalate care with hospital admission for monitoring and treatment due to the failure of outpatient management.
DIAGNOSIS
1. Exacerbation of Congestive Heart Failure (ICD-10: I50.9)
*Pulse Oximetry
SaO2: 96
Oxygen Mode of Delivery: Room air
Patient hypoxic: no
*Critical Care Note
Total Time (30-74mins, 75-104mins- exclusive of procedures): 33 min
comment:
The high probability of a clinically significant, sudden or life threatening deterioration of the cardiovascular/pulmonary system(s) required my full and direct attention, intervention and personal management. The aggregate critical care time was 33
minutes. This time is in addition to time spent performing reported procedures but includes the following:
[x] Data Review and interpretation
[x] Patient assessment and monitoring of vital signs
[x] Documentation
[x] Medication orders and management
ED Attending Note
-
Portions of this chart may have been created with voice recognition software.� Occasional wrong word or��sound alike� substitutions may have occurred due to the inherent limitations of voice recognition software.
Discharge Plan
Departure
Patient Disposition: Admit
Date of Disposition: 05/01/25
Time of Disposition: 14:23
Admit to: Telemetry
Presentation/result/management discussed w/ accepting MD/DO: Hospitalist
Discharge Problem:
Acute exacerbation of CHF (congestive heart failure)
Interventions
Interventions:
*Risk Screen - Suicide Last Done: 05/01/25 11:00
*General Assessment Last Done: 05/01/25 11:00
*Neglect/Abuse Screening Last Done: 05/01/25 14:25
*ED- Fall Risk Assessment Last Done: 05/01/25 14:25
*ED COVID-19 Vaccine History Last Done: 05/01/25 14:25
*ED Influenza Vaccine History Last Done: 05/01/25 14:25
ED- Cardiac Assessment Last Done: 05/01/25 14:25
ED- Pulmonary Assessment Last Done: 05/01/25 14:25
ED-Skin Assessment Last Done: 05/01/25 14:25
[2025-05-01] MEDS: LASIX 60 MG IV (13:56)
--- NOTE | 2025-05-01 14:31 | HPS.HSE ---
Addendum entered and electronically signed by Lexus Larry MD 05/01/25 15:45:
This is an addendum to H&P written by Rosi Ramirez on 05/01/2025. �Patient seen and examined independently with TABLEAU ADMINISTRATOR.
84-year-old female past medical history of COPD, Mobitz type I AV block, paroxysmal atrial fibrillation, aortic aneurysm repair 2018, moderate aortic regurgitation, mild to moderate tricuspid regurgitation, hypertension, hyperlipidemia, acute
purulent bronchitis secondary to Pseudomonas presenting with increased lower extremity edema and exertional dyspnea, cough and 4 pound weight gain since yesterday.�
Vital signs show blood pressure up to 170s systolic.
Labs show hemoglobin of 9.9 which is stable. �Cardiac BNP of 3400. �Chest x-ray shows small patchy right basilar opacity which could represent right middle lobe subsegmental atelectasis and or pneumonia.
Patient with acute CHF exacerbation. �Lasix 60 BID, cardiology.
Original Note:
Family Physician
-
Family Physician: Bridget Quintanilla MD
Chief Complaint
-
exertional dyspnea and increased BLLE edema
History of Present Illness
Patient is a 84-year-old female with past medical history significant for hypertension, hyperlipidemia, paroxysmal atrial fibrillation, HFpEF, anxiety, pulmonary nodule, COPD and GERD who presented to [facility] ED for evaluation of exertional dyspnea and
increased BLLE edema. Patient reports that she has had increased edema over the last several weeks with Lasix adjustments by embedded engineer, Dr. Lola Rosa, she started on Lasix 20mg daily and has been increased several times and is now
currently at Lasix 60mg in morning and Lasix 40mg at night. Patient notes that she completed 4 rounds of radiation to suspicious lung nodule with, Dr. Terrazas, in March 2025. Additionally, she reports feeling like she is not peeing enough and
feels urine has had a foul odor. Denies any fever, chills, cough, chest pain, nausea, vomting or change in bowel habits.
Medical History
Past Medical History
Past Medical History: Reports Other
Additional Past Medical History:
hypertension
hyperlipidemia
paroxysmal atrial fibrillation
HFpEF
anxiety
pulmonary nodule
COPD
GERD
Past Surgical History: Reports Other
Additional Past Surgical History:
Hip replacement Left
Tonsillectomy
Cataract extraction
Breast biopsy - benign
Hysterectomy FREDDY/BSO 1980s
LPS- BTL
Ascending aorta dilation 05/2018
Laser surgery right leg 08/2019
Social History
Tobacco: Former Smoker (quit 2003 )
Alcohol: Occasional (rare at social event like wed )
Drug: None
Living: Alone (independent living at [facility] )
Family History
Family History: Not pertinent
Allergies / Home Medications
Allergies reflects when Allergies were last updated in [facility].
Home Medications with original date entered in [facility]
Allergy/Medication List:
Allergies
Allergy/AdvReac Type Severity Reaction Status Date / Time
adhesive Allergy Rash Verified 05/01/25 11:03
albuterol Allergy felt like Verified 05/01/25 11:03
she was
going to
pass out.
mometasone furoate Allergy couldn't Verified 05/01/25 11:03
breathe
Home Medications
amiodarone 100 mg tablet 100 mg PO DAILY AFIB 11/23/24
amitriptyline 10 mg tablet 10 mg PO HS Mental Health/Anxiety 11/23/24
amlodipine 5 mg tablet 5 mg PO DAILY Blood Pressure 11/23/24
montelukast 10 mg tablet (Singulair) 10 mg PO DAILY ASTHMA 11/23/24
omeprazole 40 mg capsule,delayed release 40 mg PO DAILY GERD 11/23/24
losartan 50 mg tablet 50 mg PO BID #60 tabs 12/31/24
aspirin,buffered (calcium carbonate-magnesium) 325 mg tablet (Bufferin) 325 mg PO BIDPRN PRN mild pain 01/13/25
loratadine 10 mg tablet 10 mg PO DAILY 01/13/25
aspirin 81 mg tablet,delayed release 81 mg PO BID 05/01/25
atorvastatin 20 mg tablet (Lipitor) 20 mg PO HS 05/01/25
furosemide 20 mg tablet 60 mg PO DAILY 05/01/25
furosemide 40 mg tablet (Lasix) 40 mg PO QPM 05/01/25
guaifenesin 600 mg tablet, extended release 12 hr 600 mg PO DAILY 05/01/25
ipratropium bromide 0.02 % solution for inhalation 2.5 ml inhalation R TID 05/01/25
Review of Systems
-
History Source: Patient
Constitutional: Reports Fatigue; Denies Fever or Chills
EENT: Denies Sore Throat
Respiratory: Reports Trouble Breathing (exertional dyspnea ); Denies Cough
Cardiac: Denies Chest Pain, Palpitations or Syncope
Abdomen/GI: Denies Abdominal Pain, Nausea, Vomiting or Diarrhea
: Reports Difficulty Voiding; Denies Dysuria, Frequency or Urgency
Musculoskeletal: Denies Joint Pain
Skin: Denies Rash
Neurological: Reports Weakness; Denies Dizzy, Headache or Numbness
Physical Exam
Vital Signs
Vital Signs
Temp Pulse Resp BP Pulse Ox
98.1 F 49 18 173/49 95
05/01/25 11:00 05/01/25 13:45 05/01/25 13:45 05/01/25 13:56 05/01/25 13:45
Physical Exam
General: Well Developed, Well Nourished, No Apparent Distress, Comfortable, Conversant and Obese
HEENT: NormoCephalic, Moist mucous membranes, PERRLA, Nose Appears Normal and Ears Appear Normal
Respiratory: Clear and Decreased Breath Sounds
Cardiac: S1/S2, Irregular Rhythm and Peripheral Edema (+3 pitting edema in BLLE ); No Murmur, Rub or Gallop
GI: Soft, Non Tender, Non Distended and Normal Bowel Sounds
Musculoskeletal: No Clubbing, No Cyanosis, Edema, Left Lower Extremity and Edema, Right Lower Extremity
Skin: Warm and Rash
Neuro: Awake and AO x 3
Hematologic/Lymphatic: No Lymphadenopathy
Psych: Calm and Intact Judgment/Insight
Laboratory Results
-
05/01/25 11:14
05/01/25 11:14
Laboratory Results
Total Bilirubin 0.7 mg/dl (0.2-1.3) 05/01/25 11:14
AST 20 U/L (14-36) 05/01/25 11:14
ALT 13 U/L (0-35) 05/01/25 11:14
Alkaline Phosphatase 88 U/L (38-126) 05/01/25 11:14
Troponin I 0.015 ng/ml 05/01/25 11:14
Data Reviewed
-
Diagnostic Radiology: Report Reviewed by me (CXR: Small patchy right basilar opacity which could represent right middle lobe subsegmental atelectasis and/for pneumonia.)
Medical Tests (Nuc Med, Echo, EKG etc): Report Reviewed by me (EKG: SINUS BRADYCARDIA WITH 2ND DEGREE A-V BLOCK (MOBITZ I) LEFT BUNDLE BRANCH BLOCK)
Lab Data: Labs Reviewed by me (hgb 9.9, hct 29.9, trop 0.015, pBNP 3390)
Impression/Plan
-
IMPRESSION/PLAN:
#acute on chronic HFpEF
hgb 9.9, hct 29.9, trop 0.015, pBNP 3390
CXR: Small patchy right basilar opacity which could represent right middle lobe subsegmental atelectasis and/for pneumonia.
EKG: SINUS BRADYCARDIA WITH 2ND DEGREE A-V BLOCK (MOBITZ I)
LEFT BUNDLE BRANCH BLOCK
ECHO (12/28/2024): Normal left ventricular size and systolic function. No regional wall motion abnormalities are seen. LV ejection fraction is 55-60% by volumetric assessment. Mild concentric left
ventricular hypertrophy.
Enlarged right ventricular chamber size. Normal right ventricular function.
Moderate aortic regurgitation.
Mild to moderate tricuspid regurgitation. Estimated pulmonary artery pressure of 30 mmHg assuming a right atrial pressure of 3 mmHg.
- Admit to telemetry
- Consult Cardiology
- Lasix 60mg IV
- bladder scan/straight cath
- daily weights
- I & Os
#hypertension
- continue amlodipine and losartan
#hyperlipidemia
- continue atorvastatin
#paroxysmal atrial fibrillation
- continue amiodarone
#anxiety
- continue amitriptyline
#COPD
- continue guaifenesin, ipratropium bromide, loratadine and montelukast
#GERD
- continue omeprazole
#pulmonary nodule
follows with
completed radiation fo suspicious nodule
Code status: DNR
DVT prophylaxis: lovenox sq
--- NOTE | 2025-05-01 14:41 | CON.CAR ---
Addendum entered and electronically signed by Mike Keyes MD 05/01/25 16:56:
I saw and examined the patient.
The QUILL COLLECTOR or PA's note was reviewed and I agree with the note.
Comment: General: Well developed, well nourished in NAD.
Neck: Supple, no JVD, HJR, carotids +2 B/L, no bruits bilaterally.
Heart: Non displaced PMI, RRR, no murmurs, No S3, S4, no rubs.
Lungs: Scattered rhonchi
Extremities: No clubbing, cyanosis or edema bilaterally.
Neuro: Grossly nonfocal, awake, alert and oriented x3.
Bhavani has a history of chronic diastolic CHF, COPD, A-flutter, A-fib not chronically anticoagulated due to thoracic aorta pseudoaneurysm and concern for possible leak status post repair at [facility] in 2018, hypertension. She presents with worsening
shortness of breath and CHF refractory to oral outpatient therapy.
Will admit treat for CHF. Discussed with family at bedside. Will assess after IV Lasix. Discussed with ER staff. ECG with Daquan and will follow for now.
Original Note:
Consultation
Consultation Request
Date/Time Consultation Requested: 05/01/2025
Date/Time Consultation Performed: 05/01/2025
Requesting Provider: Dr. Ibrahim in the ER
Performing Provider: Dr. Keyes
Reason for Consultation: Acute HF
Medical History
-
History of Present Illness:
Patient came to the ER today with increased LE edema and feeling poor in general and is being admitted with acute HFpEF and cardiology has been consulted. Patient had [id number] admissions in December for acute HF and then PNA. Patient was last seen
in the office on 03/08/2025 and was noted to have increased LE edema prompting increase in Lasix to 40 mg BID and due to ongoing LE edema the dose was increased to 60 mg a.m. and 40 mg p.m. just prior to admission. Patient states that she is taking
her Lasix dutifully, but has not noticed any improvement in her LE edema. Patient feels like she is not diuresing much with taking her Lasix dose, it feels generally ineffective to her. During previous admissions patient was eating a restaurant
heavy diet, but she says that is no longer the case and denies any excessive salt intake. Previous dry weight was 138 lbs and she currently weighs 150 lbs in the ER now.
PMH:
Recent admission 12/27/24 until 12/31/2024
Recent admission for acute purulent bronchitis with Pseudomonas, AE COPD and Wenckebach 01/14/2025 until 01/16/2025
Chronic HFpEF
COPD
Pulmonary nodule
Poorly defined RML nodule with increased uptake on PET/CT from 12/22/2024, appeared enlarged by most recent CT chest 03/09/2025 groundglass nodule in the RML increased in size with initial bronchoscopy brushings suspicious for malignancy although
final report was negative there was a suspicion of squamous metaplasia, outpatient evaluation by radiation oncology pending
Paroxysmal typical atrial flutter
Paroxysmal atrial fibrillation
s/p aneurysm repair
previously on amiodarone stopped due to GI issues in 06/2018 but later restarted for recurrent arrhythmia
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
Thoracic aortic aneurysm s/p repair by Dr. King at [facility] 05/2018
HTN
HLD
chronic LBBB
coronary artery calcification by chest CT, but nonobstructive CAD by cath 03/2018
COPD
Past Medical History
Past Medical History: Other (in HPI)
Past Surgical History: Gynecological ([id number]), Orthopedic and Tonsilectomy
Social History
Tobacco: Former Smoker
Alcohol: Occasional (Once a month or last)
Drug: None
Personal:
Living: Alone
Family History
Family History: CAD (Also CHF), Cancer and Hypertension
Allergies / Home Medications
Allergy/AdvReac Type Severity Reaction Status Date / Time
adhesive Allergy Rash Verified 05/01/25 11:03
albuterol Allergy felt like Verified 05/01/25 11:03
she was
going to
pass out.
mometasone furoate Allergy couldn't Verified 05/01/25 11:03
breathe
�Medication �Instructions �Recorded �Confirmed �Type
amiodarone 100 mg tablet 100 mg PO DAILY AFIB 11/23/24 05/01/25 History
amitriptyline 10 mg tablet 10 mg PO HS Mental Health/Anxiety 11/23/24 05/01/25 History
amlodipine 5 mg tablet 5 mg PO DAILY Blood Pressure 11/23/24 05/01/25 History
montelukast 10 mg tablet 10 mg PO DAILY ASTHMA 11/23/24 05/01/25 History
(Singulair)
omeprazole 40 mg capsule,delayed 40 mg PO DAILY GERD 11/23/24 05/01/25 History
release
losartan 50 mg tablet 50 mg PO BID #60 tabs 12/31/24 05/01/25 Rx
aspirin,buffered (calcium 325 mg PO BIDPRN PRN mild pain 01/13/25 05/01/25 History
carbonate-magnesium) 325 mg tablet
(Bufferin)
loratadine 10 mg tablet 10 mg PO DAILY 01/13/25 05/01/25 History
aspirin 81 mg tablet,delayed 81 mg PO BID 05/01/25 05/01/25 History
release
atorvastatin 20 mg tablet (Lipitor) 20 mg PO HS 05/01/25 05/01/25 History
furosemide 20 mg tablet 60 mg PO DAILY 05/01/25 05/01/25 History
furosemide 40 mg tablet (Lasix) 40 mg PO QPM 05/01/25 05/01/25 History
guaifenesin 600 mg tablet, 600 mg PO DAILY 05/01/25 05/01/25 History
extended release 12 hr
ipratropium bromide 0.02 % 2.5 ml inhalation R QIDPRN PRN sob 05/01/25 05/01/25 History
solution for inhalation
Review of Systems
-
History Source: Patient
All other systems: Negative unless noted
Physical Exam
Vital Signs
Temp Pulse Resp BP Pulse Ox
98.1 F 53 20 160/34 97
05/01/25 11:00 05/01/25 14:30 05/01/25 14:30 05/01/25 14:00 05/01/25 14:30
GEN: NAD. AAOx3
HEENT: EOMI, MMM
LUNGS: RA. Clear anterolaterally without wheeze or rales
CV: Sinus bradycardia on telemetry. Reg, S1/S2, 2/6 PSM
ABD: ND
EXT: +1-2 right worse than left LE edema.
NEURO: Gross non-focal
SKIN: No rash
Lab Results
05/01/25 11:14
05/01/25 11:14
Troponin I 0.015 ng/ml 05/01/25 11:14
Ldl-V-Znmnfximybt Pept 3390 pg/ml 05/01/25 11:14
Impression / Plan
-
PCP: Dr. Quintanilla
Card: Dr. Lola Rosa
Impression:
Admitted with acute HF 05/01/2025
Recent admission 12/27/24 until 12/31/2024
Recent admission for acute purulent bronchitis with Pseudomonas, AE COPD and Wenckebach 01/14/2025 until 01/16/2025
Acute HFpEF
COPD
Pulmonary nodule
Poorly defined RML nodule with increased uptake on PET/CT from 12/22/2024, appeared enlarged by most recent CT chest 03/09/2025 groundglass nodule in the RML increased in size with initial bronchoscopy brushings suspicious for malignancy although
final report was negative there was a suspicion of squamous metaplasia, outpatient evaluation by radiation oncology pending
Paroxysmal typical atrial flutter
Paroxysmal atrial fibrillation
s/p aneurysm repair
previously on amiodarone stopped due to GI issues in 06/2018 but later restarted for recurrent arrhythmia
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
Thoracic aortic aneurysm s/p repair by Dr. King at [facility] 05/2018
HTN
HLD
chronic LBBB
coronary artery calcification by chest CT, but nonobstructive CAD by cath 03/2018
COPD
ECHO 11/2017: EF 60%, mild MAC, mild MR, mild AI, mild TR, PAP 30-35mmHg, dilated ascending aorta 4.5cm
ECHO 08/04/2018: EF 60-65%, mild MR, aortic sclerosis, mild to mod TR, PAP 31-35mmHg, mild to mod LA, stable aortic root repair
Echo 12/14/2024: EF 55 to 60%, mild concentric LVH, moderate eccentric aortic regurgitation, mild to moderate TR, moderate pulmonic regurgitation
Dobutamine nuclear stress test 11/10/2024: Perfusion imaging was normal with no definitive evidence of ischemia or prior infarct, EF 57% without WMA
Plan:
-Patient came to the ER today with increased LE edema and feeling poor in general and is being admitted with acute HFpEF and cardiology has been consulted. Patient had [id number] admissions in December for acute HF and then PNA. Patient was last
seen in the office on 03/08/2025 and was noted to have increased LE edema prompting increase in Lasix to 40 mg BID and due to ongoing LE edema the dose was increased to 60 mg a.m. and 40 mg p.m. just prior to admission. Patient states that she is
taking her Lasix dutifully, but has not noticed any improvement in her LE edema. Patient feels like she is not diuresing much with taking her Lasix dose, it feels generally ineffective to her. During previous admissions patient was eating a
restaurant heavy diet, but she says that is no longer the case and denies any excessive salt intake. Previous dry weight was 138 lbs and she currently weighs 150 lbs in the ER now.
-ECG reviewed by me looks like sinus bradycardia and Wenckebach
-Patient being admitted with acute HFpEF. proBNP in the ER 3390 which is her highest on record. Previous dry weight was 138 lbs and she currently weighs 150 lbs in the ER now.
-Lasix 60 mg IV BID ordered by me, patient was taking Lasix 60 mg a.m. and 40 mg p.m. daily prior to admission
-EF was preserved to 55 to 60% by echo 12/14/2024
-Patient is not chronically on BB due to underlying sinus bradycardia and the preference to continue amiodarone therapy for arrhythmia suppression
-Outpatient dose of losartan 50 mg BID has been continued
-Patient is not chronically on aldosterone antagonist due to preserved EF
-Patient is not chronically on SGLT2 inhibitor due to history of recurrent UTI
-Patient with known paroxysmal atrial fibrillation and typical flutter, but last known recurrence of arrhythmia was 07/2024. Outpatient dose of amiodarone 100 mg daily was continued for rhythm suppression. QTc 505 ms on ECG reviewed by me 05/01/2025
-Patient is no longer chronically anticoagulated due to thoracic aortic aneurysm that is managed by Dr. Mata at [facility]
-Patient has been recommended radiation therapy for RML nodule after suspicious findings on pathology even though the final report was negative for malignancy there is a strong suspicion for squamous metaplasia and the nodule is growing.
--- NOTE | 2025-05-01 15:59 | CM ---
CM met with pt and dtr/Pam bedside
Pt resides alone at [facility]
She is independent with her ADLs without AD, has a rolaltor for use as needed, drives+
Pt manages her own medications
Facility provides her all her meals
Pt denies SNF hx, has hx with [facility] and [facility]
PCP- Bridget Quintanilla
Rx- [facility]
Discharge Disposition- anticipate home, watch for VN needs
[2025-05-01] MEDS: ATROVENT NEBULES 0.5 MG INH (19:21)
[2025-05-01] MEDS: COZAAR 50 MG PO (21:38)
[2025-05-01] MEDS: LOVENOX 40 MG SC (21:38)
[2025-05-01] MEDS: ASPIR LOW (ENTERIC COATED) 81 MG PO (21:38)
[2025-05-01] MEDS: LIPITOR 20 MG PO (21:40)
[2025-05-01] MEDS: ELAVIL 10 MG PO (21:40)
[2025-05-02] VITALS (8 sets, daily range): BP systolic 98–149; BP diastolic 44–62; PULSE 59; O2SAT 91; BMI 27.6
--- NOTE | 2025-05-02 01:22 | PTCARENOTE ---
Pt aaox3, able to make needs known. 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 +2 BLLE edema. Tubigrips removed HS. Pt with crackles to B/L bases. SaO2 97% on RA. Continent of bowel/bladder, able to ambulate to
bathroom with standby assist. BLLE scabbed abrasions HIGH RIGGER. VSS. Call hernandez within reach. Care ongoing.
--- NOTE | 2025-05-02 07:29 | W.PN.HOSP.TC ---
Addendum entered and electronically signed by Thad Fletcher MD 05/02/25 18:27:
Hold Amiodarone
Original Note:
Today's Communication/Plan
-
Doing better. Continue IV Lasix. Continue to monitor on telemetry.
See plan
Assessment / Plan
Assessment / Plan
Physical Exam
General: Not in acute distress
HEENT: Normocephalic, Moist mucous membranes
Respiratory: Rhonchi bilaterally
Cardiac: S1/S2, Irregular Rhythm and Peripheral Edema (+3 pitting edema in BLLE )
GI: Soft, Non Tender, Non Distended and Normal Bowel Sounds
Musculoskeletal: No Cyanosis. Edema, Left Lower Extremity and Edema, Right Lower Extremity
Skin: Warm and Rash
Neuro: Awake and AO x 3
Psych: Calm and Intact Judgment/Insight
Assessment/Plan
84-year-old female past medical history of COPD, pulmonary nodule (patient reported 4 rounds of radiation to suspicious lung nodule with, Dr. Terrazas, in March 2025), Mobitz type I AV block, paroxysmal atrial fibrillation, HFpEF, aortic
aneurysm repair 2018, moderate aortic regurgitation, mild to moderate tricuspid regurgitation, hypertension, hyperlipidemia, acute purulent bronchitis secondary to Pseudomonas, GERD and anxiety presented with increased lower extremity edema and
exertional dyspnea, cough and 4 pound weight gain. She had been getting increasing doses of Lasix outpatient with her heel compressor Dr. Lola Rosa. Vital signs show blood pressure up to 170s systolic. Labs show hemoglobin of 9.9 which is
stable. Cardiac BNP of 3400. Chest x-ray showws small patchy right basilar opacity which could represent right middle lobe subsegmental atelectasis and or pneumonia. Patient with acute CHF exacerbation. Lasix 60 BID, cardiology consult.
#Acute on chronic HFpEF
- Continue to monitor on telemetry
- Cardiology consultation appreciated
- Lasix 60 mg IV BID
- bladder scan/straight cath
- daily weights
- I & Os
#Hypertension
- continue amlodipine and losartan
#hyperlipidemia
- continue atorvastatin
#paroxysmal atrial fibrillation
- continue amiodarone
#anxiety
- continue amitriptyline
#COPD
- continue guaifenesin, ipratropium bromide, loratadine and montelukast
#GERD
- continue omeprazole
#pulmonary nodule
follows with
completed radiation fo suspicious nodule
Code status: DNR
DVT prophylaxis: lovenox sq
Anticipated Discharge: 24 - 48 hours
Subjective/Interval History
-
Date of Service: May 02, 2025
Patient was seen and examined. She reported that she was feeling better.
Objective Data
-
Labs:
Laboratory Results
05/02/25
06:54
Sodium Pending
Potassium Pending
Chloride Pending
Carbon Dioxide Pending
BUN Pending
Creatinine Pending
Glucose Pending
Calcium Pending
Vital Signs:
Vital Signs
Temp Pulse Resp BP Pulse Ox
98.2 F 68 16 149/49 95
05/02/25 07:10 05/02/25 07:10 05/02/25 07:10 05/02/25 07:10 05/02/25 07:10
I&O
05/01/25 05/02/25 05/03/25
06:59 06:59 06:59
Intake Total 480 / 480
Output Total 1150 / 1150
Balance -670 / -670
[2025-05-02] MEDS: ATROVENT NEBULES 0.5 MG INH ×3 (08:00→19:45)
[2025-05-02 08:03] LABS: Blood Urea Nitrogen 14 mg/dl (7-17); Calcium 8.8 mg/dl (8.4-10.2); Carbon Dioxide 24 mmol/L (22-30); Chloride 108 mmol/L (98-107); Estimated Creatinine Clearance 50 ml/min; Glucose 76 mg/dl (70-99); Potassium 3.1 mmol/L (3.5-5.1); Sodium 137 mmol/L (135-145); eGFR > 60.00
--- NOTE | 2025-05-02 09:21 | PTCARENOTE ---
Pt HR in morning between 53-58bpm. RN kristyn Fletcher MD, about morning Losartan and Amiodarone, and if they should be held due to low HR. Per MD, both medications are to still be given and to continue monitoring on telemetry.
[2025-05-02] MEDS: PACERONE 100 MG PO (09:25)
[2025-05-02] MEDS: ASPIR LOW (ENTERIC COATED) 81 MG PO ×2 (09:25→21:37)
[2025-05-02] MEDS: MUCINEX 600 MG PO (09:25)
[2025-05-02] MEDS: CLARITIN 10 MG PO (09:25)
[2025-05-02] MEDS: PROTONIX 40 MG PO (09:25)
[2025-05-02] MEDS: NORVASC 5 MG PO (09:27)
[2025-05-02] MEDS: LASIX 60 MG IV ×2 (09:28→15:50)
[2025-05-02] MEDS: COZAAR 50 MG PO ×2 (09:28→21:37)
[2025-05-02] MEDS: SINGULAIR 10 MG PO (09:28)
[2025-05-02] MEDS: KLOR-CON 20 MEQ PO ×2 (11:02→21:37)
--- NOTE | 2025-05-02 11:27 | CM ---
Patient seen at bedside
resides at [facility]
PT eval - no PT needs
offered visiting nurse dx: acute HFpEF
declined VN
PLAN: Home, no needs when stable
--- NOTE | 2025-05-02 15:18 | W.PN.CARDCBS ---
Addendum entered and electronically signed by Mike Keyes MD 05/02/25 15:36:
I saw and examined the patient.
The RESIDENTIAL INTERIOR DESIGNER or PA's note was reviewed and I agree with the note.
Comment: General: Well developed, well nourished in NAD.
Neck: Supple, no JVD, HJR, carotids +2 B/L, no bruits bilaterally.
Heart: Non displaced PMI, RRR, no murmurs, No S3, S4, no rubs.
Lungs: Scattered rhonchi
Extremities: Mild lower extremity edema bilaterally.
Neuro: Grossly nonfocal, awake, alert and oriented x3.
She has diuresed. Will continue IV Lasix. Telemetry review with brief episodes of A-fib and also Wenkebach. Hold amiodarone. She has not been anticoagulated due to fear of thoracic aneurysm leak
Original Note:
Today's Communication / Plan
-
Hold amiodarone and recheck ECG in AM
Impression / Plan
-
PCP: Dr. Quintanilla
Card: Dr. Lola Rosa
Impression:
Admitted with acute HF 05/01/2025
Recent admission 12/27/24 until 12/31/2024
Recent admission for acute purulent bronchitis with Pseudomonas, AE COPD and Wenckebach 01/14/2025 until 01/16/2025
Acute HFpEF
COPD
Pulmonary nodule
Poorly defined RML nodule with increased uptake on PET/CT from 12/22/2024, appeared enlarged by most recent CT chest 03/09/2025 groundglass nodule in the RML increased in size with initial bronchoscopy brushings suspicious for malignancy although
final report was negative there was a suspicion of squamous metaplasia, outpatient evaluation by radiation oncology pending
Paroxysmal typical atrial flutter
Paroxysmal atrial fibrillation
s/p aneurysm repair
previously on amiodarone stopped due to GI issues in 06/2018 but later restarted for recurrent arrhythmia
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
Thoracic aortic aneurysm s/p repair by Dr. King at [facility] 05/2018
HTN
HLD
chronic LBBB
coronary artery calcification by chest CT, but nonobstructive CAD by cath 03/2018
COPD
Hypokalemia
ECHO 11/2017: EF 60%, mild MAC, mild MR, mild AI, mild TR, PAP 30-35mmHg, dilated ascending aorta 4.5cm
ECHO 08/04/2018: EF 60-65%, mild MR, aortic sclerosis, mild to mod TR, PAP 31-35mmHg, mild to mod NE, stable aortic root repair
Echo 12/14/2024: EF 55 to 60%, mild concentric LVH, moderate eccentric aortic regurgitation, mild to moderate TR, moderate pulmonic regurgitation
Dobutamine nuclear stress test 11/10/2024: Perfusion imaging was normal with no definitive evidence of ischemia or prior infarct, EF 57% without WMA
Plan:
-Weight is down 1 lb overnight with Lasix 60 mg IV BID. Patient was taking Lasix 60 mg a.m. and 40 mg p.m. daily prior to admission
-Cre is stable at 0.7 on my review of labs 05/02/2025
-Patient with hypokalemia, potassium down 3.1 by my review of labs on 05/02/2025. Hospitalist attending ordered KCl 20 mEq x2 for 05/02/2025
-EF was preserved to 55 to 60% by echo 12/14/2024
-Patient is not chronically on BB due to underlying sinus bradycardia and the preference to continue amiodarone therapy for arrhythmia suppression
-Outpatient dose of losartan 50 mg BID has been continued
-Patient is not chronically on aldosterone antagonist due to preserved EF
-Patient is not chronically on SGLT2 inhibitor due to history of recurrent UTI
-Patient with known paroxysmal atrial fibrillation and typical flutter, but last known recurrence of arrhythmia was 07/2024. ECG from 05/01/2025 looked like Leeanna, telemetry reviewed by me on 05/02/2025 also looks like Leeanna. Recheck ECG in
a.m., ordered by me. Outpatient dose of amiodarone 100 mg daily was continued initially, but will hold starting 05/02/25.
-Patient is no longer chronically anticoagulated due to thoracic aortic aneurysm that is managed by Dr. Mata at [facility]
-Patient has been recommended radiation therapy for RML nodule after suspicious findings on pathology even though the final report was negative for malignancy there is a strong suspicion for squamous metaplasia and the nodule is growing.
HPI: Patient came to the ER today with increased LE edema and feeling poor in general and is being admitted with acute HFpEF and cardiology has been consulted. Patient had [id number] admissions in December for acute HF and then PNA. Patient was last
seen in the office on 03/08/2025 and was noted to have increased LE edema prompting increase in Lasix to 40 mg BID and due to ongoing LE edema the dose was increased to 60 mg a.m. and 40 mg p.m. just prior to admission. Patient states that she is
taking her Lasix dutifully, but has not noticed any improvement in her LE edema. Patient feels like she is not diuresing much with taking her Lasix dose, it feels generally ineffective to her. During previous admissions patient was eating a
restaurant heavy diet, but she says that is no longer the case and denies any excessive salt intake. Previous dry weight was 138 lbs and she currently weighs 150 lbs in the ER now.
Progress Note - [facility]ard
Subjective
Date of Service: May 02, 2025
Objective
Labs:
05/01/25 11:14
05/02/25 06:54
Labs
Hgb 9.9 g/dL (12.0-16.0) L 05/01/25 11:14
Hct 29.9 % (37.0-47.0) L 05/01/25 11:14
Plt Count 215 10^3/uL (130-400) 05/01/25 11:14
Sodium 137 mmol/L (135-145) 05/02/25 06:54
Potassium 3.1 mmol/L (3.5-5.1) L 05/02/25 06:54
BUN 14 mg/dl (7-17) 05/02/25 06:54
Creatinine 0.7 mg/dL (0.6-1.0) 05/02/25 06:54
Glucose 76 mg/dl (70-99) 05/02/25 06:54
Troponins
05/01/25
11:14
Troponin I 0.015
Vital Signs and I&O:
Vital Signs
Temp Pulse Resp BP Pulse Ox
98.4 F 67 17 98/62 96
05/02/25 15:05 05/02/25 15:05 05/02/25 15:05 05/02/25 15:05 05/02/25 15:05
Vital Signs
Temp Pulse Resp BP Pulse Ox
98.4 F 67 17 98/62 96
05/02/25 15:05 05/02/25 15:05 05/02/25 15:05 05/02/25 15:05 05/02/25 15:05
Intake & Output
04/30/25 05/01/25 05/02/25 05/03/25
06:59 06:59 06:59 06:59
Intake Total 480 / 480
Output Total 1150 / 1150
Balance -670 / -670
Physical Exam
Physical Exam
GEN: NAD. AAOx3
LUNGS: RA. No wheeze
CV: Wenckebach on telemetry.
SKIN: No rash
[2025-05-02] MEDS: LOVENOX 40 MG SC (18:16)
[2025-05-02] MEDS: LIPITOR 20 MG PO (21:37)
[2025-05-02] MEDS: ELAVIL 10 MG PO (21:45)
[2025-05-03 03:20] VITALS: BP 142/52
[2025-05-03 06:00] VITALS: BMI 27.6
[2025-05-03 07:35] LABS: Hematocrit 29.9 % (37.0-47.0); Hemoglobin 10.1 g/dL (12.0-16.0); Mean Corp Hgb Conc. 33.8 g/dL (33.0-37.0); Mean Corpuscular Volume 90.9 fL (81.0-99.0); Platelet Count 216 10^3/uL (130-400); Red Cell Dist. Width 12.9 % (11.5-14.5)
[2025-05-03] MEDS: ATROVENT NEBULES 0.5 MG INH ×3 (07:43→19:34)
--- NOTE | 2025-05-03 07:53 | W.PN.HOSP.TC ---
Today's Communication/Plan
-
Continue IV Lasix
Continue to monitor on telemetry
Assessment / Plan
Assessment / Plan
Physical Exam
General: Not in acute distress
HEENT: Normocephalic, Moist mucous membranes
Respiratory: Rhonchi bilaterally
Cardiac: S1/S2, Irregular Rhythm and Peripheral Edema (+3 pitting edema in BLLE )
GI: Soft, Non Tender, Non Distended and Normal Bowel Sounds
Musculoskeletal: No Cyanosis. Edema, Left Lower Extremity and Edema, Right Lower Extremity
Skin: Warm and Rash
Neuro: Awake and AO x 3
Psych: Calm and Intact Judgment/Insight
Assessment/Plan
84-year-old female past medical history of COPD, pulmonary nodule (patient reported 4 rounds of radiation to suspicious lung nodule with, Dr. Terrazas, in March 2025), Mobitz type I AV block, paroxysmal atrial fibrillation, HFpEF, aortic
aneurysm repair 2018, moderate aortic regurgitation, mild to moderate tricuspid regurgitation, hypertension, hyperlipidemia, acute purulent bronchitis secondary to Pseudomonas, GERD and anxiety presented with increased lower extremity edema and
exertional dyspnea, cough and 4 pound weight gain. She had been getting increasing doses of Lasix outpatient with her product safety consultant Dr. Lola Rosa. Vital signs show blood pressure up to 170s systolic. Labs show hemoglobin of 9.9 which is
stable. Cardiac BNP of 3400. Chest x-ray showws small patchy right basilar opacity which could represent right middle lobe subsegmental atelectasis and or pneumonia. Patient with acute CHF exacerbation. Lasix 60 BID, cardiology consult.
#Acute on chronic HFpEF
- Continue to monitor on telemetry
- Cardiology consultation appreciated
- Lasix 60 mg IV BID
- bladder scan/straight cath
- daily weights
- I & Os
#Hypertension
- continue amlodipine and losartan
#hyperlipidemia
- continue atorvastatin
#paroxysmal atrial fibrillation
- continue amiodarone
#Continue to monitor on telemetry for significant pauses or high-grade AV block - Mobitz type I noted on admission
#anxiety
- continue amitriptyline
#COPD
- continue guaifenesin, ipratropium bromide, loratadine and montelukast
#GERD
- continue omeprazole
#pulmonary nodule
follows with
completed radiation fo suspicious nodule
Code Status: DNR
DVT Prophylaxis: Lovenox subq
On May 03, 2025, I called patient's son Orion, I discussed in detail patient's case with him, and I answered all of his questions and concerns to satisfaction.
Total time spent today on patient's care, including chart review, seeing and examining the patient, documentation, speaking extensively with patient and her son, was 65 minutes.
Anticipated Discharge: 24 - 48 hours
Subjective/Interval History
-
Date of Service: May 03, 2025
Patient was seen and examined. She denied any new symptoms or complaints.
Objective Data
-
Labs:
Laboratory Results
05/03/25
07:12
WBC 6.6
Hgb 10.1 L
Hct 29.9 L
Plt Count 216
Sodium Pending
Potassium Pending
Chloride Pending
Carbon Dioxide Pending
BUN Pending
Creatinine Pending
Glucose Pending
Calcium Pending
Vital Signs:
Vital Signs
Temp Pulse Resp BP Pulse Ox
98.5 F 76 14 142/52 93
05/03/25 03:20 05/03/25 07:45 05/03/25 07:45 05/03/25 03:20 05/03/25 07:45
I&O
05/02/25 05/03/25 05/04/25
06:59 06:59 06:59
Intake Total 480 / 480 900 / 900
Output Total 1150 / 1150
Balance -670 / -670 900 / 900
[2025-05-03 08:01] VITALS: BP 154/61
[2025-05-03 08:16] LABS: Blood Urea Nitrogen 12 mg/dl (7-17); Calcium 9.0 mg/dl (8.4-10.2); Carbon Dioxide 24 mmol/L (22-30); Chloride 106 mmol/L (98-107); Estimated Creatinine Clearance 58 ml/min; Glucose 84 mg/dl (70-99); Magnesium 2.0 mg/dl (1.6-2.3); Potassium 3.5 mmol/L (3.5-5.1); Sodium 134 mmol/L (135-145); eGFR > 60.00
[2025-05-03] MEDS: COZAAR 50 MG PO ×2 (08:19→20:32)
[2025-05-03] MEDS: ASPIR LOW (ENTERIC COATED) 81 MG PO ×2 (08:19→20:32)
[2025-05-03] MEDS: PROTONIX 40 MG PO (08:19)
[2025-05-03] MEDS: SINGULAIR 10 MG PO (08:19)
[2025-05-03] MEDS: MUCINEX 600 MG PO (08:19)
[2025-05-03] MEDS: CLARITIN 10 MG PO (08:19)
[2025-05-03] MEDS: NORVASC 5 MG PO (08:20)
[2025-05-03] MEDS: LASIX 60 MG IV (08:20)
--- NOTE | 2025-05-03 09:51 | PTOTSP ---
Dysphagia Evaluation
Patient presents with functional oral/pharyngeal swallow based on clinical bedside swallowing assessment. She has chronic dysphagia risk factors (i.e., COPD, HFpEF, GERD) but denied history of chronic dysphagia. If changes on CXR this admission
are felt to be an acute PNA, reconsult via video swallow study as needed to rule out silent aspiration.
Recommend:
1. Regular, Thin
2. Medications as best tolerated (prefers in puree)
3. Aspiration precautions: single sips/bites, slow rate, breaks for breathing, reflux precautions
4. Oral care 2-3x daily
5. Will s/o. Reconsult via video swallow study as needed
--- NOTE | 2025-05-03 10:55 | CM ---
Addendum entered by Mayda Xie 05/03/25 12:35:
Patient agreed to VN - prefers [facility]
spoke with [facility] liaison - referral placed in [facility]
PLAN: Home with [facility] VN when stable
[facility] fax #: [phone]
Original Note:
Patient seen at bedside
electrocardiogram today
offered vn-declines
PLAN: Home, no needs when stable
son will transport
[2025-05-03 11:30] VITALS: BP 127/45
--- NOTE | 2025-05-03 11:41 | W.PN.CARDCBS ---
Addendum entered and electronically signed by Mode Forman MD 05/03/25 15:27:
I saw and examined the patient.
The Fish Technologist's note was reviewed and I agree with the note.
Comment: Briefly, 84-year-old woman past medical history of heart failure preserved ejection fraction, A-fib/flutter, COPD, pulmonary nodules who presented to [place] emergency department with worsening edema and was admitted for acute on chronic
heart failure.
She has been treated with two days of IV diuretics without significant improvement in her volume status
Would recommend decreasing IV Lasix to 80 mg twice daily
Creatinine remains stable, would continue to monitor renal function and electrolytes
Still a few pounds above her prior dry weight. Continue daily standing weights.
Add Tubigrip's to help with lower extremity edema
Continue to monitor on telemetry for significant pauses or high-grade AV block - Mobitz type I noted on admission
Rest per Nurys Chaves
Original Note:
Today's Communication / Plan
-
Ongoing Mobitz 1 heart block, outpatient dose of amiodarone on hold
Minimal diuresis despite Lasix 60 mg IV BID, also minimal improvement in admission symptoms
Impression / Plan
-
PCP: Dr. Quintanilla
Card: Dr. Lola Rosa
Impression:
Admitted with acute HF 05/01/2025
Recent admission 12/27/24 until 12/31/2024
Recent admission for acute purulent bronchitis with Pseudomonas, AE COPD and Wenckebach 01/14/2025 until 01/16/2025
Acute HFpEF
COPD
Pulmonary nodule
Poorly defined RML nodule with increased uptake on PET/CT from 12/22/2024, appeared enlarged by most recent CT chest 03/09/2025 groundglass nodule in the RML increased in size with initial bronchoscopy brushings suspicious for malignancy although
final report was negative there was a suspicion of squamous metaplasia, outpatient evaluation by radiation oncology pending
Paroxysmal typical atrial flutter
Paroxysmal atrial fibrillation
s/p aneurysm repair
previously on amiodarone stopped due to GI issues in 06/2018 but later restarted for recurrent arrhythmia
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
Thoracic aortic aneurysm s/p repair by Dr. King at [facility] 05/2018
HTN
HLD
chronic LBBB
coronary artery calcification by chest CT, but nonobstructive CAD by cath 03/2018
COPD
Hypokalemia
Mobitz 1 heart block
ECHO 11/2017: EF 60%, mild MAC, mild MR, mild AI, mild TR, PAP 30-35mmHg, dilated ascending aorta 4.5cm
ECHO 08/04/2018: EF 60-65%, mild MR, aortic sclerosis, mild to mod TR, PAP 31-35mmHg, mild to mod [place], stable aortic root repair
Echo 12/14/2024: EF 55 to 60%, mild concentric LVH, moderate eccentric aortic regurgitation, mild to moderate TR, moderate pulmonic regurgitation
Dobutamine nuclear stress test 11/10/2024: Perfusion imaging was normal with no definitive evidence of ischemia or prior infarct, EF 57% without WMA
Plan:
-Weight unchanged overnight despite Lasix 60 mg IV BID. Patient was taking Lasix 60 mg a.m. and 40 mg p.m. daily prior to admission
-Patient weighs 141 lbs on 05/03/2025 and previous dry weight was 138 lbs. Patient reports minimal improvement in MIJARES.
-Cre is stable at 0.6 on my review of labs 05/03/2025
-Potassium improved to 3.5 on 05/03/2025 following supplementation 05/02/2025. Patient was not taking KCl prior to admission
-EF was preserved to 55 to 60% by echo 12/14/2024
-Patient is not chronically on BB due to underlying sinus bradycardia and the preference to continue amiodarone therapy for arrhythmia suppression
-Outpatient dose of losartan 50 mg BID has been continued
-Patient is not chronically on aldosterone antagonist due to preserved EF
-Patient is not chronically on SGLT2 inhibitor due to history of recurrent UTI
-ECG from 05/03/2025 reviewed by me, remains in Mobitz 1 heart block and chronic LBBB. Patient with known paroxysmal atrial fibrillation and typical flutter, but last known recurrence of arrhythmia was 07/2024. ECG on admission was also Mobitz 1
heart block. Patient denies feeling lightheaded or dizzy, but ongoing MIJARES. Will review with EP.
-Outpatient dose of amiodarone 100 mg daily on hold following dose that was given on 05/02/2025
-Patient is no longer chronically anticoagulated due to thoracic aortic aneurysm that is managed by Dr. Mata at [facility]
-Patient has been recommended radiation therapy for RML nodule after suspicious findings on pathology even though the final report was negative for malignancy there is a strong suspicion for squamous metaplasia and the nodule is growing.
HPI: Patient came to the ER today with increased LE edema and feeling poor in general and is being admitted with acute HFpEF and cardiology has been consulted. Patient had [id number] admissions in December for acute HF and then PNA. Patient was last
seen in the office on 03/08/2025 and was noted to have increased LE edema prompting increase in Lasix to 40 mg BID and due to ongoing LE edema the dose was increased to 60 mg a.m. and 40 mg p.m. just prior to admission. Patient states that she is
taking her Lasix dutifully, but has not noticed any improvement in her LE edema. Patient feels like she is not diuresing much with taking her Lasix dose, it feels generally ineffective to her. During previous admissions patient was eating a
restaurant heavy diet, but she says that is no longer the case and denies any excessive salt intake. Previous dry weight was 138 lbs and she currently weighs 150 lbs in the ER now.
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
Subjective
Date of Service: May 03, 2025
Ongoing MIJARES, no resting SOB
Objective
Labs:
05/03/25 07:12
05/03/25 07:12
Labs
Hgb 10.1 g/dL (12.0-16.0) L 05/03/25 07:12
Hct 29.9 % (37.0-47.0) L 05/03/25 07:12
Plt Count 216 10^3/uL (130-400) 05/03/25 07:12
Sodium 134 mmol/L (135-145) L 05/03/25 07:12
Potassium 3.5 mmol/L (3.5-5.1) 05/03/25 07:12
BUN 12 mg/dl (7-17) 05/03/25 07:12
Creatinine 0.6 mg/dL (0.6-1.0) 05/03/25 07:12
Glucose 84 mg/dl (70-99) 05/03/25 07:12
Troponins
05/01/25
11:14
Troponin I 0.015
Vital Signs and I&O:
Vital Signs
Temp Pulse Resp BP Pulse Ox
98.3 F 69 14 127/45 99
05/03/25 11:30 05/03/25 11:30 05/03/25 11:30 05/03/25 11:30 05/03/25 11:30
Vital Signs
Temp Pulse Resp BP Pulse Ox
98.3 F 69 14 127/45 99
05/03/25 11:30 05/03/25 11:30 05/03/25 11:30 05/03/25 11:30 05/03/25 11:30
Intake & Output
05/01/25 05/02/25 05/03/25 05/04/25
06:59 06:59 06:59 06:59
Intake Total 480 / 480 900 / 900
Output Total 1150 / 1150
Balance -670 / -670 900 / 900
Physical Exam
Physical Exam
GEN: NAD. AAOx3
LUNGS: RA. No wheeze
CV: Wenckebach on telemetry.
SKIN: No rash
[2025-05-03 15:02] VITALS: BP 124/51
[2025-05-03] MEDS: LASIX 80 MG IV (17:58)
[2025-05-03] MEDS: LOVENOX 40 MG SC (18:02)
[2025-05-03 19:21] VITALS: BP 146/57
[2025-05-03] MEDS: ELAVIL 10 MG PO (21:21)
[2025-05-03] MEDS: LIPITOR 20 MG PO (21:22)
[2025-05-03 23:07] VITALS: BP 155/60
[2025-05-04] VITALS (7 sets, daily range): BP systolic 121–147; BP diastolic 40–63; BMI 26.8
[2025-05-04 06:02] LABS: Urine Character Slightly Cloudy (Clear)
[2025-05-04 06:03] LABS: Urine Red Blood Cell 0-2 /HPF (0-2); Urine Squamous Cell 0-2 /LPF (Few)
[2025-05-04 06:04] LABS: Urine White Cell >100 /HPF (0-5)
[2025-05-04 07:35] LABS: Hematocrit 28.7 % (37.0-47.0); Hemoglobin 9.8 g/dL (12.0-16.0); Mean Corp Hgb Conc. 34.1 g/dL (33.0-37.0); Mean Corpuscular Volume 90.5 fL (81.0-99.0); Platelet Count 209 10^3/uL (130-400); Red Cell Dist. Width 13.0 % (11.5-14.5)
[2025-05-04] MEDS: ATROVENT NEBULES 0.5 MG INH ×3 (08:00→19:33)
[2025-05-04] MEDS: ASPIR LOW (ENTERIC COATED) 81 MG PO ×2 (08:06→20:53)
[2025-05-04] MEDS: COZAAR 50 MG PO ×2 (08:06→20:53)
[2025-05-04] MEDS: PROTONIX 40 MG PO (08:06)
[2025-05-04] MEDS: SINGULAIR 10 MG PO (08:06)
[2025-05-04] MEDS: CLARITIN 10 MG PO (08:06)
[2025-05-04] MEDS: NORVASC 5 MG PO (08:06)
[2025-05-04] MEDS: LASIX 80 MG IV ×2 (08:07→17:19)
[2025-05-04] MEDS: MUCINEX 600 MG PO (08:07)
--- NOTE | 2025-05-04 08:10 | W.PN.CARDCBS ---
Today's Communication / Plan
-
60 min of time today including talking with patient and family, nursing and orders.
Patient and family will discuss amongst themselves whether or not they would like to proceed with PPM and patient is agreeable to remain NPO for now, but I have asked her to let nursing know as soon as she decides whether or not she would like to
have PPM so that we can restart diet if she decides against PPM. I asked patient to try and let me know by lunchtime today what she would like to do.
I specifically reviewed with the patient and her son how they can get in touch with me as noted in my progress note
Impression / Plan
-
PCP: Dr. Quintanilla
Card: Dr. Lola Rosa
Impression:
Admitted with acute HF 05/01/2025
Recent admission 12/27/24 until 12/31/2024
Recent admission for acute purulent bronchitis with Pseudomonas, AE COPD and Wenckebach 01/14/2025 until 01/16/2025
Acute HFpEF
COPD
Pulmonary nodule
Poorly defined RML nodule with increased uptake on PET/CT from 12/22/2024, appeared enlarged by most recent CT chest 03/09/2025 groundglass nodule in the RML increased in size with initial bronchoscopy brushings suspicious for malignancy although
final report was negative there was a suspicion of squamous metaplasia, outpatient evaluation by radiation oncology pending
Paroxysmal typical atrial flutter
Paroxysmal atrial fibrillation
s/p aneurysm repair
previously on amiodarone stopped due to GI issues in 06/2018 but later restarted for recurrent arrhythmia
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
Thoracic aortic aneurysm s/p repair by Dr. King at [facility] 05/2018
HTN
HLD
chronic LBBB
coronary artery calcification by chest CT, but nonobstructive CAD by cath 03/2018
COPD
Hypokalemia
Mobitz 1 heart block
ECHO 11/2017: EF 60%, mild MAC, mild MR, mild AI, mild TR, PAP 30-35mmHg, dilated ascending aorta 4.5cm
ECHO 08/04/2018: EF 60-65%, mild MR, aortic sclerosis, mild to mod TR, PAP 31-35mmHg, mild to mod [place], stable aortic root repair
Echo 12/14/2024: EF 55 to 60%, mild concentric LVH, moderate eccentric aortic regurgitation, mild to moderate TR, moderate pulmonic regurgitation
Dobutamine nuclear stress test 11/10/2024: Perfusion imaging was normal with no definitive evidence of ischemia or prior infarct, EF 57% without WMA
Plan:
-Weight down to 137 lbs on 05/04/25 following increase to Lasix 80 mg IV BID 05/03/25 PM. Patient was taking Lasix 60 mg a.m. and 40 mg p.m. daily prior to admission
-Patient reports ongoing LE edema despite diuresis and now weighing less than previous dry weight. Will add B/L LE tubigrips
-Hypokalemic with potassium 3.4 on my review of labs 05/04/2025. KCl 40 mEq x 1 now ordered by me
-Cre stable at 0.7 on 05/04/2025
-EF was preserved to 55 to 60% by echo 12/14/2024
-Patient is not chronically on BB due to underlying sinus bradycardia and the preference to continue amiodarone therapy for arrhythmia suppression
-Outpatient dose of losartan 50 mg BID has been continued
-Patient is not chronically on aldosterone antagonist due to preserved EF
-Patient is not chronically on SGLT2 inhibitor due to history of recurrent UTI
-Telemetry reviewed by me and patient continues with Mobitz 1 heart block.
-Patient has chronic LBBB and paroxysmal A-fib/flutter that is maintained with chronic amiodarone 100 mg daily therapy for rhythm suppression. Patient is not chronically on BB therapy due to history of sinus bradycardia and the preference for
amiodarone for arrhythmia suppression. Now the patient is having Mobitz 1 heart block and amiodarone is on hold. Talked with patient in the room and her son was on speaker phone, we talked for 22 minutes on 05/04/2025. We talked about Mobitz 1,
chronic LBBB and paroxysmal A-fib. We talked about PPM placement to allow for ongoing amiodarone therapy for rhythm suppression. We talked about PPM procedure and limitations following procedure. Patient and family had questions that were
answered. Patient son is concerned about thoracic aortic aneurysm leak that is followed by Dr. Mata at [facility] and most recently Jessica was on hold because of leaking aneurysm. We reviewed PPM placement procedure via left ACW. Patient's son also
states that he feels 'blindsided'by all of this information although patient acknowledges she is aware of the paroxysmal A-fib/flutter and LBBB then acknowledges that the only new information is winky block. Patient and family are going to consider
their options and I have made myself available for additional conversation and we discussed that the patient can reach out to her nurse, Darling, who is then able to reach out to me so that we can talk.
-Patient has been recommended radiation therapy for RML nodule after suspicious findings on pathology even though the final report was negative for malignancy there is a strong suspicion for squamous metaplasia and the nodule is growing.
HPI: Patient came to the ER today with increased LE edema and feeling poor in general and is being admitted with acute HFpEF and cardiology has been consulted. Patient had [id number] admissions in December for acute HF and then PNA. Patient was last
seen in the office on 03/08/2025 and was noted to have increased LE edema prompting increase in Lasix to 40 mg BID and due to ongoing LE edema the dose was increased to 60 mg a.m. and 40 mg p.m. just prior to admission. Patient states that she is
taking her Lasix dutifully, but has not noticed any improvement in her LE edema. Patient feels like she is not diuresing much with taking her Lasix dose, it feels generally ineffective to her. During previous admissions patient was eating a
restaurant heavy diet, but she says that is no longer the case and denies any excessive salt intake. Previous dry weight was 138 lbs and she currently weighs 150 lbs in the ER now.
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
Subjective
Date of Service: May 04, 2025
Ongoing LE edema
Objective
Labs:
05/04/25 07:07
Labs
Hgb 9.8 g/dL (12.0-16.0) L 05/04/25 07:07
Hct 28.7 % (37.0-47.0) L 05/04/25 07:07
Plt Count 209 10^3/uL (130-400) 05/04/25 07:07
Sodium 134 mmol/L (135-145) L 05/03/25 07:12
Potassium 3.5 mmol/L (3.5-5.1) 05/03/25 07:12
BUN 12 mg/dl (7-17) 05/03/25 07:12
Creatinine 0.6 mg/dL (0.6-1.0) 05/03/25 07:12
Glucose 84 mg/dl (70-99) 05/03/25 07:12
Troponins
05/01/25
11:14
Troponin I 0.015
Vital Signs and I&O:
Vital Signs
Temp Pulse Resp BP Pulse Ox
98.2 F 69 16 140/44 96
05/04/25 08:03 05/04/25 08:03 05/04/25 08:03 05/04/25 08:03 05/04/25 08:03
Vital Signs
Temp Pulse Resp BP Pulse Ox
98.2 F 69 16 140/44 96
05/04/25 08:03 05/04/25 08:03 05/04/25 08:03 05/04/25 08:03 05/04/25 08:03
Intake & Output
05/02/25 05/03/25 05/04/25 05/05/25
06:59 06:59 06:59 06:59
Intake Total 480 / 480 900 / 900 720 / 720
Output Total 1150 / 1150
Balance -670 / -670 900 / 900 720 / 720
Physical Exam
Physical Exam
GEN: NAD. AAOx3
LUNGS: RA. No wheeze
CV: Wenckebach on telemetry.
SKIN: No rash
[2025-05-04 08:17] LABS: Blood Urea Nitrogen 12 mg/dl (7-17); Calcium 9.2 mg/dl (8.4-10.2); Carbon Dioxide 25 mmol/L (22-30); Chloride 106 mmol/L (98-107); Estimated Creatinine Clearance 49 ml/min; Glucose 89 mg/dl (70-99); Magnesium 2.0 mg/dl (1.6-2.3); Potassium 3.4 mmol/L (3.5-5.1); Sodium 133 mmol/L (135-145); eGFR > 60.00
[2025-05-04] MEDS: KCL 40 MEQ PO (10:51)
--- NOTE | 2025-05-04 12:09 | W.PN.HOSP.TC ---
Today's Communication/Plan
-
IV Lasix
Pacemaker
Assessment / Plan
Assessment / Plan
Physical Exam
General: Not in acute distress
HEENT: Normocephalic, Moist mucous membranes
Respiratory: Rhonchi bilaterally
Cardiac: S1/S2, Irregular Rhythm and Peripheral Edema (+3 pitting edema in BLLE )
GI: Soft, Non Tender, Non Distended and Normal Bowel Sounds
Musculoskeletal: No Cyanosis. Edema, Left Lower Extremity and Edema, Right Lower Extremity
Skin: Warm and Rash
Neuro: Awake and AO x 3
Psych: Calm and Intact Judgment/Insight
Assessment/Plan
84-year-old female past medical history of COPD, pulmonary nodule (patient reported 4 rounds of radiation to suspicious lung nodule with, Dr. Terrazas, in March 2025), Mobitz type I AV block, paroxysmal atrial fibrillation, HFpEF, aortic
aneurysm repair 2018, moderate aortic regurgitation, mild to moderate tricuspid regurgitation, hypertension, hyperlipidemia, acute purulent bronchitis secondary to Pseudomonas, GERD and anxiety presented with increased lower extremity edema and
exertional dyspnea, cough and 4 pound weight gain. 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 Lola Rosa. Vital signs show blood pressure up to 170s systolic. Labs show hemoglobin of 9.9 which is
stable. Cardiac BNP of 3400. Chest x-ray showws small patchy right basilar opacity which could represent right middle lobe subsegmental atelectasis and or pneumonia. Patient with acute CHF exacerbation. Lasix 60 BID, cardiology consult.
#Acute on chronic HFpEF
- Continue to monitor on telemetry
- Cardiology consultation appreciated
- Lasix 80 mg IV BID
- bladder scan/straight cath
- daily weights
- I & Os
#Mobitz 1 Heart Block and Chronic LBBB
- In setting of A-FIb controlled with Amiodarone, ideally should get pacemaker
- Pacemaker placement as per cardio
#Cloudy, Foul Smelling Urine
- Patient stated she wanted a UA with reflex to culture, UA suggested UTI
- Follow urine culture
- Although no other significant symptoms of UTI, patient stated that when she has the urinary symptoms above, she has UTI
- Started Cefdinir for 5 days (Day 1 is 05/04/25)
#Hypertension
- continue amlodipine and losartan
#hyperlipidemia
- continue atorvastatin
#paroxysmal atrial fibrillation
- continue amiodarone
#Continue to monitor on telemetry for significant pauses or high-grade AV block - Mobitz type I noted on admission
#anxiety
- continue amitriptyline
#COPD
- continue guaifenesin, ipratropium bromide, loratadine and montelukast
#GERD
- continue omeprazole
#pulmonary nodule
follows with
completed radiation fo suspicious nodule
Code Status: DNR
DVT Prophylaxis: Lovenox subq
On May 03, 2025, I called patient's son Orion, I discussed in detail patient's case with him, and I answered all of his questions and concerns to satisfaction.
Total time spent today on patient's care, including chart review, seeing and examining the patient, documentation, speaking extensively with patient and her son, was 65 minutes.
Anticipated Discharge: 24 - 48 hours
Subjective/Interval History
-
Date of Service: May 04, 2025
Patient was seen and examined. She denied any new complaints.
Objective Data
-
Labs:
Laboratory Results
05/04/25
07:07
WBC 5.9
Hgb 9.8 L
Hct 28.7 L
Plt Count 209
Sodium 133 L
Potassium 3.4 L
Chloride 106
Carbon Dioxide 25
BUN 12
Creatinine 0.7
Glucose 89
Calcium 9.2
Vital Signs:
Vital Signs
Temp Pulse Resp BP Pulse Ox
98.1 F 81 16 147/56 96
05/04/25 11:07 05/04/25 11:07 05/04/25 11:07 05/04/25 11:07 05/04/25 11:07
I&O
05/03/25 05/04/25 05/05/25
06:59 06:59 06:59
Intake Total 900 / 900 720 / 720
Balance 900 / 900 720 / 720
--- NOTE | 2025-05-04 15:31 | CM ---
Patient seen at bedside
patient unavailable-pacemaker
referral in [facility] for [facility]-accepted
PLAN: Home with [facility] when stable
[facility] fax #: [phone]
--- NOTE | 2025-05-04 17:07 | ITS.CL.PACE ---
Assembler Musical Equipment - Pacemaker Implant
Pacemaker Implant
Procedure Report:
PACEMAKER IMPLANT REPORT
Primary Care Provider: Dr Bridget Quintanilla
Primary file keeper: Dr Lola Rosa
Date of Procedure: 05/04/25
Procedure:
1: Implantation of dual-chamber permanent pacemaker utilizing the left bundle branch for conduction system pacing
2: Right heart catheterization
Indication/Diagnosis:
Non-reversible symptomatic bradycardia due to both sinus node dysfunction as well as documented second atrioventricular block.
Recurrent decompensated heart failure with preserved ejection fraction and during this hospital stay no significant change in symptoms despite aggressive IV Lasix diuresis, right heart catheterization is requested to better assess intravascular
volume/pressures to help guide diuretic therapy.
After informed consent was obtained, 'time out' was called and confirmed, the patient was prepped and draped in a sterile fashion. Lidocaine with epi was used for local anesthesia. Central venous access was obtained via subclavian venipuncture. An
incision was made along the left chest and a pre-pectoral pocket was formed. Using a Seldinger technique and peel-away sheaths, the pacing leads were placed under fluoroscopic guidance.
Fluoroscopy was used to determine likely anatomic site for left bundle branch pacing. The Medtronic C315 sheath was used to deliver the Medtronic 3830 Selectsecure pacing lead with the helix exposed just exposed from the sheath tip during continuous
monitoring when pacemapping the septum during gentle clockwise rotation to obtain a paced QRS morphology of a W pattern in lead V1. Once the suspected optimal site was identified, lead deployment was performed with several rapid rotations as paced
QRS morphology was intermittently monitored until a paced QRS complex in lead V1 demonstrated development of an R wave (qR).
Unipolar pacing impedance dropped by approximately 100 Ohms suggesting it had reached the left ventricular subendocardial.
Stable VEgm injury current is present throughout final lead position including at end of case, suggesting there was no perforation through the septum into the LV cavity.
Unipolar pacing impedance is 1000 Ohms
Unipolar pacing threshold is stable at 1 V @ 0.5 ms.
Final conduction system paced QRS complex duration is 100 ms
LVAT is 90 ms and peak V5 -> peak V1 timing is 47 ms
There is QRS transition to LVSP / selective LBBP during threshold testing
Right atrial lead was placed at the RAA.
Right Heart Cath Hemodynamics:
RA: 1 mmHg, RV: 23/0 mmHg, PA: 22/4 mmHg,
PCWP: 5 mmHg, PA sat:77 %
CO: 4.5 L/min, CI: 2.8
SVR 1000
Once testing (see below) showed adequate and stable function, the leads were secured using the suture sleeves. The pocket was liberally irrigated with antibiotic solution. The leads were connected to the generator header and the leads and
generator were placed within the pocket. Fluoroscopy confirmed stable lead position. The pocket was closed in the typical fashion.
Fluoroscopy was used to guide lead placement.
IMPLANTS:
Medtronic [id number], SN: [id number], Left Pectoral
RA: Medtronic 5076-45, SN: [id number], RAA
Left Bundle: Medtronic 3830 , SN:[id number], Interventricular septum at LBB
DEVICE TESTING:
Sensing: RA 0.9 mV, RV 20 mV
Capture: RA 1 V@0.4ms, RV 1 V@0.4ms
Ohms: RA 440, RV 900
FINAL PROGRAMMING
Ramsey Pacing: DDDR 50-130 ppm
COMPLICATIONS:
None
CONCLUSIONS:
1: Successful implant of dual chamber permanent pacemaker utilizing Left Bundle Branch conduction system capture for ventricular resynchronization pacing.
2: Right heart cath demonstrates she is not intravascularly volume overloaded
RECOMMENDATIONS:
1. Post-op care (tele, CXR, IV abx)
2. In-Office wound check in 5-7 days
Copy to:
Dr Bridget Quintanilla
Dr Lola Rosa
[2025-05-04] MEDS: OMNICEF 300 MG PO (17:19)
[2025-05-04] MEDS: LOVENOX 40 MG SC (17:26)
--- NOTE | 2025-05-04 18:17 | PTCARENOTE ---
Patient went down for a Left sided D chamber pacemaker with settings for a 50-120 beats per minute range. Steri strips and aquacel dry and intact L arm in immobilizer. Denies pain/discomfort. VSS. A paced on tele.
[2025-05-04] MEDS: LIPITOR 20 MG PO (21:01)
[2025-05-04] MEDS: ELAVIL 10 MG PO (21:01)
[2025-05-04] MEDS: ANCEF 5 IV (22:24)
[2025-05-05] VITALS (7 sets, daily range): BP systolic 108–144; BP diastolic 46–53; PULSE 81; BMI 27.2
[2025-05-05] MEDS: ANCEF 5 IV (05:57)
[2025-05-05] MEDS: OMNICEF 300 MG PO ×2 (05:57→18:06)
[2025-05-05] MEDS: ATROVENT NEBULES 0.5 MG INH ×3 (06:11→17:38)
[2025-05-05 07:37] LABS: Hematocrit 32.3 % (37.0-47.0); Hemoglobin 10.6 g/dL (12.0-16.0); Mean Corp Hgb Conc. 32.8 g/dL (33.0-37.0); Mean Corpuscular Volume 92.8 fL (81.0-99.0); Platelet Count 209 10^3/uL (130-400); Red Cell Dist. Width 13.1 % (11.5-14.5)
[2025-05-05 08:04] LABS: Blood Urea Nitrogen 13 mg/dl (7-17); Calcium 9.5 mg/dl (8.4-10.2); Carbon Dioxide 25 mmol/L (22-30); Chloride 107 mmol/L (98-107); Estimated Creatinine Clearance 50 ml/min; Glucose 84 mg/dl (70-99); Magnesium 2.2 mg/dl (1.6-2.3); Potassium 4.0 mmol/L (3.5-5.1); Sodium 138 mmol/L (135-145); eGFR > 60.00
--- NOTE | 2025-05-05 08:05 | W.PN.HOSP.TC ---
Today's Communication/Plan
-
Continue IV Lasix
Follow urine culture
Assessment / Plan
Assessment / Plan
Physical Exam
General: Not in acute distress
HEENT: Normocephalic, Moist mucous membranes
Respiratory: Rhonchi bilaterally
Cardiac: S1/S2, Irregular Rhythm and Peripheral Edema (+3 pitting edema in BLLE )
GI: Soft, Non Tender, Non Distended and Normal Bowel Sounds
Musculoskeletal: No Cyanosis. Edema, Left Lower Extremity and Edema, Right Lower Extremity
Skin: Warm and Rash
Neuro: Awake and AO x 3
Psych: Calm and Intact Judgment/Insight
Assessment/Plan
84-year-old female past medical history of COPD, pulmonary nodule (patient reported 4 rounds of radiation to suspicious lung nodule with, Dr. Terrazas, in March 2025), Mobitz type I AV block, paroxysmal atrial fibrillation, HFpEF, aortic
aneurysm repair 2018, moderate aortic regurgitation, mild to moderate tricuspid regurgitation, hypertension, hyperlipidemia, acute purulent bronchitis secondary to Pseudomonas, GERD and anxiety presented with increased lower extremity edema and
exertional dyspnea, cough and 4 pound weight gain. She had been getting increasing doses of Lasix outpatient with her plan consultant Dr. Lola Rosa. Vital signs show blood pressure up to 170s systolic. Labs show hemoglobin of 9.9 which is
stable. Cardiac BNP of 3400. Chest x-ray showws small patchy right basilar opacity which could represent right middle lobe subsegmental atelectasis and or pneumonia. Patient with acute CHF exacerbation. Lasix 60 BID, cardiology consult.
#Acute on chronic HFpEF
- Continue to monitor on telemetry
- Cardiology consultation appreciated
- Continue IV Lasix 80 mg BID given increase in weight and still appearing volume overloaded
- bladder scan/straight cath
- daily weights
- I & Os
#Mobitz 1 Heart Block and Chronic LBBB
- In setting of A-FIb controlled with Amiodarone, ideally should get pacemaker
- Pacemaker placement took place on 05/04/25
#Cloudy, Foul Smelling Urine
- Patient stated she wanted a UA with reflex to culture, UA suggested UTI
- Follow urine culture -- growing E. coli
- Although no other significant symptoms of UTI, patient stated that when she has the urinary symptoms above, she has UTI
- Started Cefdinir for 5 days (Day 1 is 05/04/25)
#Hypertension
- continue amlodipine and losartan
#hyperlipidemia
- continue atorvastatin
#paroxysmal atrial fibrillation
- continue amiodarone
#Continue to monitor on telemetry for significant pauses or high-grade AV block - Mobitz type I noted on admission
#anxiety
- continue amitriptyline
#COPD
- continue guaifenesin, ipratropium bromide, loratadine and montelukast
#GERD
- continue omeprazole
#pulmonary nodule
follows with
completed radiation fo suspicious nodule
Code Status: DNR
DVT Prophylaxis: Lovenox subq
On May 03, 2025, I called patient's son Orion, I discussed in detail patient's case with him, and I answered all of his questions and concerns to satisfaction.
On May 04, 2025, I spoke in-person to patient's son Orion, I discussed in detail patient's case with him, and I answered all of his questions and concerns to satisfaction.
Anticipated Discharge: Within 24 hours
Subjective/Interval History
-
Date of Service: May 05, 2025
Patient was seen and examined. She was doing well and denied any new symptoms or complaints.
Objective Data
-
Labs:
Laboratory Results
05/05/25
07:13
WBC 7.0
Hgb 10.6 L
Hct 32.3 L
Plt Count 209
Sodium 138
Potassium 4.0
Chloride 107
Carbon Dioxide 25
BUN 13
Creatinine 0.7
Glucose 84
Calcium 9.5
Vital Signs:
Vital Signs
Temp Pulse Resp BP Pulse Ox
98.1 F 76 16 144/50 98
05/05/25 07:30 05/05/25 07:30 05/05/25 07:30 05/05/25 07:30 05/05/25 07:30
I&O
05/04/25 05/05/25 05/06/25
06:59 06:59 06:59
Intake Total 720 / 720
Output Total 1250 / 1250
Balance 720 / 720 -1250 / -1250
[2025-05-05] MEDS: TYLENOL 650 MG PO ×2 (08:46→16:07)
[2025-05-05] MEDS: SINGULAIR 10 MG PO (08:46)
[2025-05-05] MEDS: COZAAR 50 MG PO ×2 (08:46→21:14)
[2025-05-05] MEDS: LASIX 80 MG IV ×2 (08:46→16:04)
[2025-05-05] MEDS: MUCINEX 600 MG PO (08:47)
[2025-05-05] MEDS: CLARITIN 10 MG PO (08:47)
[2025-05-05] MEDS: ASPIR LOW (ENTERIC COATED) 81 MG PO ×2 (08:47→21:14)
[2025-05-05] MEDS: NORVASC 5 MG PO (08:47)
[2025-05-05] MEDS: PROTONIX 40 MG PO (08:47)
--- NOTE | 2025-05-05 10:20 | W.PN.CARDCBS ---
Addendum entered and electronically signed by Cedric Renee MD 05/05/25 11:01:
I saw and examined the patient.
The Level Vial Setter's note was reviewed and I agree with the note.
Comment:
GEN: No distress, awake, Ox3
HEENT: supple, anicteric, mmm
LUNGS: CTA, no wheezes/rales
CV: Reg, S1/S2, 1/6 syst LSB, no gallop
ABD: soft, BS+, NT/ND
EXT: No edema
NEURO: Gross non-focal
SKIN: No rash
Plan:
Pacemaker site overall stable. Will continue IV diuresis today and then switch to Lasix 60 mg p.o. twice daily tomorrow in a.m. for discharge.
Creatinine stable at 0.7.
Check BMP in 1 week. Will arrange follow-up for incision check.
Would revisit reinitiation of anticoagulation pending device checks and evaluation of A-fib burden. Continue amiodarone 100 mg daily for now.
Original Note:
Today's Communication / Plan
-
Continue IV diuresis for another 24 hours then consider transition to oral Lasix 60 mg twice a day at discharge
Replete potassium with ongoing IV diuresis
BMP 1 week after discharge, prescription placed on chart
Plan is for patient to go home with , outpatient cardiology follow-up and incision check have been arranged
Impression / Plan
-
PCP: Dr. Quintanilla
Card: Dr. Lola Rosa
Impression:
Admitted with acute HF 05/01/2025
Recent admission 12/27/24 until 12/31/2024
Recent admission for acute purulent bronchitis with Pseudomonas, AE COPD and Wenckebach 01/14/2025 until 01/16/2025
Acute HFpEF, probnp [id number]
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
s/p Dual-chamber Medtronic pacemaker utilizing left bundle branch block for conduction system pacing 05/04/2025
COPD
Pulmonary nodule
Poorly defined RML nodule with increased uptake on PET/CT from 12/22/2024, appeared enlarged by most recent CT chest 03/09/2025 groundglass nodule in the RML increased in size with initial bronchoscopy brushings suspicious for malignancy although
final report was negative there was a suspicion of squamous metaplasia, outpatient evaluation by radiation oncology pending
Paroxysmal typical atrial flutter
Paroxysmal atrial fibrillation
s/p aneurysm repair
previously on amiodarone stopped due to GI issues in 06/2018 but later restarted for recurrent arrhythmia
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
Thoracic aortic aneurysm s/p repair by Dr. King at [facility] 05/2018
HTN
HLD
chronic LBBB
coronary artery calcification by chest CT, but nonobstructive CAD by cath 03/2018
COPD
Hypokalemia
Mobitz 1 heart block
ECHO 11/2017: EF 60%, mild MAC, mild MR, mild AI, mild TR, PAP 30-35mmHg, dilated ascending aorta 4.5cm
ECHO 08/04/2018: EF 60-65%, mild MR, aortic sclerosis, mild to mod TR, PAP 31-35mmHg, mild to mod NC, stable aortic root repair
Echo 12/14/2024: EF 55 to 60%, mild concentric LVH, moderate eccentric aortic regurgitation, mild to moderate TR, moderate pulmonic regurgitation
Dobutamine nuclear stress test 11/10/2024: Perfusion imaging was normal with no definitive evidence of ischemia or prior infarct, EF 57% without WMA
Plan:
Patient with chronic left bundle branch block, paroxysmal atrial fibs flutter maintained on chronic amiodarone at 100 mg daily for arrhythmia suppression. She has history of sinus bradycardia, intermittent AV block, Mobitz 1. Patient underwent
dual-chamber Medtronic pacemaker implant with left bundle pacing conduction system 05/04/2025. Incision appears clean dry intact with mild ecchymosis. Post implant chest x-ray without pneumothorax. EKG and telemetry reviewed which shows a sensed
rhythm with left bundle pacing.
- Incision check scheduled, reviewed restrictions and limitations post pacemaker with patient
Heart failure with preserved ejection fraction, ongoing diuresis
-Weight up 2 lbs overnight, still has evidence of volume overload on examination. Would continue IV diuresis with Lasix 80 mg IV BID (dose was increased 05/03/25 PM) for another 24 hours then consider transition to oral Lasix. Patient was taking
Lasix 60 mg a.m. and 40 mg p.m. daily prior to admission. Would discharge home on 60 mg p.o. twice daily
-Patient reports ongoing LE edema despite diuresis, continue B/L LE tubigrips
-Renal function and electrolytes stable, she did require potassium repletion 05/04/2025. Will give additional 40 mg x 1 today.
-Cre stable at 0.7 on 05/05/2025. Order placed on chart
-Will need BMP 1 week postdischarge
-EF was preserved to 55 to 60% by echo 12/14/2024
-Patient is not chronically on BB due to underlying sinus bradycardia. Now status post pacemaker implant. Beta-marvel could be started if needed
-Outpatient dose of losartan 50 mg BID has been continued
-Patient is not chronically on aldosterone antagonist due to preserved EF
-Patient is not chronically on SGLT2 inhibitor due to history of recurrent UTI
-Patient has thoracic aortic aneurysm leak that is followed by Dr. Mata at [facility] and most recently Xarelto was on hold because of leaking aneurysm. Can monitor A-fib burden through pacemaker. Patient currently remains off anticoagulation
-Patient has been recommended radiation therapy for RML nodule after suspicious findings on pathology even though the final report was negative for malignancy there is a strong suspicion for squamous metaplasia and the nodule is growing.
Plan for patient to go home with VN. Outpatient cardiology follow-up has been arranged. Lab slip for basic metabolic panel in 1 week placed on patient chart.
HPI: Patient came to the ER today with increased LE edema and feeling poor in general and is being admitted with acute HFpEF and cardiology has been consulted. Patient had [id number] admissions in December for acute HF and then PNA. Patient was last
seen in the office on 03/08/2025 and was noted to have increased LE edema prompting increase in Lasix to 40 mg BID and due to ongoing LE edema the dose was increased to 60 mg a.m. and 40 mg p.m. just prior to admission. Patient states that she is
taking her Lasix dutifully, but has not noticed any improvement in her LE edema. Patient feels like she is not diuresing much with taking her Lasix dose, it feels generally ineffective to her. During previous admissions patient was eating a
restaurant heavy diet, but she says that is no longer the case and denies any excessive salt intake. Previous dry weight was 138 lbs and she currently weighs 150 lbs in the ER now.
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
Subjective
Date of Service: May 05, 2025
Patient seen and examined. Patient resting comfortably in chair. Reports some incisional discomfort from pacemaker yesterday. Was able to ambulate around unit and still feels a little short of breath and notes some swelling in her legs. Denies
chest pain or shortness of breath at rest
Objective
Labs:
05/05/25 07:13
05/05/25 07:13
Labs
Hgb 10.6 g/dL (12.0-16.0) L 05/05/25 07:13
Hct 32.3 % (37.0-47.0) L 05/05/25 07:13
Plt Count 209 10^3/uL (130-400) 05/05/25 07:13
Sodium 138 mmol/L (135-145) 05/05/25 07:13
Potassium 4.0 mmol/L (3.5-5.1) 05/05/25 07:13
BUN 13 mg/dl (7-17) 05/05/25 07:13
Creatinine 0.7 mg/dL (0.6-1.0) 05/05/25 07:13
Glucose 84 mg/dl (70-99) 05/05/25 07:13
Vital Signs and I&O:
Vital Signs
Temp Pulse Resp BP Pulse Ox
98.1 F 76 16 144/50 98
05/05/25 07:30 05/05/25 08:46 05/05/25 07:30 05/05/25 08:46 05/05/25 07:30
Vital Signs
Temp Pulse Resp BP Pulse Ox
98.1 F 76 16 144/50 98
05/05/25 07:30 05/05/25 08:46 05/05/25 07:30 05/05/25 08:46 05/05/25 07:30
Intake & Output
05/03/25 05/04/25 05/05/25 05/06/25
06:59 06:59 06:59 06:59
Intake Total 900 / 900 720 / 720
Output Total 1250 / 1250
Balance 900 / 900 720 / 720 -1250 / -1250
Physical Exam
Physical Exam
GEN: No distress, awake, Ox3, sitting in chair
HEENT: supple, anicteric, mmm
LUNGS: CTA, no wheezes/rales
CV: Reg, S1/S2, 1/6 systolic murmur
Chest: Mild ecchymosis with minimal heme on Aquacel status post pacemaker implant. Pressure dressing and sling remain intact
ABD: soft, BS+, NT/ND
EXT: +1 lower extremity edema, no clubbing cyanosis
NEURO: Gross non-focal
SKIN: No rash, warm, dry, pink
--- NOTE | 2025-05-05 11:49 | CM ---
CM following re: discharge planking.
Reviewed pt's chart, met with pt.
Pt stated she was told by MD she will be discharged home tomorrow and pt stated she will go to her daughter's house for a few days and after she will return back to her apartment at [facility].
IMM reviewed, placed on chart, pt has a copy.
A referral to [facility] noted.
Please fax discharge instruction to [facility] at [phone]
D/C plan: home with [facility] and family support. Daughter to transport.
[2025-05-05] MEDS: KCL 40 MEQ PO (12:14)
--- NOTE | 2025-05-05 17:00 | PTCARENOTE ---
L arm sling removed. New gown placed.
[2025-05-05] MEDS: LOVENOX 40 MG SC (18:06)
[2025-05-05] MEDS: LIPITOR 20 MG PO (21:14)
[2025-05-05] MEDS: ELAVIL 10 MG PO (21:14)
[2025-05-06 03:22] VITALS: BP 110/46
[2025-05-06] MEDS: OMNICEF 300 MG PO (06:17)
[2025-05-06 06:56] VITALS: BMI 26.8
[2025-05-06 07:00] VITALS: BP 148/52
[2025-05-06] MEDS: ATROVENT NEBULES 0.5 MG INH ×2 (07:36→13:36)
[2025-05-06] MEDS: LASIX 80 MG IV ×2 (08:49→15:21)
[2025-05-06] MEDS: NORVASC 5 MG PO (08:49)
[2025-05-06] MEDS: SINGULAIR 10 MG PO (08:49)
[2025-05-06] MEDS: CLARITIN 10 MG PO (08:49)
[2025-05-06] MEDS: ASPIR LOW (ENTERIC COATED) 81 MG PO (08:49)
[2025-05-06] MEDS: COZAAR 50 MG PO (08:50)
[2025-05-06] MEDS: MUCINEX 600 MG PO (08:50)
[2025-05-06] MEDS: PROTONIX 40 MG PO (08:50)
[2025-05-06] MEDS: FLUSH (NSS) 2 FLUSH IV (08:50)
[2025-05-06] MEDS: TYLENOL 650 MG PO (08:57)
[2025-05-06 11:00] VITALS: BP 122/61
[2025-05-06 11:05] LABS: Hematocrit 34.8 % (37.0-47.0); Hemoglobin 11.5 g/dL (12.0-16.0); Mean Corp Hgb Conc. 33.0 g/dL (33.0-37.0); Mean Corpuscular Volume 94.8 fL (81.0-99.0); Platelet Count 243 10^3/uL (130-400); Red Cell Dist. Width 13.0 % (11.5-14.5)
--- NOTE | 2025-05-06 13:15 | W.PN.HOSP.TC ---
Today's Communication/Plan
-
Discharge today
Assessment / Plan
Assessment / Plan
Physical Exam
General: Not in acute distress
HEENT: Normocephalic, Moist mucous membranes
Respiratory: Rhonchi bilaterally
Cardiac: S1/S2, Irregular Rhythm and Peripheral Edema (+3 pitting edema in BLLE )
GI: Soft, Non Tender, Non Distended and Normal Bowel Sounds
Musculoskeletal: No Cyanosis. Edema, Left Lower Extremity and Edema, Right Lower Extremity
Skin: Warm and Rash
Neuro: Awake and AO x 3
Psych: Calm and Intact Judgment/Insight
Assessment/Plan
84-year-old female past medical history of COPD, pulmonary nodule (patient reported 4 rounds of radiation to suspicious lung nodule with, Dr. Terrazas, in March 2025), Mobitz type I AV block, paroxysmal atrial fibrillation, HFpEF, aortic
aneurysm repair 2018, moderate aortic regurgitation, mild to moderate tricuspid regurgitation, hypertension, hyperlipidemia, acute purulent bronchitis secondary to Pseudomonas, GERD and anxiety presented with increased lower extremity edema and
exertional dyspnea, cough and 4 pound weight gain. She had been getting increasing doses of Lasix outpatient with her hoop expander Dr. Lola Rosa. Vital signs show blood pressure up to 170s systolic. Labs show hemoglobin of 9.9 which is
stable. Cardiac BNP of 3400. Chest x-ray showws small patchy right basilar opacity which could represent right middle lobe subsegmental atelectasis and or pneumonia. Patient with acute CHF exacerbation. Lasix 60 BID, cardiology consult.
#Acute on chronic HFpEF
- Continue to monitor on telemetry
- Cardiology consultation appreciated
- On discharge: Lasix 60 mg p.o. twice daily
- bladder scan/straight cath
- daily weights
- I & Os
- Patient is not chronically on aldosterone antagonist due to preserved EF
- Patient is not chronically on SGLT2 inhibitor due to history of recurrent UTI
- Check BMP in 1 week
#Mobitz 1 Heart Block and Chronic LBBB
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
- In setting of A-FIb controlled with Amiodarone, needed pacemaker
- Pacemaker placement took place on 05/04/25
#Paroxysmal Typical Atrial Flutter
#Paroxysmal Atrial Fibrillation
-Continue amiodarone 100 mg daily for now
-Not chronically anticoagulated due to thoracic aorta pseudoaneurysm and concern for possible leak
#Cloudy, Foul Smelling Urine
- Patient stated she wanted a UA with reflex to culture, UA suggested UTI
- Follow urine culture -- growing E. coli
- Although no other significant symptoms of UTI, patient stated that when she has the urinary symptoms above, she has UTI
- Continue Cefdinir for 5 days (Day 1 is 05/04/25)
#Hypokalemia
-Resolved
#Hypertension
- continue amlodipine and losartan
#Coronary artery calcification by chest CT, but nonobstructive CAD by cath 03/2018
#Hyperlipidemia
- continue atorvastatin
#Paroxysmal atrial fibrillation
- continue amiodarone
#Continue to monitor on telemetry for significant pauses or high-grade AV block - Mobitz type I noted on admission
#anxiety
- continue amitriptyline
#COPD
- continue guaifenesin, ipratropium bromide, loratadine and montelukast
#GERD
- continue omeprazole
#pulmonary nodule
follows with
completed radiation fo suspicious nodule
#Thoracic aortic aneurysm s/p repair by Dr. King at [facility] 05/2018
Code Status: DNR
DVT Prophylaxis: Lovenox subq
On May 03, 2025, I called patient's son Orion, I discussed in detail patient's case with him, and I answered all of his questions and concerns to satisfaction.
On May 04, 2025, I spoke in-person to patient's son Orion, I discussed in detail patient's case with him, and I answered all of his questions and concerns to satisfaction.
More than 30 minutes spent in discharge including
Final examination of the patient
Summarizing hospital stay
Instructions for continuing care to all relevant caregivers
Preparation of discharge records, prescriptions, and referral forms
Total time spent (in minutes): 41
Anticipated Discharge: Today
Subjective/Interval History
-
Date of Service: May 06, 2025
Patient was seen and examined. She reported feeling pretty good and she is ready to go home today.
Objective Data
-
Labs:
Laboratory Results
05/06/25
10:04
WBC 7.9
Hgb 11.5 L
Hct 34.8 L
Plt Count 243
Vital Signs:
Vital Signs
Temp Pulse Resp BP Pulse Ox
98.0 F 75 16 122/61 96
05/06/25 11:00 05/06/25 11:00 05/06/25 11:00 05/06/25 11:00 05/06/25 11:00
I&O
05/05/25 05/06/25 05/07/25
06:59 06:59 06:59
Intake Total 900 / 900
Output Total 1250 / 1250 150 / 150
Balance -1250 / -1250 750 / 750
[2025-05-06 15:00] VITALS: BP 104/42
--- NOTE | 2025-05-06 16:33 | CM ---
Patient seen at bedside
IMM explained & signed
careprort updated
stated will stay with dtr tonight & tomorrow then return to [facility]
PLAN: Home, with [facility]
Please fax discharge instruction to [facility] at [phone]
--- NOTE | 2025-05-08 11:15 | W.HF.CON ---
Heart Failure
- LV Function
Left ventricular function study result: LV Ejection fraction >/= 50% (ECHO 12/28/24)
Ejection Fraction Percentage: 55-60
- ARNI
Patient already on ARNI: No
Heart Failure ARNI Not Indicated: LV Ejection Fraction >/= 40%
- ACEI/ARB
Patient already on ACEI/ARB: Yes
- Beta Yadira
Patient already on Evidence Based Beta Yadira: No
Heart Failure Evidence Based Beta Yadira Not Indicated: LV Ejection Fraction > 40%
- Mineralocorticord Receptor Antagonist
Patient already on MRA: No
Heart Failure MRA Not Indicated: LV Ejection Fraction > 40%
- SGLT-2 Inhibitor
Patient already on SGLT-2 Inhibitor: No
Heart Failure SGLT-2 Inhibitor Contraindication: Patient Refusal (UTI)
- Afib Anticoagulation
Patient already on Anticoagulation for Afib: No
Heart Failure Afib Anticoagulation Contraindication: Dissecting Aorta (thoracic aorta pseudoaneurysm and concern for possible leak)
- NYHA CHF Classification
NYHA CHF Classification Level: Class III - Symptoms w/ min exertion, interferes w/ nml daily activity
- ACC/AHA Stage
ACC/AHA Stage: Stage C: Symptomatic Heart Failure
== END 2025-05-06 16:22 | disposition home health service (06) | DRG 242 ==
LOC: 3 WEST ACU 15:38
PROVIDERS: Emergency Medicine; Internal Medicine Cardiovascular Disease; Nurse Practitioner Adult Health; Nurse Practitioner Family; ADMITTING PHYSICIAN Hospitalist; ATTENDING PHYSICIAN Hospitalist; CONSULT PHYSICIAN Internal Medicine Cardiovascular Disease; EMERGENCY PHYSICIAN Student in an Organized Health Care Education/Training Program; FAMILY PHYSICIAN Family Medicine
PROC: 0JH606Z Insertion of Pacemaker, Dual Chamber into Chest Subcutaneous Tissue and Fascia, Open Approach (ICD-10-PCS; 2025-05-04)
PROC: 02HK3JZ Insertion of Pacemaker Lead into Right Ventricle, Percutaneous Approach (ICD-10-PCS; 2025-05-04)
PROC: 4A023N6 Measurement of Cardiac Sampling and Pressure, Right Heart, Percutaneous Approach (ICD-10-PCS; 2025-05-04)
PROC: 02H63JZ Insertion of Pacemaker Lead into Right Atrium, Percutaneous Approach (ICD-10-PCS; 2025-05-04)
DX: I11.0 Hypertensive heart disease with heart failure (principal); I50.33 Acute on chronic diastolic (congestive) heart failure; Z66 Do not resuscitate; Z87.891 Personal history of nicotine dependence; I48.0 Paroxysmal atrial fibrillation; F41.9 Anxiety disorder, unspecified; J44.89 Other specified chronic obstructive pulmonary disease; K21.9 Gastro-esophageal reflux disease without esophagitis; Z79.899 Other long term (current) drug therapy; Z87.440 Personal history of urinary (tract) infections; Z92.3 Personal history of irradiation; Z79.82 Long term (current) use of aspirin; I44.1 Atrioventricular block, second degree; I37.1 Nonrheumatic pulmonary valve insufficiency
CPT/HCPCS: 33208; 71045; 71046; 80048; 80053; 81003; 81015; 83735; 83880; 84484; 85025; 85027; 87070; 87077; 87086; 87186; 92610; 93005; 93451; 94640; 96374; 97116; 97162; 99291; C1769; C1785; C1898; Q9967

== ENCOUNTER → 2025-05-11 11:37 | Outpatient (REF) | payer MEDICARE, BC, SELFPAY ==
[2025-05-11 12:24] LABS: Hematocrit 34.1 % (37.0-47.0); Hemoglobin 11.2 g/dL (12.0-16.0); Mean Corp Hgb Conc. 32.8 g/dL (33.0-37.0); Mean Corpuscular Volume 96.6 fL (81.0-99.0); Nucleated Red Blood Cells % 0 %; Platelet Count 255 10^3/uL (130-400); Red Cell Dist. Width 12.8 % (11.5-14.5)
[2025-05-11 13:20] LABS: ALT (SGPT) 23 U/L (0-35); AST (SGOT) 30 U/L (14-36); Albumin 4.2 g/dl (3.5-5.0); Alkaline Phosphatase 87 U/L (38-126); Blood Urea Nitrogen 21 mg/dl (7-17); Calcium 9.6 mg/dl (8.4-10.2); Carbon Dioxide 24 mmol/L (22-30); Chloride 104 mmol/L (98-107); Glucose 86 mg/dl (70-99); Magnesium 2.1 mg/dl (1.6-2.3); Potassium 4.1 mmol/L (3.5-5.1); Sodium 135 mmol/L (135-145); Total Protein 6.8 g/dl (6.3-8.2); eGFR > 60.00
== END ==
LOC: REG 11:37
PROVIDERS: ATTENDING PHYSICIAN Family Medicine
DX: I50.23 Acute on chronic systolic (congestive) heart failure (principal)
CPT/HCPCS: 36415; 80053; 83735; 85025

== ENCOUNTER → 2025-05-27 11:08 | Outpatient (REF) | payer MEDICARE, BC, SELFPAY | LOC: RAD 11:08 | PROVIDERS: ATTENDING PHYSICIAN Radiology Radiation Oncology; FAMILY PHYSICIAN Family Medicine; REFERRING PHYSICIAN Internal Medicine Cardiovascular Disease | DX: C34.2 Malignant neoplasm of middle lobe, bronchus or lung (principal) | CPT/HCPCS: 71250 ==

== ENCOUNTER → 2025-06-26 09:35 | Outpatient (REF) | payer MEDICARE, BC, SELFPAY ==
[2025-06-26 11:33] LABS: ALT (SGPT) 15 U/L (0-35); AST (SGOT) 24 U/L (14-36); Blood Urea Nitrogen 16 mg/dl (7-17); Calcium 9.8 mg/dl (8.4-10.2); Carbon Dioxide 28 mmol/L (22-30); Chloride 105 mmol/L (98-107); Glucose 90 mg/dl (70-99); HDL Cholesterol 60 mg/dl; LDL Cholesterol, Calculated 81 mg/dl; Potassium 4.2 mmol/L (3.5-5.1); Sodium 137 mmol/L (135-145); Very Low Density Lipoprotein 14 mg/dl (0-30); eGFR > 60.00
== END ==
LOC: REG 09:35
PROVIDERS: ATTENDING PHYSICIAN Internal Medicine Cardiovascular Disease; FAMILY PHYSICIAN Family Medicine
DX: I50.30 Unspecified diastolic (congestive) heart failure (principal); E78.5 Hyperlipidemia, unspecified; I48.91 Unspecified atrial fibrillation
CPT/HCPCS: 36415; 80048; 80061; 83880; 84450; 84460

== ENCOUNTER → 2025-06-30 09:31 | Outpatient (REF) | payer MEDICARE, BC, SELFPAY ==
[2025-06-30 10:47] LABS: Blood Urea Nitrogen 13 mg/dl (7-17)
== END ==
LOC: REG 09:31
PROVIDERS: ATTENDING PHYSICIAN Nurse Practitioner Gerontology; FAMILY PHYSICIAN Family Medicine
DX: Z98.890 Other specified postprocedural states (principal); Z86.79 Personal history of other diseases of the circulatory system
CPT/HCPCS: 36415; 82565; 84520

== ENCOUNTER → 2025-07-11 14:56 | Outpatient (REF) | payer MEDICARE, BC, SELFPAY | LOC: RAD 14:56 | PROVIDERS: ATTENDING PHYSICIAN Nurse Practitioner Gerontology; FAMILY PHYSICIAN Family Medicine; REFERRING PHYSICIAN Internal Medicine Cardiovascular Disease | DX: Z98.890 Other specified postprocedural states (principal); Z86.79 Personal history of other diseases of the circulatory system; I71.00 Dissection of unspecified site of aorta | CPT/HCPCS: 71275; Q9967 ==

== ENCOUNTER → 2025-07-15 08:49 | Outpatient (REF) | payer MEDICARE, BC, SELFPAY | LOC: RCS 08:49 | PROVIDERS: ATTENDING PHYSICIAN Nurse Practitioner Gerontology; FAMILY PHYSICIAN Family Medicine | DX: Z98.890 Other specified postprocedural states (principal); Z86.79 Personal history of other diseases of the circulatory system; I71.00 Dissection of unspecified site of aorta | CPT/HCPCS: 93306 ==